=== PATIENT | female | born 1950 | race Caucasian/White ===

== ENCOUNTER 2018-01-26 15:19 | Emergency (ER) | payer MEDICARE, MEDICAID ==
[~2018-01-26] VITALS: Ht 160 cm; Wt 86.4 kg
[~2018-01-26 15:19] MED LIST: AMIT-189 PO; CARB-101 PO; CLON0.3T PO; GABA-532 PO; ONDA8TAB9 PO; PREN1TAB75 PO; PROP40TA72 PO
[2018-01-26 15:33] VITALS: BP 193/102
[2018-01-26] MEDS ORDERED: POTA10TA19 PO (16:21)
[2018-01-26] MEDS ORDERED: METF500T PO (16:21)
[2018-01-26] MEDS ORDERED: FURO40TA4 PO (16:21)
[2018-01-26] MEDS ORDERED: PANT-47 PO (16:21)
[2018-01-26] MEDS ORDERED: PROP40TA72 PO (16:21)
[2018-01-26] MEDS ORDERED: ALBU18HF2 INH (16:21)
[2018-01-26] MEDS ORDERED: NORT25CA PO (16:21)
[2018-01-26] MEDS ORDERED: UMEC62.5 INH (16:21)
[2018-01-26] MEDS ORDERED: CLON-529 PO (16:21)
== END 2018-01-26 16:34 | disposition home or self-care (01) ==
LOC: ER 15:19
DX: I10 Essential (primary) hypertension (principal); J44.9 Chronic obstructive pulmonary disease, unspecified; E11.9 Type 2 diabetes mellitus without complications; Z76.0 Encounter for issue of repeat prescription; G89.29 Other chronic pain; Z90.49 Acquired absence of other specified parts of digestive tract; Z88.8 Allergy status to other drugs, medicaments and biological substances
CPT/HCPCS: 99283

== ENCOUNTER 2020-05-30 00:11 | Emergency (ER) | payer MEDICARE ==
[~2020-05-30] VITALS: Ht 160 cm; Wt 84.1 kg
[~2020-05-30 00:11] MED LIST changes: -AMIT-189 PO; +BUSP5TAB3 PO; -CARB-101 PO; +CARV6.253 PO; -CLON0.3T PO; +CLON0.3T36 PO; +FURO40TA4 PO; -GABA-532 PO; +GABA300C PO; +LACT10SO67 PO; +LACT10SO7 PO; +LEVO25TA7 PO; +METF-950 PO; +NORT25CA PO; +ONDA-103 PO; -ONDA8TAB9 PO; +OXYC-658 PO; +PANT40TA54 PO; -PREN1TAB75 PO; +RIFA550T PO; +SPIR100T5 PO; +UMEC62.5 IH; +thiamine tablet PO
--- NOTE | 2020-05-30 00:38 | NUR ---
Pt is agitated and difficult to do a nurse assessment due to resistance to care.
[2020-05-30 00:50] LABS: BASOPHILS % (AUTO) 0.9 % (0-1); EOSINOPHILS # (AUTO) 0.2 X10'3 (0-0.9); EOSINOPHILS % (AUTO) 6.3 % (0-6); HEMATOCRIT 36.3 % (35.0-45.0); HEMOGLOBIN 12.1 g/dl (12.0-16.0); LYMPHOCYTES # (AUTO) 0.5 X10'3 (1.1-4.8); LYMPHOCYTES % (AUTO) 18.9 % (21-51); MEAN CORPUSCULAR HEMOGLOBIN 30.4 PG (27.0-31.0); MEAN CORPUSCULAR HGB CONC 33.3 g/dL (33.0-36.5); MEAN CORPUSCULAR VOLUME 91.4 FL (78-98); MEAN PLATELET VOLUME 8.1 FL (7.4-10.4); MONOCYTES # (AUTO) 0.6 X10'3 (0-0.9); MONOCYTES % (AUTO) 21.7 % (2-12); NEUTROPHILS # (AUTO) 1.4 X10'3 (1.8-7.7); NEUTROPHILS % (AUTO) 52.2 % (42-75); RED BLOOD COUNT 3.97 X10'6 (4.20-5.60); WHITE BLOOD COUNT 2.7 X10'3 (4.5-11.0)
[2020-05-30 00:56] LABS: ALANINE AMINOTRANSFERASE 44 U/L (12-78); ALBUMIN 3.4 G/DL (3.4-5.0); ALBUMIN/GLOBULIN RATIO 0.6 (1.1-1.5); ALKALINE PHOSPHATASE 129 IU/L (46-116); ANION GAP 11 (8-16); ASPARTATE AMINO TRANSFERASE 66 U/L (10-37); BILIRUBIN,TOTAL 1.1 MG/DL (0.1-1.0); BLOOD UREA NITROGEN 40 MG/DL (7-18); BUN/CREATININE RATIO 20.7 (6.6-38.0); CALCIUM 9.1 MG/DL (8.5-10.1); CHLORIDE 103 MMOL/L (99-107); CREATININE 1.93 MG/DL (0.40-0.90); ETHANOL < 0.010 GM/DL (0.0-0.010); SODIUM 137 MMOL/L (135-145); TOTAL CARBON DIOXIDE 23.1 MMOL/L (24-32); eGFR 26 ML/MIN
[2020-05-30 00:58] LABS: ABG BASE EXCESS -0.2 mmol/L (-2.0-2.0); ABG HCO3 24.1 mmol/L (22.0-26.0); ABG OXYGEN SATURATION 92.8 % (94-97); ABG PO2 (T) 63.6 mmHg (75.0-100.0); ALLEN'S TEST Modified; FCOHb 1.7 % (0.0-3.9); FMetHb 0.1 % (0.0-1.5); FO2Hb 91.1 % (94-97); PATIENT TEMPERATURE 36.4; TOTAL HEMOGLOBIN 12.4 G/dl (12.0-16.0)
[2020-05-30 00:59] LABS: GLUCOSE 154 MG/DL (70-104); POTASSIUM 4.8 MMOL/L (3.5-5.1)
[2020-05-30 01:18] LABS: PLATELET COUNT 48 X10'3 (140-440)
[2020-05-30 01:27] LABS: NUCLEATED RED BLOOD CELLS 2 /100WBC (0-0); TOTAL CELLS COUNTED 100
[2020-05-30 01:28] LABS: PLATELET ESTIMATE DECREASED
[2020-05-30 01:29] LABS: ANISOCYTOSIS 1+
[2020-05-30 01:36] LABS: URINE AMPHETAMINE SCREEN NEGATIVE (Neg); URINE BARBITUATE SCREEN NEGATIVE (Neg); URINE BENZODIAZEPINES SCREEN NEGATIVE (Neg); URINE CANNABINOID SCREEN POSITIVE (Neg); URINE COCAINE SCREEN NEGATIVE (Neg); URINE METHADONE SCREEN NEGATIVE (Neg); URINE OPIATE SCREEN POSITIVE (Neg); URINE PHENCYCLIDINE SCREEN NEGATIVE (Neg)
[2020-05-30] MEDS ORDERED: furosemide 10 MG/1 ML 10ml inj IV ONE (01:40)
[2020-05-30 01:43] LABS: CLARITY,URINE SLIGHTLY CLOUDY (Clear); COLOR,URINE YELLOW (Yellow); GLUCOSE, URINE NEGATIVE (Neg); KETONES,URINE NEGATIVE (Neg); LEUKOCYTE ESTERASE ,URINE NEGATIVE (Neg); NITRITES, URINE NEGATIVE (Neg); OCCULT BLOOD,URINE LARGE (Neg); PROTEIN,URINE TRACE mg/dl (Neg); UROBILINOGEN,URINE 0.2 E.U/dL (0.2-1.0)
[2020-05-30 01:59] LABS: BACTERIA,URINE NONE SEEN /HPF (Neg); SQUAMOUS EPITHELIAL CELL,UR MODERATE /LPF (FEW); UA COLLECTION TYPE STRAIGHT CATH; WBC,URINE NONE SEEN /HPF (0-4)
--- NOTE | 2020-05-30 02:28 | NUR ---
DR. CARTER ASKING PT IF SHE IS FEELING BETTER, PT NOT ANSWERING HIM. MD REPORT TO PT SHE WILL BE DISCHARGED.
[2020-05-30 02:58] VITALS: BP 101/55
[2020-05-30] MEDS ORDERED: NALO4SPR (03:00)
--- NOTE | 2020-05-30 03:15 | NUR ---
sba to [facility] to void. pts son, blossom called for transport home. pt is a&ox3, but remains somulant. Awakenes easily. vss. provided a script for nasal narcan.
--- NOTE | 2020-05-30 03:22 | NUR ---
Pt ready for transport. Called pt's son and call went straight to voicemail. Voicemail full; nurse unable to leave a message. Pt states she has no one else to call to pear picker.
--- NOTE | 2020-05-30 06:21 | NUR ---
Pt asleep in bed. Another unsuccessful attempt to call son was made.
--- NOTE | 2020-05-30 08:00 | NUR ---
TC TO CONTACT PHONE NUMBER FOR SON, GUZMAN ARCHER. PHONE IS UNABLE TO TAKE MESSAGE AT THIS TIME. PATIENT IS ASLEEP ON [place] WITHOUT DISTRESS.
--- NOTE | 2020-05-30 10:55 | NUR ---
PATIENT AWAKE AND ORIENTED. INFORMED PATIENT THAT HER SON WILL BE PICKING HER UP WHEN HE CAN GET OUT OF WORK. UP TO BSC INDEPENDENTLY AND URINATED. GIVEN ICE WATER. AWAITING TRANSPORTATION FROM FAMILY.
== END 2020-05-30 14:12 | disposition home or self-care (01) ==
LOC: ER 00:12
DX: T40.2X1A Poisoning by other opioids, accidental (unintentional), initial encounter (principal); R40.4 Transient alteration of awareness; K72.10 Chronic hepatic failure without coma; Y92.89 Other specified places as the place of occurrence of the external cause; Z88.8 Allergy status to other drugs, medicaments and biological substances; Z79.899 Other long term (current) drug therapy; G40.909 Epilepsy, unspecified, not intractable, without status epilepticus; I10 Essential (primary) hypertension; J44.9 Chronic obstructive pulmonary disease, unspecified; E11.9 Type 2 diabetes mellitus without complications; G89.29 Other chronic pain; Z86.14 Personal history of Methicillin resistant Staphylococcus aureus infection; Z90.49 Acquired absence of other specified parts of digestive tract
CPT/HCPCS: 36415; 36600; 71045; 80053; 80305; 80320; 81001; 82140; 82803; 85007; 85018; 85025; 96374; 99285; J1940

== ENCOUNTER 2021-02-02 07:07 | Day surgery (SDC) | payer MEDICARE, MEDICAID ==
[~2021-02-02] VITALS: Ht 160 cm; Wt 86.5 kg
[~2021-02-02 07:07] MED LIST changes: +METF-1203 PO; -METF-950 PO; +NALO4SPR
[2021-02-02] MEDS ORDERED: LIDOcaine 1% 30ml preserv. free vial SQ STA (07:30)
[2021-02-02] MEDS ORDERED: albumin 25% 100mL bottle x 1 IV PRN (07:35)
[2021-02-02] MEDS ORDERED: IPRA3AMP31 NEB (07:39)
[2021-02-02] MEDS ORDERED: CLON0.1T2 PO (07:39)
[2021-02-02] MEDS ORDERED: MORP60TA77 PO (07:39)
[2021-02-02 07:51] VITALS: BP 139/88
[2021-02-02 08:43] VITALS: BP 150/76
[2021-02-02 08:58] VITALS: BP 128/68
[2021-02-02 09:13] VITALS: BP 125/71
[2021-02-02 09:28] VITALS: BP 124/70
== END 2021-02-02 09:45 | disposition home or self-care (01) ==
LOC: SSTAY O 07:07
PROVIDERS: ATTEND Preventive Medicine Aerospace Medicine
DX: R18.8 Other ascites (principal); R14.0 Abdominal distension (gaseous); K74.60 Unspecified cirrhosis of liver; I10 Essential (primary) hypertension; J44.9 Chronic obstructive pulmonary disease, unspecified; E11.9 Type 2 diabetes mellitus without complications; G89.29 Other chronic pain; Z86.19 Personal history of other infectious and parasitic diseases; Z86.14 Personal history of Methicillin resistant Staphylococcus aureus infection; Z90.49 Acquired absence of other specified parts of digestive tract; Z98.890 Other specified postprocedural states; Z88.8 Allergy status to other drugs, medicaments and biological substances; Z79.899 Other long term (current) drug therapy
CPT/HCPCS: 49083

== ENCOUNTER 2021-03-04 17:49 | Inpatient (IN) | payer MEDICARE, MEDICAID ==
[~2021-03-04] VITALS: Ht 160 cm; Wt 68.2 kg
[~2021-03-04 17:49] MED LIST changes: -BUSP5TAB3 PO; -CARV6.253 PO; +CLON0.1T2 PO; -CLON0.3T36 PO; +IPRA3AMP31 NEB; -LACT10SO7 PO; -METF-1203 PO; +MORP60TA77 PO; -NALO4SPR; -OXYC-658 PO; -UMEC62.5 IH; -thiamine tablet PO
[2021-03-04 19:58] LABS: BASOPHILS % (AUTO) 0.3 % (0-1); EOSINOPHILS % (AUTO) 1.1 % (0-6); HEMATOCRIT 28.6 % (35.0-45.0); HEMOGLOBIN 9.6 g/dl (12.0-16.0); LYMPHOCYTES # (AUTO) 0.3 X10'3 (1.1-4.8); LYMPHOCYTES % (AUTO) 9.1 % (21-51); MEAN CORPUSCULAR HEMOGLOBIN 31.1 PG (27.0-31.0); MEAN CORPUSCULAR HGB CONC 33.4 g/dL (33.0-36.5); MEAN PLATELET VOLUME 7.8 FL (7.4-10.4); MONOCYTES # (AUTO) 0.9 X10'3 (0-0.9); MONOCYTES % (AUTO) 30.4 % (2-12); NEUTROPHILS # (AUTO) 1.7 X10'3 (1.8-7.7); NEUTROPHILS % (AUTO) 59.1 % (42-75); RED BLOOD COUNT 3.08 X10'6 (4.20-5.60); WHITE BLOOD COUNT 2.9 X10'3 (4.5-11.0)
[2021-03-04] MEDS ORDERED: morphine 4 MG/ML inj SYRINge IV ONE (20:00)
[2021-03-04] MEDS ORDERED: ondansetron/PF 4mg/2ml inj IV ONE (20:00)
[2021-03-04 20:03] LABS: PLATELET COUNT 48 X10'3 (140-440)
--- NOTE | 2021-03-04 20:03 | NUR ---
Critical platelet value of 48. Provider notified
[2021-03-04 20:10] LABS: CLARITY,URINE CLEAR (Clear); COLOR,URINE YELLOW (Yellow); GLUCOSE, URINE NEGATIVE (Neg); KETONES,URINE 15 mg/dl (Neg); LEUKOCYTE ESTERASE ,URINE MODERATE (Neg); NITRITES, URINE NEGATIVE (Neg); OCCULT BLOOD,URINE NEGATIVE (Neg); PROTEIN,URINE NEGATIVE (Neg)
[2021-03-04 20:11] LABS: UA COLLECTION TYPE STRAIGHT CATH
[2021-03-04 20:12] LABS: URINE AMPHETAMINE SCREEN NEGATIVE (Neg); URINE BARBITUATE SCREEN NEGATIVE (Neg); URINE BENZODIAZEPINES SCREEN NEGATIVE (Neg); URINE CANNABINOID SCREEN POSITIVE (Neg); URINE COCAINE SCREEN NEGATIVE (Neg); URINE METHADONE SCREEN NEGATIVE (Neg); URINE OPIATE SCREEN POSITIVE (Neg); URINE PHENCYCLIDINE SCREEN NEGATIVE (Neg)
[2021-03-04 20:20] LABS: BACTERIA,URINE NONE SEEN /HPF (Neg); MUCUS STRANDS NONE SEEN /LPF (Neg); RBC,URINE 0-2 /HPF (0-2); SQUAMOUS EPITHELIAL CELL,UR FEW /LPF (FEW)
[2021-03-04 20:23] LABS: ALANINE AMINOTRANSFERASE 16 U/L (12-78); ALBUMIN 2.9 G/DL (3.4-5.0); ALBUMIN/GLOBULIN RATIO 0.6 (1.1-1.5); ALKALINE PHOSPHATASE 122 IU/L (46-116); ANION GAP 9 (8-16); ASPARTATE AMINO TRANSFERASE 51 U/L (10-37); BILIRUBIN,TOTAL 1.9 MG/DL (0.1-1.0); BLOOD UREA NITROGEN 18 MG/DL (7-18); BUN/CREATININE RATIO 12.4 (6.6-38.0); CALCIUM 8.6 MG/DL (8.5-10.1); CHLORIDE 106 MMOL/L (99-107); CREATININE 1.45 MG/DL (0.40-0.90); ETHANOL < 0.010 GM/DL (0.0-0.010); POTASSIUM 4.1 MMOL/L (3.5-5.1); SODIUM 139 MMOL/L (135-145); TOTAL CARBON DIOXIDE 24.1 MMOL/L (24-32); TOTAL PROTEIN 7.9 G/DL (6.4-8.2); eGFR 36 ML/MIN
[2021-03-04 20:25] LABS: GLUCOSE 130 MG/DL (70-104)
[2021-03-04 20:30] LABS: ANISOCYTOSIS 1+; PLATELET ESTIMATE DECREASED; TOTAL CELLS COUNTED 100
[2021-03-04] MEDS ORDERED: lactulose 20gm/30ml cup PO ONE (20:40)
[2021-03-04] MEDS ORDERED: cephalexin 250mg capsule PO ONE (20:40)
[2021-03-04] MEDS ORDERED: normal saline 1000ml 1,000 ML IV ONE (20:40)
[2021-03-04] MEDS ORDERED: diphenhydrAMINE 50 mg/ml inj IM ONE (22:00)
[2021-03-04] MEDS ORDERED: haloperidol lactate 5mg/ml inj IM ONE ×2 (22:00→23:15)
[2021-03-04] MEDS ORDERED: MORP15TA PO (22:17)
[2021-03-04] MEDS ORDERED: loperamide 2mg capsule PO PRN (22:55)
[2021-03-04] MEDS: normal saline 1000ml 1,000 ML IV SCH (22:55)
[2021-03-04] MEDS ORDERED: CefTRIAXone 2gm/D5W 50ml BAG 50 ML IV ONE (22:55)
[2021-03-04] MEDS ORDERED: potassium CL 10mEq/100ml bag 100 ML IV PRN (22:55)
[2021-03-04] MEDS ORDERED: HYDROcodone/acetaminophen 5mg/325mg tablet PO PRN (22:55)
[2021-03-04] MEDS ORDERED: acetaminophen 325mg tablet PO PRN ×2 (22:55)
[2021-03-04] MEDS ORDERED: magnesium 2GM in 50ml NS 50 ML IV PRN (22:55)
[2021-03-04] MEDS ORDERED: magnesium 4gm in 100ml NS 100 ML IV PRN (22:55)
[2021-03-04] MEDS ORDERED: magnesium Cl slow-release 64mg tablet PO PRN (22:55)
[2021-03-04] MEDS ORDERED: ondansetron/PF 4mg/2ml inj IV PRN (22:55)
[2021-03-04] MEDS ORDERED: morphine 2 MG/ML inj. syringe IV PRN (22:55)
[2021-03-04] MEDS ORDERED: potassium Cl 20 mEq SR tablet PO PRN (22:55)
[2021-03-04] MEDS ORDERED: MORP100S7 PO (23:05)
[2021-03-04] MEDS ORDERED: LORA-269 PO (23:05)
[2021-03-04] MEDS ORDERED: HALO2ORA3 PO (23:05)
[2021-03-04] MEDS ORDERED: diphenhydrAMINE 25mg capsule PO ONE (23:15)
[2021-03-04] MEDS: morphine 2 MG/ML inj. syringe IV PRN (23:30)
[2021-03-05] MEDS ORDERED: BIOT5000 PO (01:26)
[2021-03-05] MEDS ORDERED: CIPR-260 PO (01:26)
[2021-03-05] MEDS ORDERED: SENN-173 PO (02:53)
--- NOTE | 2021-03-05 06:39 | NUR ---
Report received from TED Olvera.
--- NOTE | 2021-03-05 06:45 | NUR ---
Patient resting quietly, appears to be sleeping, even chest rise and fall. No apparent distress. Soft restraints in place for pulling on IV per TED Olvera.
[2021-03-05 07:34] LABS: BASOPHILS % (AUTO) 0.8 % (0-1); EOSINOPHILS % (AUTO) 2.3 % (0-6); HEMATOCRIT 25.6 % (35.0-45.0); HEMOGLOBIN 8.6 g/dl (12.0-16.0); LYMPHOCYTES # (AUTO) 0.2 X10'3 (1.1-4.8); LYMPHOCYTES % (AUTO) 15.3 % (21-51); MEAN CORPUSCULAR HEMOGLOBIN 31.4 PG (27.0-31.0); MEAN CORPUSCULAR HGB CONC 33.8 g/dL (33.0-36.5); MEAN PLATELET VOLUME 7.8 FL (7.4-10.4); MONOCYTES # (AUTO) 0.5 X10'3 (0-0.9); MONOCYTES % (AUTO) 33.2 % (2-12); NEUTROPHILS # (AUTO) 0.8 X10'3 (1.8-7.7); NEUTROPHILS % (AUTO) 48.4 % (42-75); RED BLOOD COUNT 2.75 X10'6 (4.20-5.60); RED CELL DISTRIBUTION WIDTH 16.7 % (11.5-14.5); WHITE BLOOD COUNT 1.6 X10'3 (4.5-11.0)
[2021-03-05 07:41] LABS: PLATELET COUNT 40 X10'3 (140-440)
[2021-03-05] MEDS: K and/or MAG REPLACEMENT MC SCH ×2 (08:00→20:00)
[2021-03-05] MEDS ORDERED: lactulose 20gm/30ml cup PO SCH (08:00)
--- NOTE | 2021-03-05 08:00 | NUR ---
Patient resting quietly; appears to be sleeping; no apparent distress.
[2021-03-05 08:12] LABS: ANISOCYTOSIS 1+; PLATELET ESTIMATE DECREASED; TOTAL CELLS COUNTED 100
[2021-03-05 08:23] LABS: ALANINE AMINOTRANSFERASE 18 U/L (12-78); ALBUMIN 2.6 G/DL (3.4-5.0); ALBUMIN/GLOBULIN RATIO 0.6 (1.1-1.5); ALKALINE PHOSPHATASE 105 IU/L (46-116); ANION GAP 10 (8-16); ASPARTATE AMINO TRANSFERASE 41 U/L (10-37); BILIRUBIN,TOTAL 1.3 MG/DL (0.1-1.0); BLOOD UREA NITROGEN 14 MG/DL (7-18); BUN/CREATININE RATIO 9.9 (6.6-38.0); CALCIUM 8.5 MG/DL (8.5-10.1); CHLORIDE 108 MMOL/L (99-107); CREATININE 1.41 MG/DL (0.40-0.90); GLUCOSE 100 MG/DL (70-104); POTASSIUM 3.9 MMOL/L (3.5-5.1); SODIUM 141 MMOL/L (135-145); TOTAL CARBON DIOXIDE 23.4 MMOL/L (24-32); TOTAL PROTEIN 7.3 G/DL (6.4-8.2); eGFR 37 ML/MIN
[2021-03-05] MEDS ORDERED: LORazepam 1 MG tablet PO PRN (09:20)
[2021-03-05] MEDS ORDERED: LORazepam 2 mg/ml vial IV PRN (09:20)
[2021-03-05] MEDS ORDERED: thiamine 100mg/ml 2ml inj. IV ONE (09:20)
[2021-03-05] MEDS ORDERED: haloperidol lactate 5mg/ml inj IM PRN (09:20)
--- NOTE | 2021-03-05 11:30 | NUR ---
Patient assisted to bedside commode by EMT.
[2021-03-05] MEDS: lactulose 20gm/30ml cup PO SCH ×3 (13:07→20:05)
[2021-03-05] MEDS: spironolactone 25 MG tablet PO SCH (13:08)
[2021-03-05] MEDS: levoTHYROXINE 25mcg tablet PO SCH (13:08)
[2021-03-05] MEDS: pantoprazole 40mg Tablet.DR PO SCH (13:08)
[2021-03-05] MEDS: CefTRIAXone/D5W-Rocephin 1gm 50 ML IV SCH (13:08)
[2021-03-05] MEDS: propranolol 10mg tablet PO SCH (13:09)
[2021-03-05] MEDS: morphine 2 MG/ML inj. syringe IV PRN ×2 (13:36→20:14)
--- NOTE | 2021-03-05 16:00 | NUR ---
Received report from TED Novak. Awaiting patient arrival.
--- NOTE | 2021-03-05 16:02 | NUR ---
Report called to TED Kearney
[2021-03-05 16:20] VITALS: BP 153/77
--- NOTE | 2021-03-05 16:20 | NUR ---
Patient arrived to the floor. VSS.
--- NOTE | 2021-03-05 16:51 | NUR ---
Linked Med note: Patient arrived to floor at 1620 with a 1400 dose of Lactulose due. Dose prior to that was given at 1307 in the ER. Called pharmacy and was advised to skip the 1400 dose and continue with the next one.
[2021-03-05 18:00] VITALS: BP 140/67
--- NOTE | 2021-03-05 18:17 | NUR ---
Problems reprioritized. Patient report given, questions answered & plan of care reviewed with TED Pantoja.
[2021-03-05] MEDS: temazepam 15mg capsule PO PRN (23:00)
[2021-03-06] VITALS: BP 128/63
--- NOTE | 2021-03-06 01:47 | NUR ---
PT REFUSED COVID SWAB . KASHIF JEAN ATTEMPTED TO GET COVID VACCINE AND PT WOULD NOT RESPOND TO HER
[2021-03-06] MEDS: lactulose 20gm/30ml cup PO SCH ×4 (02:00→19:47)
--- NOTE | 2021-03-06 06:00 | NUR ---
PT REFUSED COVID SWAB. PT BECAME VERBALLY ABUSIVE TO STAFF WHILE ATTEMPTING TO HAVE AM LAB WORK DRAWN. CHARGE NURSE SHARONA WAS NOTIFIED
[2021-03-06 06:29] LABS: BASOPHILS % (AUTO) 0.8 % (0-1); EOSINOPHILS # (AUTO) 0.1 X10'3 (0-0.9); EOSINOPHILS % (AUTO) 3.7 % (0-6); HEMATOCRIT 26.7 % (35.0-45.0); LYMPHOCYTES # (AUTO) 0.3 X10'3 (1.1-4.8); LYMPHOCYTES % (AUTO) 15.3 % (21-51); MEAN CORPUSCULAR HEMOGLOBIN 31.2 PG (27.0-31.0); MEAN CORPUSCULAR HGB CONC 33.6 g/dL (33.0-36.5); MEAN CORPUSCULAR VOLUME 92.7 FL (78-98); MEAN PLATELET VOLUME 7.6 FL (7.4-10.4); MONOCYTES # (AUTO) 0.6 X10'3 (0-0.9); MONOCYTES % (AUTO) 30.6 % (2-12); NEUTROPHILS % (AUTO) 49.6 % (42-75); RED BLOOD COUNT 2.88 X10'6 (4.20-5.60); RED CELL DISTRIBUTION WIDTH 17.1 % (11.5-14.5)
[2021-03-06 06:37] LABS: PLATELET COUNT 45 X10'3 (140-440)
[2021-03-06 06:52] LABS: ALANINE AMINOTRANSFERASE 19 U/L (12-78); ALBUMIN 2.6 G/DL (3.4-5.0); ALBUMIN/GLOBULIN RATIO 0.5 (1.1-1.5); ALKALINE PHOSPHATASE 106 IU/L (46-116); AMYLASE 28 U/L (25-115); ANION GAP 8 (8-16); ASPARTATE AMINO TRANSFERASE 41 U/L (10-37); BILIRUBIN,TOTAL 0.8 MG/DL (0.1-1.0); BLOOD UREA NITROGEN 16 MG/DL (7-18); BUN/CREATININE RATIO 9.8 (6.6-38.0); CALCIUM 8.4 MG/DL (8.5-10.1); CHLORIDE 108 MMOL/L (99-107); CREATININE 1.63 MG/DL (0.40-0.90); LIPASE < 50 U/L (73-393); MAGNESIUM 1.9 MG/DL (1.5-2.4); PHOSPHORUS 2.6 MG/DL (2.3-4.5); POTASSIUM 3.4 MMOL/L (3.5-5.1); SODIUM 139 MMOL/L (135-145); TOTAL CARBON DIOXIDE 23.3 MMOL/L (24-32); TOTAL PROTEIN 7.5 G/DL (6.4-8.2); eGFR 31 ML/MIN
[2021-03-06 06:53] LABS: GLUCOSE 107 MG/DL (70-104)
[2021-03-06 07:30] VITALS: BP 132/57
[2021-03-06] MEDS ORDERED: multivitamins, therapeutics tablet PO SCH (08:00)
[2021-03-06] MEDS: K and/or MAG REPLACEMENT MC SCH ×2 (08:00→20:13)
[2021-03-06] MEDS: CefTRIAXone/D5W-Rocephin 1gm 50 ML IV SCH (08:11)
[2021-03-06] MEDS: potassium Cl 20 mEq SR tablet PO PRN ×3 (08:11→19:45)
[2021-03-06] MEDS: propranolol 10mg tablet PO SCH (08:12)
[2021-03-06] MEDS: multivitamins, therapeutics tablet PO SCH (08:12)
[2021-03-06] MEDS: haloperidol 5mg tablet PO PRN ×3 (08:12→14:27)
[2021-03-06] MEDS: thiamine 100mg tablet PO SCH (08:12)
[2021-03-06] MEDS: levoTHYROXINE 25mcg tablet PO SCH (08:12)
[2021-03-06] MEDS: spironolactone 25 MG tablet PO SCH (08:12)
[2021-03-06] MEDS: pantoprazole 40mg Tablet.DR PO SCH (08:12)
[2021-03-06] MEDS: morphine 2 MG/ML inj. syringe IV PRN ×2 (08:13→13:13)
[2021-03-06 11:30] VITALS: BP 118/73
--- NOTE | 2021-03-06 12:21 | NUR ---
Angio stated pt won't get the paracentesis until tomorrow, 03/07, d/t the practitioner is out of the facility for the day. TED Swanson, aware, and Dr. Ceja notified via [employer]
--- NOTE | 2021-03-06 14:24 | NUR ---
" to dr silva PAGER ID: [phone] MESSAGE: ok to give ordered Hines to this pt. pain 10/24 not relieved by 2mg morphine 356A maira Vega rn [id number]"
[2021-03-06 14:29] LABS: GIANT PLATELET FEW; MONOCYTES % (MANUAL) 28 % (2-12); NEUTROPHILS % (MANUAL) 55 % (42-75); PLATELET ESTIMATE DECREASED; TOTAL CELLS COUNTED 100
[2021-03-06 14:30] LABS: ANISOCYTOSIS 1+
[2021-03-06] MEDS: HYDROmorphone 1 mg/ml syringe IV PRN ×2 (14:51→19:48)
--- NOTE | 2021-03-06 18:30 | NUR ---
Patient in room KADE 356. I have received report from Kiki JEAN and had the opportunity to ask questions and assume patient care.
--- NOTE | 2021-03-06 20:09 | NUR ---
promotional table spacer promotional table spacer Page Sent promotional table spacer PAGER ID: [phone] MESSAGE: Rigo Bryan PhillA requesting BR TX. Has exp wheezes and does take a neb at home. Please can you order her home med. Thanks Kirsty [phone] (128 character message out of a maximum of 240) Close [X] Send Another Page Thank you for visiting [facility] promotional table spacer promotional table spacer
[2021-03-06] MEDS: HYDROcodone/acetaminophen 10/325mg tab PO PRN (20:56)
[2021-03-06] MEDS: temazepam 15mg capsule PO PRN (21:51)
[2021-03-06] MEDS: normal saline 1000ml 1,000 ML IV SCH (22:55)
[2021-03-07] MEDS: lactulose 20gm/30ml cup PO SCH ×4 (02:00→20:47)
[2021-03-07] MEDS: HYDROmorphone 1 mg/ml syringe IV PRN ×5 (03:29→20:52)
[2021-03-07] MEDS: HYDROcodone/acetaminophen 10/325mg tab PO PRN (05:20)
[2021-03-07 06:14] LABS: BASOPHILS % (AUTO) 0.4 % (0-1); EOSINOPHILS # (AUTO) 0.1 X10'3 (0-0.9); EOSINOPHILS % (AUTO) 3.7 % (0-6); HEMATOCRIT 29.3 % (35.0-45.0); HEMOGLOBIN 9.7 g/dl (12.0-16.0); LYMPHOCYTES # (AUTO) 0.3 X10'3 (1.1-4.8); LYMPHOCYTES % (AUTO) 13.7 % (21-51); MEAN CORPUSCULAR HEMOGLOBIN 31.1 PG (27.0-31.0); MEAN CORPUSCULAR HGB CONC 33.1 g/dL (33.0-36.5); MEAN CORPUSCULAR VOLUME 94.2 FL (78-98); MEAN PLATELET VOLUME 7.9 FL (7.4-10.4); MONOCYTES # (AUTO) 0.6 X10'3 (0-0.9); MONOCYTES % (AUTO) 27.6 % (2-12); NEUTROPHILS # (AUTO) 1.3 X10'3 (1.8-7.7); NEUTROPHILS % (AUTO) 54.6 % (42-75); RED BLOOD COUNT 3.11 X10'6 (4.20-5.60); RED CELL DISTRIBUTION WIDTH 17.3 % (11.5-14.5); WHITE BLOOD COUNT 2.4 X10'3 (4.5-11.0)
[2021-03-07 06:27] LABS: ALANINE AMINOTRANSFERASE 15 U/L (12-78); ALBUMIN 2.7 G/DL (3.4-5.0); ALBUMIN/GLOBULIN RATIO 0.6 (1.1-1.5); ALKALINE PHOSPHATASE 105 IU/L (46-116); AMYLASE 36 U/L (25-115); ANION GAP 8 (8-16); ASPARTATE AMINO TRANSFERASE 37 U/L (10-37); BILIRUBIN,TOTAL 0.7 MG/DL (0.1-1.0); BLOOD UREA NITROGEN 15 MG/DL (7-18); BUN/CREATININE RATIO 10.8 (6.6-38.0); CALCIUM 8.4 MG/DL (8.5-10.1); CHLORIDE 106 MMOL/L (99-107); CREATININE 1.39 MG/DL (0.40-0.90); LIPASE < 50 U/L (73-393); MAGNESIUM 1.8 MG/DL (1.5-2.4); PHOSPHORUS 2.7 MG/DL (2.3-4.5); POTASSIUM 3.7 MMOL/L (3.5-5.1); SODIUM 136 MMOL/L (135-145); TOTAL CARBON DIOXIDE 22.2 MMOL/L (24-32); TOTAL PROTEIN 7.5 G/DL (6.4-8.2); eGFR 37 ML/MIN
[2021-03-07 06:30] LABS: PLATELET COUNT 49 X10'3 (140-440)
[2021-03-07 06:34] LABS: GLUCOSE 123 MG/DL (70-104)
--- NOTE | 2021-03-07 06:35 | NUR ---
Problems reprioritized. Patient report given, questions answered & plan of care reviewed with Kiki Cohen..
--- NOTE | 2021-03-07 06:39 | NUR ---
promotional table spacer promotional table spacer Page Sent promotional table spacer PAGER ID: [phone] MESSAGE: Rigo Bryan PhillA requesting BR TX. Has exp wheezes and does take a neb at home. Please can you order her home med. Thanks Kirsty [phone] (128 character message out of a maximum of 240) Close [X] Send Another Page Thank you for visiting [facility] promotional table spacer promotional table spacer
[2021-03-07 07:00] VITALS: BP 162/74
[2021-03-07] MEDS: K and/or MAG REPLACEMENT MC SCH ×2 (07:11→20:00)
[2021-03-07 07:50] LABS: TOTAL CELLS COUNTED 100
[2021-03-07 07:51] LABS: ANISOCYTOSIS 1+; PLATELET ESTIMATE DECREASED
[2021-03-07] MEDS: CefTRIAXone/D5W-Rocephin 1gm 50 ML IV SCH (08:09)
[2021-03-07] MEDS: thiamine 100mg tablet PO SCH (08:10)
[2021-03-07] MEDS: spironolactone 25 MG tablet PO SCH (08:10)
[2021-03-07] MEDS: haloperidol 5mg tablet PO PRN ×2 (08:10→16:19)
[2021-03-07] MEDS: pantoprazole 40mg Tablet.DR PO SCH (08:11)
[2021-03-07] MEDS: levoTHYROXINE 25mcg tablet PO SCH (08:11)
[2021-03-07] MEDS: multivitamins, therapeutics tablet PO SCH (08:11)
[2021-03-07] MEDS: propranolol 10mg tablet PO SCH (08:11)
[2021-03-07] MEDS: traMADol 50MG tablet PO PRN ×2 (09:34→20:47)
[2021-03-07 11:00] VITALS: BP 162/70
--- NOTE | 2021-03-07 14:29 | NUR ---
Paracentesis ordered for patient. Platelets are 49 therefore we will not be performing para per MD. Will reassess tomorrow. Information given to Pat JEAN - Charge.
--- NOTE | 2021-03-07 15:00 | NUR ---
message to dr silva "PAGER ID: [phone] MESSAGE: [facility] IR wont perform paracentesis due to low PLT 356A maira" dr silva immediately called and asked for # to IR
[2021-03-07 15:25] VITALS: BP 142/65
[2021-03-07 15:50] VITALS: BP 151/73
[2021-03-07] MEDS ORDERED: albumin (human) 25% 100 ML IV solution IV ONE (15:55)
--- NOTE | 2021-03-07 18:15 | NUR ---
Patient in room KADE 356. I have received report from TED Swanson and had the opportunity to ask questions and assume patient care.
[2021-03-07] MEDS ORDERED: ipratropium/albuterol 3ml nebule NEB PRN (18:25)
[2021-03-07] MEDS ORDERED: oxyCODONE/APAP 10/325mg tablet PO PRN (18:45)
[2021-03-07 20:00] VITALS: BP 160/79
[2021-03-07] MEDS: temazepam 15mg capsule PO PRN (21:01)
[2021-03-08] VITALS: BP 140/80
[2021-03-08] MEDS: HYDROmorphone 1 mg/ml syringe IV PRN ×5 (03:33→19:54)
--- NOTE | 2021-03-08 06:08 | NUR ---
Problems reprioritized. Patient report given, questions answered & plan of care reviewed with TED Swanson.
--- NOTE | 2021-03-08 06:34 | NUR ---
pain med orders placed 03/07 were not meant for this pt
[2021-03-08 06:57] LABS: ALANINE AMINOTRANSFERASE 14 U/L (12-78); ALBUMIN/GLOBULIN RATIO 0.6 (1.1-1.5); ALKALINE PHOSPHATASE 106 IU/L (46-116); AMYLASE 50 U/L (25-115); ANION GAP 11 (8-16); ASPARTATE AMINO TRANSFERASE 36 U/L (10-37); BILIRUBIN,TOTAL 0.7 MG/DL (0.1-1.0); BLOOD UREA NITROGEN 12 MG/DL (7-18); BUN/CREATININE RATIO 9.9 (6.6-38.0); CALCIUM 8.6 MG/DL (8.5-10.1); CHLORIDE 106 MMOL/L (99-107); CREATININE 1.21 MG/DL (0.40-0.90); LIPASE < 50 U/L (73-393); MAGNESIUM 1.8 MG/DL (1.5-2.4); POTASSIUM 3.8 MMOL/L (3.5-5.1); SODIUM 137 MMOL/L (135-145); TOTAL CARBON DIOXIDE 20.2 MMOL/L (24-32); TOTAL PROTEIN 7.7 G/DL (6.4-8.2); eGFR 44 ML/MIN
[2021-03-08 06:59] LABS: GLUCOSE 104 MG/DL (70-104)
[2021-03-08 07:00] VITALS: BP 132/61
[2021-03-08] MEDS: K and/or MAG REPLACEMENT MC SCH ×2 (07:27→20:00)
[2021-03-08] MEDS: multivitamins, therapeutics tablet PO SCH (07:34)
[2021-03-08] MEDS: spironolactone 25 MG tablet PO SCH (07:34)
[2021-03-08] MEDS: levoTHYROXINE 25mcg tablet PO SCH (07:34)
[2021-03-08] MEDS: pantoprazole 40mg Tablet.DR PO SCH (07:34)
[2021-03-08] MEDS: thiamine 100mg tablet PO SCH (07:34)
[2021-03-08] MEDS: CefTRIAXone/D5W-Rocephin 1gm 50 ML IV SCH (07:34)
[2021-03-08] MEDS: lactulose 20gm/30ml cup PO SCH ×2 (07:34→19:53)
[2021-03-08] MEDS: propranolol 10mg tablet PO SCH (07:35)
[2021-03-08 09:11] LABS: BASOPHILS % (AUTO) 0.6 % (0-1); EOSINOPHILS # (AUTO) 0.1 X10'3 (0-0.9); EOSINOPHILS % (AUTO) 2.5 % (0-6); HEMATOCRIT 30.4 % (35.0-45.0); HEMOGLOBIN 10.1 g/dl (12.0-16.0); LYMPHOCYTES # (AUTO) 0.3 X10'3 (1.1-4.8); LYMPHOCYTES % (AUTO) 12.9 % (21-51); MEAN CORPUSCULAR HEMOGLOBIN 30.6 PG (27.0-31.0); MEAN CORPUSCULAR HGB CONC 33.1 g/dL (33.0-36.5); MEAN CORPUSCULAR VOLUME 92.2 FL (78-98); MEAN PLATELET VOLUME 7.7 FL (7.4-10.4); MONOCYTES # (AUTO) 0.6 X10'3 (0-0.9); MONOCYTES % (AUTO) 23.4 % (2-12); NEUTROPHILS # (AUTO) 1.5 X10'3 (1.8-7.7); NEUTROPHILS % (AUTO) 60.6 % (42-75); RED BLOOD COUNT 3.29 X10'6 (4.20-5.60); RED CELL DISTRIBUTION WIDTH 16.8 % (11.5-14.5); WHITE BLOOD COUNT 2.5 X10'3 (4.5-11.0)
[2021-03-08 09:14] LABS: PLATELET COUNT 48 X10'3 (140-440)
[2021-03-08 09:53] LABS: TOTAL CELLS COUNTED 100
[2021-03-08 09:54] LABS: ANISOCYTOSIS 1+; ELLIPTOCYTES FEW; PLATELET ESTIMATE DECREASED
--- NOTE | 2021-03-08 09:54 | NUR ---
dr vigil made aware ion person of PLT 48. no orders obtained
--- NOTE | 2021-03-08 10:00 | NUR ---
Initial: Pt admit for ESLD, pancytopenia, and CKD, requesting hospice per MD note. Pt receiving routine Thiamine, Folic acid, and MVI for EtOH. Currently on a regular diet with fluctuating PO intake averaging 54% throughout LOS though up to 100% PO intake at dinner 03/07 meeting estimated nutrient needs. LBM 03/07, documented with diarrhea which is likely r/t routine Lactulose. No nutrition intervention implemented at this time. Will continue to follow. Recommendations: 1) Continue regular diet 2) Continue routine Thiamine, Folic acid, and MVI for EtOH hx 3) Routine bowel care per MD 4) Scaled weight this admit; weekly scaled weights thereafter Addendum: 03/08/21 at [address] Nuñez RD Amended: Links added.
[2021-03-08 11:00] VITALS: BP 151/75
--- NOTE | 2021-03-08 13:37 | NUR ---
message to dr avendano "PAGER ID: [phone] MESSAGE: can you please reorder PO Haldol? looks like order timed out. thank you ChrisA maira Swanson rn"
--- NOTE | 2021-03-08 13:41 | NUR ---
message sent to dr ott "PAGER ID: [phone] MESSAGE: PAGER ID: [phone] MESSAGE: can you please reorder PO Haldol? looks like order timed out. thank you Daniela Swanson rn"
--- NOTE | 2021-03-08 16:20 | NUR ---
message to dr ott "PAGER ID: [phone] MESSAGE: pt stating inadequate relief from 1 mg dilaudid, yet declines [place] and tramadol,. also please reorder PO Katheryn 358A ~Kiki perez [phone]"
[2021-03-08 18:00] VITALS: BP 173/71
--- NOTE | 2021-03-08 18:31 | NUR ---
message to dr ott "PAGER ID: [phone] MESSAGE: pt stating inadequate relief from 1 mg dilaudid, yet declines [place] and tramadol,. also please reorder PO Katheryn 358A ~Kiki perez [phone]"
[2021-03-08] MEDS: temazepam 15mg capsule PO PRN (21:29)
[2021-03-08 22:00] VITALS: BP 137/73
[2021-03-08] MEDS: normal saline 1000ml 1,000 ML IV SCH (22:55)
[2021-03-09] MEDS: HYDROmorphone 1 mg/ml syringe IV PRN ×4 (00:52→10:58)
[2021-03-09 06:07] LABS: BASOPHILS % (AUTO) 0.6 % (0-1); EOSINOPHILS # (AUTO) 0.1 X10'3 (0-0.9); EOSINOPHILS % (AUTO) 2.7 % (0-6); HEMATOCRIT 32.3 % (35.0-45.0); HEMOGLOBIN 10.9 g/dl (12.0-16.0); LYMPHOCYTES # (AUTO) 0.4 X10'3 (1.1-4.8); LYMPHOCYTES % (AUTO) 12.7 % (21-51); MEAN CORPUSCULAR HEMOGLOBIN 30.8 PG (27.0-31.0); MEAN CORPUSCULAR HGB CONC 33.6 g/dL (33.0-36.5); MEAN CORPUSCULAR VOLUME 91.6 FL (78-98); MEAN PLATELET VOLUME 7.3 FL (7.4-10.4); MONOCYTES # (AUTO) 0.7 X10'3 (0-0.9); MONOCYTES % (AUTO) 25.2 % (2-12); NEUTROPHILS # (AUTO) 1.7 X10'3 (1.8-7.7); NEUTROPHILS % (AUTO) 58.8 % (42-75); RED BLOOD COUNT 3.53 X10'6 (4.20-5.60); RED CELL DISTRIBUTION WIDTH 16.8 % (11.5-14.5); WHITE BLOOD COUNT 2.8 X10'3 (4.5-11.0)
[2021-03-09 06:32] LABS: ALANINE AMINOTRANSFERASE 20 U/L (12-78); ALBUMIN 3.1 G/DL (3.4-5.0); ALBUMIN/GLOBULIN RATIO 0.6 (1.1-1.5); ALKALINE PHOSPHATASE 112 IU/L (46-116); AMYLASE 68 U/L (25-115); ANION GAP 8 (8-16); ASPARTATE AMINO TRANSFERASE 40 U/L (10-37); BILIRUBIN,TOTAL 0.8 MG/DL (0.1-1.0); BLOOD UREA NITROGEN 14 MG/DL (7-18); BUN/CREATININE RATIO 10.1 (6.6-38.0); CALCIUM 8.8 MG/DL (8.5-10.1); CHLORIDE 108 MMOL/L (99-107); CREATININE 1.39 MG/DL (0.40-0.90); LIPASE < 50 U/L (73-393); MAGNESIUM 1.9 MG/DL (1.5-2.4); PHOSPHORUS 3.1 MG/DL (2.3-4.5); POTASSIUM 3.9 MMOL/L (3.5-5.1); SODIUM 139 MMOL/L (135-145); TOTAL CARBON DIOXIDE 22.8 MMOL/L (24-32); eGFR 37 ML/MIN
--- NOTE | 2021-03-09 06:35 | NUR ---
Problems reprioritized. Patient report given, questions answered & plan of care reviewed with TED Swanson.
[2021-03-09 06:42] LABS: GLUCOSE 109 MG/DL (70-104)
[2021-03-09 07:00] VITALS: BP 179/80
[2021-03-09 07:44] LABS: PLATELET COUNT 50 X10'3 (140-440)
[2021-03-09 07:50] LABS: ANISOCYTOSIS 1+; ELLIPTOCYTES FEW; PLATELET ESTIMATE DECREASED; TOTAL CELLS COUNTED 100
[2021-03-09] MEDS: K and/or MAG REPLACEMENT MC SCH ×2 (08:00→20:00)
[2021-03-09] MEDS: lactulose 20gm/30ml cup PO SCH ×2 (08:14→19:00)
[2021-03-09] MEDS: thiamine 100mg tablet PO SCH (08:14)
[2021-03-09] MEDS: levoTHYROXINE 25mcg tablet PO SCH (08:15)
[2021-03-09] MEDS: spironolactone 25 MG tablet PO SCH (08:15)
[2021-03-09] MEDS: multivitamins, therapeutics tablet PO SCH (08:15)
[2021-03-09] MEDS: pantoprazole 40mg Tablet.DR PO SCH (08:15)
[2021-03-09] MEDS: propranolol 10mg tablet PO SCH (08:16)
--- NOTE | 2021-03-09 08:34 | NUR ---
message to dr ott "PAGER ID: [phone] MESSAGE: plt 50. was 48 on 03/08 359A maira bo rn [phone]"
[2021-03-09 11:00] VITALS: BP 165/82
[2021-03-09] MEDS: HYDROcodone/acetaminophen 10/325mg tab PO PRN ×2 (14:14→18:58)
--- NOTE | 2021-03-09 18:40 | NUR ---
Patient in room KADE 356. I have received report from PAPI JEAN and had the opportunity to ask questions and assume patient care.
[2021-03-09] MEDS: buPROPion SR 150mg tablet PO SCH (18:58)
[2021-03-09] MEDS: rifaximin 550mg tablet PO SCH (19:00)
[2021-03-09 19:53] LABS: HIV ANTIBODY 1&2 RAPID NON-REACTIVE (Neg)
[2021-03-09 20:00] VITALS: BP 162/76
[2021-03-10] VITALS: BP 158/82
--- NOTE | 2021-03-10 06:30 | NUR ---
Problems reprioritized. Patient report given, questions answered & plan of care reviewed with DAVID JEAN.
[2021-03-10 07:00] VITALS: BP 150/56
--- NOTE | 2021-03-10 07:02 | NUR ---
Patient in room KADE 356. I have received report from Keeley Mina RN and had the opportunity to ask questions and assume patient care.
[2021-03-10] MEDS: K and/or MAG REPLACEMENT MC SCH ×2 (08:00→20:00)
--- NOTE | 2021-03-10 08:40 | NUR ---
Pt refused medications this am, refused assessment and pt care. Pt stated she wants to be left alone, yelled profanities and cover her face with blanket. Dr Thao notified.
[2021-03-10] MEDS: thiamine 100mg tablet PO SCH (09:13)
[2021-03-10] MEDS: amLODIPine 5mg tablet PO SCH (09:13)
[2021-03-10] MEDS: rifaximin 550mg tablet PO SCH ×3 (09:13→23:43)
[2021-03-10] MEDS: propranolol 10mg tablet PO SCH (09:13)
[2021-03-10] MEDS: pantoprazole 40mg Tablet.DR PO SCH (09:14)
[2021-03-10] MEDS: buPROPion SR 150mg tablet PO SCH (09:14)
[2021-03-10] MEDS: levoTHYROXINE 25mcg tablet PO SCH (09:14)
[2021-03-10] MEDS: multivitamins, therapeutics tablet PO SCH (09:14)
[2021-03-10] MEDS: folic acid 1mg tablet PO SCH (09:14)
[2021-03-10] MEDS: spironolactone 25 MG tablet PO SCH (09:15)
[2021-03-10] MEDS: lactulose 20gm/30ml cup PO SCH (09:15)
[2021-03-10 11:00] VITALS: BP 188/71
--- NOTE | 2021-03-10 17:34 | NUR ---
dc neutropenic precautions per Dr Darnell
--- NOTE | 2021-03-10 18:35 | NUR ---
Problems reprioritized. Patient report given, questions answered & plan of care reviewed with Keeley Mina RN.
--- NOTE | 2021-03-10 18:40 | NUR ---
Patient in room KADE 356. I have received report from DAVID and had the opportunity to ask questions and assume patient care.
--- NOTE | 2021-03-10 21:00 | NUR ---
PATIENT REFUSED VITAL SIGNS TAKEN.
[2021-03-10] MEDS: HYDROcodone/acetaminophen 10/325mg tab PO PRN (23:44)
[2021-03-11] VITALS: BP 166/82
[2021-03-11 07:00] VITALS: BP 144/58
--- NOTE | 2021-03-11 07:11 | NUR ---
Problems reprioritized. Patient report given, questions answered & plan of care reviewed with RADHA JEAN.
[2021-03-11] MEDS: K and/or MAG REPLACEMENT MC SCH ×2 (08:00→20:00)
[2021-03-11] MEDS: propranolol 10mg tablet PO SCH (09:09)
[2021-03-11] MEDS: spironolactone 25 MG tablet PO SCH (09:10)
[2021-03-11] MEDS: buPROPion SR 150mg tablet PO SCH (09:10)
[2021-03-11] MEDS: folic acid 1mg tablet PO SCH (09:10)
[2021-03-11] MEDS: rifaximin 550mg tablet PO SCH ×2 (09:10→19:18)
[2021-03-11] MEDS: multivitamins, therapeutics tablet PO SCH (09:11)
[2021-03-11] MEDS: pantoprazole 40mg Tablet.DR PO SCH (09:11)
[2021-03-11] MEDS: amLODIPine 5mg tablet PO SCH (09:11)
[2021-03-11] MEDS: thiamine 100mg tablet PO SCH (09:12)
[2021-03-11] MEDS: levoTHYROXINE 25mcg tablet PO SCH (09:12)
[2021-03-11 18:00] VITALS: BP 188/73
--- NOTE | 2021-03-11 18:20 | NUR ---
Patient in room KADE 356. I have received report from TED Garnett and had the opportunity to ask questions and assume patient care.
[2021-03-11] MEDS: HYDROcodone/acetaminophen 10/325mg tab PO PRN (19:19)
[2021-03-12 00:27] VITALS: BP 158/67
--- NOTE | 2021-03-12 06:27 | NUR ---
Problems reprioritized. Patient report given, questions answered & plan of care reviewed with TED Ramirez.
[2021-03-12 07:00] VITALS: BP 140/58
[2021-03-12 07:58] LABS: BASOPHILS % (AUTO) 0.5 % (0-1); EOSINOPHILS % (AUTO) 0.2 % (0-6); HEMATOCRIT 31.1 % (35.0-45.0); HEMOGLOBIN 10.6 g/dl (12.0-16.0); LYMPHOCYTES # (AUTO) 0.7 X10'3 (1.1-4.8); LYMPHOCYTES % (AUTO) 10.6 % (21-51); MEAN CORPUSCULAR HGB CONC 34.2 g/dL (33.0-36.5); MEAN CORPUSCULAR VOLUME 90.6 FL (78-98); MEAN PLATELET VOLUME 7.2 FL (7.4-10.4); MONOCYTES # (AUTO) 1.2 X10'3 (0-0.9); NEUTROPHILS # (AUTO) 4.5 X10'3 (1.8-7.7); NEUTROPHILS % (AUTO) 70.7 % (42-75); PLATELET COUNT 54 X10'3 (140-440); RED BLOOD COUNT 3.43 X10'6 (4.20-5.60); RED CELL DISTRIBUTION WIDTH 16.3 % (11.5-14.5); WHITE BLOOD COUNT 6.4 X10'3 (4.5-11.0)
[2021-03-12] MEDS: K and/or MAG REPLACEMENT MC SCH ×2 (08:00→20:00)
[2021-03-12] MEDS: folic acid 1mg tablet PO SCH (08:29)
[2021-03-12] MEDS: thiamine 100mg tablet PO SCH (08:30)
[2021-03-12] MEDS: pantoprazole 40mg Tablet.DR PO SCH (08:30)
[2021-03-12] MEDS: buPROPion SR 150mg tablet PO SCH (08:30)
[2021-03-12] MEDS: multivitamins, therapeutics tablet PO SCH (08:30)
[2021-03-12] MEDS: levoTHYROXINE 25mcg tablet PO SCH (08:30)
[2021-03-12] MEDS: amLODIPine 5mg tablet PO SCH (08:31)
[2021-03-12] MEDS: spironolactone 25 MG tablet PO SCH (08:32)
[2021-03-12] MEDS: rifaximin 550mg tablet PO SCH ×2 (08:37→20:17)
[2021-03-12] MEDS: propranolol 10mg tablet PO SCH (08:38)
[2021-03-12 09:09] LABS: ALBUMIN 3.1 G/DL (3.4-5.0); ALBUMIN/GLOBULIN RATIO 0.6 (1.1-1.5); ALKALINE PHOSPHATASE 100 IU/L (46-116); ANION GAP 16 (8-16); ASPARTATE AMINO TRANSFERASE 41 U/L (10-37); BILIRUBIN,TOTAL 1.5 MG/DL (0.1-1.0); BLOOD UREA NITROGEN 23 MG/DL (7-18); BUN/CREATININE RATIO 18.3 (6.6-38.0); CALCIUM 8.4 MG/DL (8.5-10.1); CHLORIDE 105 MMOL/L (99-107); CREATININE 1.26 MG/DL (0.40-0.90); GLUCOSE 120 MG/DL (70-104); POTASSIUM 3.7 MMOL/L (3.5-5.1); SODIUM 138 MMOL/L (135-145); TOTAL CARBON DIOXIDE 17.5 MMOL/L (24-32); eGFR 42 ML/MIN
[2021-03-12 09:12] LABS: ALANINE AMINOTRANSFERASE < 6 U/L (12-78)
[2021-03-12 10:14] LABS: ANISOCYTOSIS 1+; PLATELET ESTIMATE DECREASED; TOTAL CELLS COUNTED 100
[2021-03-12 10:15] LABS: ROULEAUX 1+
[2021-03-12 10:17] LABS: ELLIPTOCYTES 1+; POLYCHROMASIA FEW; SCHISTOCYTES FEW; TEAR DROP CELLS FEW
[2021-03-12 11:00] VITALS: BP 160/70
[2021-03-12 18:00] VITALS: BP 151/67
--- NOTE | 2021-03-12 18:03 | NUR ---
Patient in room KADE 356. I have received report from TED Ramirez and had the opportunity to ask questions and assume patient care.
[2021-03-12] MEDS ORDERED: propranolol 10mg tablet PO SCH (20:00)
[2021-03-12 23:28] VITALS: BP 159/90
[2021-03-13] MEDS: HYDROcodone/acetaminophen 10/325mg tab PO PRN ×3 (00:04→22:50)
--- NOTE | 2021-03-13 06:26 | NUR ---
Problems reprioritized. Patient report given, questions answered & plan of care reviewed with TED Hightower. Addendum: 03/13/21 at 0626 by Nori Lorenzo RN Problems reprioritized. Patient report given, questions answered & plan of care reviewed with TED Dorantes.
--- NOTE | 2021-03-13 06:30 | NUR ---
Patient in room KADE 356. I have received report from Yonny John RN and had the opportunity to ask questions and assume patient care.
[2021-03-13 07:00] VITALS: BP 138/68
[2021-03-13 07:18] LABS: BASOPHILS % (AUTO) 0.4 % (0-1); EOSINOPHILS % (AUTO) 0.6 % (0-6); HEMATOCRIT 29.8 % (35.0-45.0); HEMOGLOBIN 10.2 g/dl (12.0-16.0); LYMPHOCYTES # (AUTO) 0.7 X10'3 (1.1-4.8); LYMPHOCYTES % (AUTO) 11.1 % (21-51); MEAN CORPUSCULAR HEMOGLOBIN 30.7 PG (27.0-31.0); MEAN CORPUSCULAR HGB CONC 34.3 g/dL (33.0-36.5); MEAN CORPUSCULAR VOLUME 89.5 FL (78-98); MEAN PLATELET VOLUME 7.2 FL (7.4-10.4); MONOCYTES # (AUTO) 1.5 X10'3 (0-0.9); NEUTROPHILS # (AUTO) 4.1 X10'3 (1.8-7.7); NEUTROPHILS % (AUTO) 63.9 % (42-75); PLATELET COUNT 54 X10'3 (140-440); RED BLOOD COUNT 3.33 X10'6 (4.20-5.60); WHITE BLOOD COUNT 6.5 X10'3 (4.5-11.0)
[2021-03-13 07:33] LABS: ALANINE AMINOTRANSFERASE 17 U/L (12-78); ALBUMIN/GLOBULIN RATIO 0.7 (1.1-1.5); ALKALINE PHOSPHATASE 93 IU/L (46-116); ANION GAP 11 (8-16); ASPARTATE AMINO TRANSFERASE 41 U/L (10-37); BILIRUBIN,TOTAL 1.3 MG/DL (0.1-1.0); BLOOD UREA NITROGEN 25 MG/DL (7-18); CALCIUM 8.5 MG/DL (8.5-10.1); CHLORIDE 107 MMOL/L (99-107); CREATININE 1.25 MG/DL (0.40-0.90); POTASSIUM 3.4 MMOL/L (3.5-5.1); SODIUM 137 MMOL/L (135-145); TOTAL CARBON DIOXIDE 19.2 MMOL/L (24-32); TOTAL PROTEIN 7.6 G/DL (6.4-8.2); eGFR 42 ML/MIN
[2021-03-13] MEDS: folic acid 1mg tablet PO SCH (07:33)
[2021-03-13] MEDS: pantoprazole 40mg Tablet.DR PO SCH (07:33)
[2021-03-13] MEDS: thiamine 100mg tablet PO SCH (07:34)
[2021-03-13] MEDS: rifaximin 550mg tablet PO SCH ×2 (07:34→20:43)
[2021-03-13] MEDS: levoTHYROXINE 25mcg tablet PO SCH (07:34)
[2021-03-13] MEDS: multivitamins, therapeutics tablet PO SCH (07:34)
[2021-03-13] MEDS ORDERED: propranolol 10mg tablet PO SCH (07:37)
[2021-03-13 07:41] LABS: GLUCOSE 141 MG/DL (70-104)
[2021-03-13] MEDS: amLODIPine 5mg tablet PO SCH (07:41)
[2021-03-13] MEDS: spironolactone 25 MG tablet PO SCH (07:42)
[2021-03-13] MEDS: propranolol 10mg tablet PO SCH ×2 (07:42→20:43)
[2021-03-13 08:00] LABS: CARBOHYDRATE ANTIGEN 19-9 17 U/mL (0-35); HBSAG SCREEN Negative (Negative); HEP A AB, IGM Negative (Negative); HEPATITIS C ANTIBODY >11.0 s/co ratio (0.0-0.9)
[2021-03-13] MEDS: K and/or MAG REPLACEMENT MC SCH ×2 (08:00→20:00)
--- NOTE | 2021-03-13 11:57 | NUR ---
Reassessment: Pt has been noted to be refusing some care and is also refusing most meals now. Pt states she does not have an appetite. Pt seemed a little confused upon assessment though she is willing to try ONS, recommend Ensure Enlive TID; to be sent pending MD verification. No other food preferences voiced. If pt also refuses ONS, may benefit from TF to meet nutritional needs. LB 03/12. Will continue to monitor. Recommendations: 1) Continue regular diet 2) Ensure Enlive TID; pending MD verification 3) Continue routine Thiamine, Folic acid, and MVI for EtOH hx 4) Routine bowel care per MD 5) Scaled weight this admit; weekly scaled weights thereafter 6) IF pt continues to refuse PO, consider TF Addendum: 03/13/21 at [address] Amended: Links added.
[2021-03-13 12:00] VITALS: BP 168/59
[2021-03-13] MEDS: lactose-reduced food (Ensure Enlive) - 237ml bottle PO SCH ×2 (13:00→18:00)
--- NOTE | 2021-03-13 18:00 | NUR ---
Problems reprioritized. Patient report given, questions answered & plan of care reviewed with Dora Blancas RN.
--- NOTE | 2021-03-13 18:04 | NUR ---
Patient in room KADE 356. I have received report from TED Dorantes and had the opportunity to ask questions and assume patient care.
--- NOTE | 2021-03-13 18:08 | NUR ---
Problems reprioritized. Patient report given, questions answered & plan of care reviewed with TED PaniaguaT.
[2021-03-13 20:00] VITALS: BP 136/60
[2021-03-14] VITALS: BP 144/69
--- NOTE | 2021-03-14 06:29 | NUR ---
Problems reprioritized. Patient report given, questions answered & plan of care reviewed with TED Dorantes.
--- NOTE | 2021-03-14 06:30 | NUR ---
Patient in room KADE 356. I have received report from Dora Blancas RN and had the opportunity to ask questions and assume patient care.
[2021-03-14 06:35] LABS: BASOPHILS % (AUTO) 0.5 % (0-1); EOSINOPHILS % (AUTO) 0.7 % (0-6); HEMATOCRIT 32.2 % (35.0-45.0); HEMOGLOBIN 11.2 g/dl (12.0-16.0); LYMPHOCYTES # (AUTO) 0.8 X10'3 (1.1-4.8); LYMPHOCYTES % (AUTO) 11.9 % (21-51); MEAN CORPUSCULAR HEMOGLOBIN 31.1 PG (27.0-31.0); MEAN CORPUSCULAR HGB CONC 34.8 g/dL (33.0-36.5); MEAN CORPUSCULAR VOLUME 89.4 FL (78-98); MEAN PLATELET VOLUME 7.3 FL (7.4-10.4); MONOCYTES # (AUTO) 1.6 X10'3 (0-0.9); MONOCYTES % (AUTO) 24.6 % (2-12); NEUTROPHILS # (AUTO) 4.2 X10'3 (1.8-7.7); NEUTROPHILS % (AUTO) 62.3 % (42-75); PLATELET COUNT 61 X10'3 (140-440); WHITE BLOOD COUNT 6.7 X10'3 (4.5-11.0)
[2021-03-14 07:31] LABS: ALANINE AMINOTRANSFERASE 22 U/L (12-78); ALBUMIN 3.2 G/DL (3.4-5.0); ALBUMIN/GLOBULIN RATIO 0.6 (1.1-1.5); ALKALINE PHOSPHATASE 107 IU/L (46-116); ANION GAP 9 (8-16); ASPARTATE AMINO TRANSFERASE 44 U/L (10-37); BILIRUBIN,TOTAL 1.1 MG/DL (0.1-1.0); BLOOD UREA NITROGEN 22 MG/DL (7-18); BUN/CREATININE RATIO 16.3 (6.6-38.0); CALCIUM 8.7 MG/DL (8.5-10.1); CHLORIDE 109 MMOL/L (99-107); CREATININE 1.35 MG/DL (0.40-0.90); POTASSIUM 3.6 MMOL/L (3.5-5.1); SODIUM 139 MMOL/L (135-145); TOTAL CARBON DIOXIDE 20.9 MMOL/L (24-32); TOTAL PROTEIN 8.2 G/DL (6.4-8.2); eGFR 39 ML/MIN
[2021-03-14 07:35] LABS: GLUCOSE 137 MG/DL (70-104)
[2021-03-14] MEDS: lactose-reduced food (Ensure Enlive) - 237ml bottle PO SCH ×3 (08:00→18:48)
[2021-03-14] MEDS: K and/or MAG REPLACEMENT MC SCH ×2 (08:00→20:00)
[2021-03-14 09:07] LABS: PLATELET ESTIMATE DECREASED; TOTAL CELLS COUNTED 100
[2021-03-14] MEDS: thiamine 100mg tablet PO SCH (09:31)
[2021-03-14] MEDS: amLODIPine 5mg tablet PO SCH (09:31)
[2021-03-14] MEDS: spironolactone 25 MG tablet PO SCH (09:31)
[2021-03-14] MEDS: HYDROcodone/acetaminophen 10/325mg tab PO PRN (09:31)
[2021-03-14] MEDS: levoTHYROXINE 25mcg tablet PO SCH (09:32)
[2021-03-14] MEDS: propranolol 10mg tablet PO SCH ×2 (09:32→19:25)
[2021-03-14] MEDS: multivitamins, therapeutics tablet PO SCH (09:32)
[2021-03-14] MEDS: folic acid 1mg tablet PO SCH (09:32)
[2021-03-14] MEDS: pantoprazole 40mg Tablet.DR PO SCH (09:32)
[2021-03-14] MEDS: rifaximin 550mg tablet PO SCH ×2 (09:32→19:25)
--- NOTE | 2021-03-14 18:11 | NUR ---
Problems reprioritized. Patient report given, questions answered & plan of care reviewed with TED Noel.
--- NOTE | 2021-03-14 19:00 | NUR ---
Patient in room KADE 356. I have received report from TED Dorantes and had the opportunity to ask questions and assume patient care.
[2021-03-14 20:00] VITALS: BP 124/58
[2021-03-15 00:08] VITALS: BP 129/56
--- NOTE | 2021-03-15 06:23 | NUR ---
Problems reprioritized. Patient report given, questions answered & plan of care reviewed with TED Estevez.
--- NOTE | 2021-03-15 06:30 | NUR ---
Patient in room KADE 356A. I have received report from TED RASHID and had the opportunity to ask questions and assume patient care.
[2021-03-15 07:00] VITALS: BP 148/60
[2021-03-15] MEDS: K and/or MAG REPLACEMENT MC SCH ×2 (08:00→20:00)
[2021-03-15] MEDS: lactose-reduced food (Ensure Enlive) - 237ml bottle PO SCH ×3 (08:00→18:00)
[2021-03-15 09:16] LABS: BASOPHILS % (AUTO) 0.4 % (0-1); EOSINOPHILS % (AUTO) 0.6 % (0-6); HEMATOCRIT 35.6 % (35.0-45.0); HEMOGLOBIN 12.2 g/dl (12.0-16.0); LYMPHOCYTES # (AUTO) 0.5 X10'3 (1.1-4.8); LYMPHOCYTES % (AUTO) 10.7 % (21-51); MEAN CORPUSCULAR HEMOGLOBIN 30.9 PG (27.0-31.0); MEAN CORPUSCULAR HGB CONC 34.4 g/dL (33.0-36.5); MEAN PLATELET VOLUME 8.1 FL (7.4-10.4); MONOCYTES # (AUTO) 0.8 X10'3 (0-0.9); MONOCYTES % (AUTO) 18.1 % (2-12); NEUTROPHILS # (AUTO) 3.2 X10'3 (1.8-7.7); NEUTROPHILS % (AUTO) 70.2 % (42-75); PLATELET COUNT 51 X10'3 (140-440); RED BLOOD COUNT 3.96 X10'6 (4.20-5.60); RED CELL DISTRIBUTION WIDTH 16.1 % (11.5-14.5); WHITE BLOOD COUNT 4.5 X10'3 (4.5-11.0)
[2021-03-15 09:35] LABS: ALANINE AMINOTRANSFERASE 28 U/L (12-78); ALBUMIN 3.5 G/DL (3.4-5.0); ALBUMIN/GLOBULIN RATIO 0.7 (1.1-1.5); ALKALINE PHOSPHATASE 121 IU/L (46-116); ANION GAP 11 (8-16); ASPARTATE AMINO TRANSFERASE 48 U/L (10-37); BILIRUBIN,TOTAL 1.6 MG/DL (0.1-1.0); BLOOD UREA NITROGEN 27 MG/DL (7-18); BUN/CREATININE RATIO 22.5 (6.6-38.0); CALCIUM 8.8 MG/DL (8.5-10.1); CHLORIDE 106 MMOL/L (99-107); POTASSIUM 3.8 MMOL/L (3.5-5.1); SODIUM 139 MMOL/L (135-145); TOTAL CARBON DIOXIDE 22.3 MMOL/L (24-32); TOTAL PROTEIN 8.8 G/DL (6.4-8.2); eGFR 44 ML/MIN
[2021-03-15 09:42] LABS: GLUCOSE 163 MG/DL (70-104)
[2021-03-15 11:00] VITALS: BP 161/74
[2021-03-15] MEDS: folic acid 1mg tablet PO SCH (11:11)
[2021-03-15] MEDS: multivitamins, therapeutics tablet PO SCH (11:11)
[2021-03-15] MEDS: thiamine 100mg tablet PO SCH (11:11)
[2021-03-15] MEDS: rifaximin 550mg tablet PO SCH ×2 (11:11→20:22)
[2021-03-15] MEDS: levoTHYROXINE 25mcg tablet PO SCH (11:11)
[2021-03-15] MEDS: spironolactone 25 MG tablet PO SCH (11:12)
[2021-03-15] MEDS: propranolol 10mg tablet PO SCH ×2 (11:12→20:23)
[2021-03-15] MEDS: pantoprazole 40mg Tablet.DR PO SCH (11:12)
[2021-03-15] MEDS: amLODIPine 5mg tablet PO SCH (11:13)
--- NOTE | 2021-03-15 15:29 | NUR ---
F/u 03/15: Pt PO meals continues to be poor refusing almost all meals past 4 days not meeting needs. Ensure Enlive verified in EMR w/ pt refusing first ONS though PO 83% past three ONS still only partially meeting needs. Pt remains ALOC AOx2/confused and confused at baseline per MD note. RD paged MD regarding appetite stimulant if agreeable given pt reported low appetite and poor PO meal trends. LBM 03/14 per EMR. Will continue to monitor for additional nutrition intervention needs. Recommendations: 1) Continue regular diet; encourage PO 2) Ensure Enlive TIDWM; encourage PO 3) Continue routine Thiamine, Folic acid, and MVI for EtOH hx 4) appetite stimulant per MD discretion; pt reports low appetite 5) IF pt continues to refuse meals and ONS PO declines would benefit from EN via NG to optimize nutrition status 6) Routine bowel care per MD 7) Scaled weight this admit; weekly scaled weights thereafter Addendum: 03/15/21 at [address] Amended: Links added.
--- NOTE | 2021-03-15 19:11 | NUR ---
Problems reprioritized. Patient report given, questions answered & plan of care reviewed with TED ONTIVEROS.
[2021-03-15 20:00] VITALS: BP 160/80
[2021-03-16] VITALS: BP 150/80
[2021-03-16 06:23] LABS: BASOPHILS % (AUTO) 0.4 % (0-1); EOSINOPHILS % (AUTO) 0.6 % (0-6); HEMOGLOBIN 10.8 g/dl (12.0-16.0); LYMPHOCYTES # (AUTO) 0.6 X10'3 (1.1-4.8); LYMPHOCYTES % (AUTO) 9.7 % (21-51); MEAN CORPUSCULAR HEMOGLOBIN 31.1 PG (27.0-31.0); MEAN CORPUSCULAR HGB CONC 34.8 g/dL (33.0-36.5); MEAN CORPUSCULAR VOLUME 89.4 FL (78-98); MEAN PLATELET VOLUME 7.8 FL (7.4-10.4); MONOCYTES # (AUTO) 1.1 X10'3 (0-0.9); MONOCYTES % (AUTO) 19.5 % (2-12); NEUTROPHILS # (AUTO) 4.1 X10'3 (1.8-7.7); NEUTROPHILS % (AUTO) 69.8 % (42-75); PLATELET COUNT 56 X10'3 (140-440); RED BLOOD COUNT 3.47 X10'6 (4.20-5.60); RED CELL DISTRIBUTION WIDTH 16.3 % (11.5-14.5); WHITE BLOOD COUNT 5.9 X10'3 (4.5-11.0)
[2021-03-16 06:30] VITALS: BP 156/65
[2021-03-16 06:32] LABS: ALANINE AMINOTRANSFERASE 25 U/L (12-78); ALBUMIN 3.3 G/DL (3.4-5.0); ALBUMIN/GLOBULIN RATIO 0.7 (1.1-1.5); ALKALINE PHOSPHATASE 114 IU/L (46-116); ANION GAP 14 (8-16); ASPARTATE AMINO TRANSFERASE 47 U/L (10-37); BILIRUBIN,TOTAL 1.5 MG/DL (0.1-1.0); BLOOD UREA NITROGEN 28 MG/DL (7-18); BUN/CREATININE RATIO 22.2 (6.6-38.0); CALCIUM 8.8 MG/DL (8.5-10.1); CHLORIDE 106 MMOL/L (99-107); CREATININE 1.26 MG/DL (0.40-0.90); POTASSIUM 3.9 MMOL/L (3.5-5.1); SODIUM 140 MMOL/L (135-145); TOTAL CARBON DIOXIDE 20.5 MMOL/L (24-32); TOTAL PROTEIN 8.2 G/DL (6.4-8.2); eGFR 42 ML/MIN
[2021-03-16 06:34] LABS: GLUCOSE 136 MG/DL (70-104)
[2021-03-16] MEDS: K and/or MAG REPLACEMENT MC SCH (07:30)
[2021-03-16] MEDS: lactose-reduced food (Ensure Enlive) - 237ml bottle PO SCH ×2 (07:30→08:30)
[2021-03-16 08:23] LABS: ANISOCYTOSIS 1+; PLATELET ESTIMATE DECREASED; SCHISTOCYTES FEW
[2021-03-16] MEDS: propranolol 10mg tablet PO SCH (09:42)
[2021-03-16] MEDS: folic acid 1mg tablet PO SCH (09:43)
[2021-03-16] MEDS: multivitamins, therapeutics tablet PO SCH (09:43)
[2021-03-16] MEDS: rifaximin 550mg tablet PO SCH (09:43)
[2021-03-16] MEDS: levoTHYROXINE 25mcg tablet PO SCH (09:43)
[2021-03-16] MEDS: spironolactone 25 MG tablet PO SCH (09:44)
[2021-03-16] MEDS: pantoprazole 40mg Tablet.DR PO SCH (09:44)
[2021-03-16] MEDS: thiamine 100mg tablet PO SCH (09:45)
[2021-03-16] MEDS: amLODIPine 5mg tablet PO SCH (09:45)
[2021-03-16 11:00] VITALS: BP 164/80
[2021-03-16] MEDS: HYDROcodone/acetaminophen 10/325mg tab PO PRN (13:09)
--- NOTE | 2021-03-16 13:10 | NUR ---
Pt transferred to SNF [place] via ambulance. IV DC'd, tip intact. All belongings sent w/pt.
== END 2021-03-16 13:23 | DRG 441 ==
LOC: ER 17:50 → ED HOLD 22:55 → UNDOADMIN 22:55 → SUR 3N 03-05 16:02 → ED HOLD 03-05 16:02
PROVIDERS: ADMIT Internal Medicine; ATTEND Family Medicine
PROC: 0W9G3ZZ Drainage of Peritoneal Cavity, Percutaneous Approach (ICD-10-PCS; principal; 2021-03-07)
DX: K72.90 Hepatic failure, unspecified without coma (principal); K76.7 Hepatorenal syndrome; N39.0 Urinary tract infection, site not specified; D61.818 Other pancytopenia; D68.4 Acquired coagulation factor deficiency; I12.0 Hypertensive chronic kidney disease with stage 5 chronic kidney disease or end stage renal disease; K70.31 Alcoholic cirrhosis of liver with ascites; F10.20 Alcohol dependence, uncomplicated; Z20.822 Contact with and (suspected) exposure to COVID-19; B19.20 Unspecified viral hepatitis C without hepatic coma; F41.1 Generalized anxiety disorder; E11.22 Type 2 diabetes mellitus with diabetic chronic kidney disease; F32.A Depression, unspecified; J44.9 Chronic obstructive pulmonary disease, unspecified; Z66 Do not resuscitate; G89.29 Other chronic pain; R19.7 Diarrhea, unspecified; Z88.8 Allergy status to other drugs, medicaments and biological substances; Z90.49 Acquired absence of other specified parts of digestive tract; Z56.0 Unemployment, unspecified; E87.6 Hypokalemia; N18.30 Chronic kidney disease, stage 3 unspecified
CPT/HCPCS: 36415; 49083; 70450; 71045; 80053; 80074; 80305; 80320; 81001; 82103; 82140; 82150; 83690; 83735; 84100; 84443; 85007; 85008; 85025; 85610; 86301; 86304; 86703; 87088; 87635; 93005; 94760; 96361; 96365; 96372; 96375; 97116; 97161; 97530; 99285; G0378; J0696; J1170; J1200; J1630; J2270; J2405; J3411; J7030; P9047

== ENCOUNTER 2021-05-01 18:24 | Emergency (ER) | payer MEDICARE, MEDICAID ==
[~2021-05-01] VITALS: Ht 165.1 cm; Wt 86.5 kg
[~2021-05-01 18:24] MED LIST changes: +BIOT5000 PO; +CIPR-260 PO; -CLON0.1T2 PO; +HALO2ORA3 PO; +LORA-269 PO; +MORP100S7 PO; +MORP15TA PO; -MORP60TA77 PO; -NORT25CA PO; -ONDA-103 PO; -RIFA550T PO; +SENN-173 PO
[2021-05-01 18:42] VITALS: BP 147/77
[2021-05-01] MEDS ORDERED: SPIR50TA5 PO (20:50)
[2021-05-01] MEDS ORDERED: FURO40TA4 PO (20:50)
[2021-05-01] MEDS ORDERED: RIFA200T2 PO (20:50)
== END 2021-05-01 21:12 | disposition home or self-care (01) ==
LOC: ER 18:27
DX: R14.0 Abdominal distension (gaseous) (principal); I10 Essential (primary) hypertension; J44.9 Chronic obstructive pulmonary disease, unspecified; E11.9 Type 2 diabetes mellitus without complications; Z76.0 Encounter for issue of repeat prescription; G89.29 Other chronic pain; Z86.19 Personal history of other infectious and parasitic diseases; Z86.14 Personal history of Methicillin resistant Staphylococcus aureus infection; Z90.49 Acquired absence of other specified parts of digestive tract; Z56.0 Unemployment, unspecified; Z88.8 Allergy status to other drugs, medicaments and biological substances; Z79.2 Long term (current) use of antibiotics; Z79.899 Other long term (current) drug therapy
CPT/HCPCS: 99284

== ENCOUNTER 2021-05-04 17:05 | Emergency (ER) | payer MEDICARE, MEDICAID ==
[~2021-05-04] VITALS: Ht 165.1 cm; Wt 72.0 kg
[~2021-05-04 17:05] MED LIST changes: +RIFA200T2 PO; +SPIR50TA5 PO
[2021-05-04 17:27] VITALS: BP 113/53
[2021-05-04] MEDS ORDERED: LACT10SO32 PO (18:03)
[2021-05-04] MEDS ORDERED: LACT10SO3 PO (18:04)
[2021-05-04] MEDS ORDERED: lactulose 20gm/30ml cup PO ONE (18:35)
== END 2021-05-04 18:42 | disposition home or self-care (01) ==
LOC: ER 17:06
DX: Z76.0 Encounter for issue of repeat prescription (principal); I10 Essential (primary) hypertension; J44.9 Chronic obstructive pulmonary disease, unspecified; E11.9 Type 2 diabetes mellitus without complications; G89.29 Other chronic pain; Z86.69 Personal history of other diseases of the nervous system and sense organs; Z86.19 Personal history of other infectious and parasitic diseases; Z86.14 Personal history of Methicillin resistant Staphylococcus aureus infection; Z90.49 Acquired absence of other specified parts of digestive tract; Z90.89 Acquired absence of other organs; Z72.89 Other problems related to lifestyle; Z56.0 Unemployment, unspecified; Z88.8 Allergy status to other drugs, medicaments and biological substances; Z79.2 Long term (current) use of antibiotics; Z79.899 Other long term (current) drug therapy
CPT/HCPCS: 99281

== ENCOUNTER 2021-05-10 11:26 | Inpatient (IN) | payer MEDICARE, MEDICAID ==
[~2021-05-10] VITALS: Ht 165.1 cm; Wt 76.4 kg
[~2021-05-10 11:26] MED LIST changes: +LACT10SO3 PO
[2021-05-10 13:48] LABS: BASOPHILS % (AUTO) 0.2 % (0-1); EOSINOPHILS % (AUTO) 0.6 % (0-6); HEMATOCRIT 24.6 % (35.0-45.0); HEMOGLOBIN 7.8 g/dl (12.0-16.0); LYMPHOCYTES # (AUTO) 0.4 X10'3 (1.1-4.8); LYMPHOCYTES % (AUTO) 4.7 % (21-51); MEAN CORPUSCULAR HEMOGLOBIN 30.1 PG (27.0-31.0); MEAN CORPUSCULAR HGB CONC 31.8 g/dL (33.0-36.5); MEAN CORPUSCULAR VOLUME 94.5 FL (78-98); MEAN PLATELET VOLUME 8.2 FL (7.4-10.4); MONOCYTES # (AUTO) 1.7 X10'3 (0-0.9); MONOCYTES % (AUTO) 21.9 % (2-12); NEUTROPHILS # (AUTO) 5.6 X10'3 (1.8-7.7); NEUTROPHILS % (AUTO) 72.6 % (42-75); PLATELET COUNT 62 X10'3 (140-440); RED CELL DISTRIBUTION WIDTH 19.9 % (11.5-14.5); WHITE BLOOD COUNT 7.7 X10'3 (4.5-11.0)
[2021-05-10 14:02] LABS: ALANINE AMINOTRANSFERASE 32 U/L (12-78); ALBUMIN 2.6 G/DL (3.4-5.0); ALBUMIN/GLOBULIN RATIO 0.5 (1.1-1.5); ALKALINE PHOSPHATASE 205 IU/L (46-116); ANION GAP 12 (8-16); ASPARTATE AMINO TRANSFERASE 49 U/L (10-37); BILIRUBIN,TOTAL 1.1 MG/DL (0.1-1.0); BLOOD UREA NITROGEN 33 MG/DL (7-18); BUN/CREATININE RATIO 18.3 (6.6-38.0); CALCIUM 7.8 MG/DL (8.5-10.1); CHLORIDE 106 MMOL/L (99-107); GLUCOSE 143 MG/DL (70-104); POTASSIUM 4.6 MMOL/L (3.5-5.1); SODIUM 138 MMOL/L (135-145); TOTAL CARBON DIOXIDE 19.9 MMOL/L (24-32); TOTAL PROTEIN 7.5 G/DL (6.4-8.2); eGFR 28 ML/MIN
[2021-05-10 15:44] LABS: ANISOCYTOSIS 2+; ELLIPTOCYTES FEW; PLATELET ESTIMATE DECREASED; SCHISTOCYTES FEW
[2021-05-10 16:05] LABS: MAGNESIUM 1.7 MG/DL (1.5-2.4)
[2021-05-10] MEDS ORDERED: LIDOcaine 1% 30ml preserv. free vial IJ STA (17:33)
[2021-05-10 18:46] LABS: AMYLASE,BODY FLUID 6 U/L; GLUCOSE,BODY FLUID 136 MG/DL; LDH,BODY FLUID 48 U/L
[2021-05-10 19:21] LABS: BF RBC COUNT 315 /CU MM; BF WBC COUNT 201 /CU MM (0-1000); BFAPPEAR HAZY; BFCOLOR YELLOW; BFVOLUME 55 ML
[2021-05-10 19:24] LABS: LYMPHOCYTES,BODY FLUID 18 %; MONOCYTES,BODY FLUID 41 %; NEUTROPHILS,BODY FLUID 41 %
[2021-05-10 19:25] LABS: CRYSTAL ID, BODY FLD NONE SEEN (NONE SEEN)
[2021-05-10 19:34] LABS: TOTAL PROTEIN,BODY FLUID < 2.0 G/DL
[2021-05-10 19:50] LABS: CLARITY,URINE CLEAR (Clear); COLOR,URINE YELLOW (Yellow); GLUCOSE, URINE NEGATIVE (Neg); KETONES,URINE NEGATIVE (Neg); LEUKOCYTE ESTERASE ,URINE NEGATIVE (Neg); NITRITES, URINE NEGATIVE (Neg); OCCULT BLOOD,URINE NEGATIVE (Neg); PH,URINE 5.5 (4.8-8.0); PROTEIN,URINE NEGATIVE (Neg); UROBILINOGEN,URINE 0.2 E.U/dL (0.2-1.0)
[2021-05-10 19:54] LABS: UA COLLECTION TYPE VOIDED
[2021-05-10] MEDS ORDERED: magnesium 4gm in 100ml NS 100 ML IV PRN (20:35)
[2021-05-10] MEDS ORDERED: magnesium Cl slow-release 64mg tablet PO PRN (20:35)
[2021-05-10] MEDS ORDERED: morphine 2 MG/ML inj. syringe IV PRN ×2 (20:35)
[2021-05-10] MEDS ORDERED: normal saline 1000ml 1,000 ML IV SCH (20:35)
[2021-05-10] MEDS ORDERED: acetaminophen 325mg tablet PO PRN ×2 (20:35)
[2021-05-10] MEDS ORDERED: potassium CL 10mEq/100ml bag 100 ML IV PRN (20:35)
[2021-05-10] MEDS ORDERED: ondansetron/PF 4mg/2ml inj IV PRN (20:35)
[2021-05-10] MEDS ORDERED: potassium Cl 20 mEq SR tablet PO PRN ×2 (20:35)
[2021-05-10] MEDS ORDERED: HYDROcodone/acetaminophen 5mg/325mg tablet PO PRN (20:35)
[2021-05-10] MEDS ORDERED: magnesium 2GM in 50ml NS 50 ML IV PRN (20:35)
[2021-05-10] MEDS ORDERED: CLON0.1T2 PO (21:07)
[2021-05-10] MEDS ORDERED: RIFA550T PO (21:07)
--- NOTE | 2021-05-10 21:37 | NUR ---
PT BROUGHT TO RM 356A FROM ER VIA GURNEY, TRANSFERRED TO BED, NOTED RASH OVER BODY,SMALL HIVES, PT STATES ITCHING ALL OVER, RASH MOSTLY TO BACK, TRUNK, ABD THIGHS AND ARMS WITH SCRATCH TOMAS. PT PUT IN SOLATION ROOM 353. Addendum: 05/10/21 at 2205 by Vivi Browne RN Amended: Links added.
[2021-05-11] VITALS: BP 129/58
--- NOTE | 2021-05-11 06:20 | NUR ---
Patient in room KADE 353. I have received report from TED Resendiz and had the opportunity to ask questions and assume patient care.
[2021-05-11 06:59] LABS: BASOPHILS % (AUTO) 0.4 % (0-1); EOSINOPHILS # (AUTO) 0.1 X10'3 (0-0.9); EOSINOPHILS % (AUTO) 1.9 % (0-6); HEMOGLOBIN 7.9 g/dl (12.0-16.0); LYMPHOCYTES # (AUTO) 0.3 X10'3 (1.1-4.8); LYMPHOCYTES % (AUTO) 7.4 % (21-51); MEAN CORPUSCULAR HEMOGLOBIN 30.4 PG (27.0-31.0); MEAN CORPUSCULAR HGB CONC 32.8 g/dL (33.0-36.5); MEAN CORPUSCULAR VOLUME 92.7 FL (78-98); MEAN PLATELET VOLUME 7.7 FL (7.4-10.4); MONOCYTES # (AUTO) 1.2 X10'3 (0-0.9); MONOCYTES % (AUTO) 25.9 % (2-12); NEUTROPHILS % (AUTO) 64.4 % (42-75); RED BLOOD COUNT 2.58 X10'6 (4.20-5.60); RED CELL DISTRIBUTION WIDTH 19.4 % (11.5-14.5); WHITE BLOOD COUNT 4.7 X10'3 (4.5-11.0)
[2021-05-11 07:00] VITALS: BP 112/64
[2021-05-11 07:05] LABS: ALANINE AMINOTRANSFERASE 34 U/L (12-78); ALBUMIN 2.4 G/DL (3.4-5.0); ALBUMIN/GLOBULIN RATIO 0.5 (1.1-1.5); ALKALINE PHOSPHATASE 179 IU/L (46-116); ANION GAP 11 (8-16); ASPARTATE AMINO TRANSFERASE 51 U/L (10-37); BILIRUBIN,TOTAL 1.2 MG/DL (0.1-1.0); BLOOD UREA NITROGEN 33 MG/DL (7-18); CALCIUM 7.7 MG/DL (8.5-10.1); CHLORIDE 107 MMOL/L (99-107); CREATININE 1.74 MG/DL (0.40-0.90); GLUCOSE 141 MG/DL (70-104); SODIUM 140 MMOL/L (135-145); TOTAL CARBON DIOXIDE 22.2 MMOL/L (24-32); eGFR 29 ML/MIN
[2021-05-11 07:06] LABS: PLATELET COUNT 45 X10'3 (140-440); POTASSIUM 4.9 MMOL/L (3.5-5.1)
[2021-05-11] MEDS: K and/or MAG REPLACEMENT MC SCH ×2 (07:55→19:58)
[2021-05-11] MEDS ORDERED: heparin, porcine 5000 units/ml vial SQ SCH (08:00)
[2021-05-11] MEDS: cloNIDine 0.1 mg tablet PO SCH ×2 (09:56→19:59)
[2021-05-11] MEDS: spironolactone 25 MG tablet PO SCH (09:57)
[2021-05-11] MEDS: rifaximin 550mg tablet PO SCH ×2 (10:20→19:59)
[2021-05-11] MEDS: pantoprazole 40mg Tablet.DR PO SCH (10:20)
[2021-05-11] MEDS: propranolol 10mg tablet PO SCH ×3 (10:21→20:02)
[2021-05-11] MEDS: furosemide 40mg tablet PO SCH (10:21)
[2021-05-11] MEDS: levoTHYROXINE 25mcg tablet PO SCH (10:21)
[2021-05-11] MEDS: lactulose 20gm/30ml cup PO SCH ×3 (10:23→19:59)
--- NOTE | 2021-05-11 10:51 | NUR ---
DM consult re: "T2DM states diet controlled". DM is well controlled with A1c 6.0%, DM education not warranted at this time. Will continue to follow. Addendum: 05/11/21 at [address] Danielle Nuñez RD Amended: Links added.
[2021-05-11] MEDS ORDERED: Permethrin Cream 60gm TP ONE (10:55)
[2021-05-11 11:00] VITALS: BP 115/68
[2021-05-11] MEDS: HYDROcodone/acetaminophen 10/325mg tab PO PRN ×2 (12:19→16:57)
[2021-05-11 18:00] VITALS: BP 131/75
--- NOTE | 2021-05-11 18:30 | NUR ---
Problems reprioritized. Patient report given, questions answered & plan of care reviewed with TED Resendiz.
[2021-05-11 20:00] VITALS: BP 120/65
[2021-05-11] MEDS ORDERED: lactulose 20gm/30ml cup PO SCH (21:00)
[2021-05-12] VITALS: BP 137/81
[2021-05-12] MEDS: HYDROcodone/acetaminophen 10/325mg tab PO PRN ×5 (01:48→21:27)
[2021-05-12] MEDS: lactulose 20gm/30ml cup PO SCH ×4 (01:51→20:00)
--- NOTE | 2021-05-12 06:20 | NUR ---
Patient in room KADE 353. I have received report from TED Resendiz and had the opportunity to ask questions and assume patient care.
[2021-05-12 07:48] VITALS: BP 95/51
[2021-05-12 07:50] VITALS: BP 125/64
[2021-05-12] MEDS: cloNIDine 0.1 mg tablet PO SCH ×2 (08:00→20:29)
[2021-05-12] MEDS: furosemide 40mg tablet PO SCH (08:00)
[2021-05-12] MEDS: spironolactone 25 MG tablet PO SCH (08:00)
[2021-05-12] MEDS: propranolol 10mg tablet PO SCH ×3 (08:00→20:28)
[2021-05-12 08:09] LABS: BASOPHILS % (AUTO) 0.5 % (0-1); EOSINOPHILS # (AUTO) 0.1 X10'3 (0-0.9); EOSINOPHILS % (AUTO) 2.6 % (0-6); HEMATOCRIT 24.5 % (35.0-45.0); HEMOGLOBIN 7.9 g/dl (12.0-16.0); LYMPHOCYTES # (AUTO) 0.4 X10'3 (1.1-4.8); LYMPHOCYTES % (AUTO) 8.6 % (21-51); MEAN CORPUSCULAR HGB CONC 32.3 g/dL (33.0-36.5); MEAN CORPUSCULAR VOLUME 92.9 FL (78-98); MEAN PLATELET VOLUME 8.3 FL (7.4-10.4); MONOCYTES # (AUTO) 1.3 X10'3 (0-0.9); MONOCYTES % (AUTO) 29.5 % (2-12); NEUTROPHILS # (AUTO) 2.6 X10'3 (1.8-7.7); NEUTROPHILS % (AUTO) 58.8 % (42-75); RED BLOOD COUNT 2.64 X10'6 (4.20-5.60); RED CELL DISTRIBUTION WIDTH 19.4 % (11.5-14.5); WHITE BLOOD COUNT 4.5 X10'3 (4.5-11.0)
[2021-05-12 08:16] LABS: PLATELET COUNT 46 X10'3 (140-440)
[2021-05-12] MEDS: levoTHYROXINE 25mcg tablet PO SCH (08:38)
[2021-05-12] MEDS: pantoprazole 40mg Tablet.DR PO SCH (08:38)
[2021-05-12] MEDS: rifaximin 550mg tablet PO SCH ×2 (08:38→20:29)
[2021-05-12 08:49] LABS: ALANINE AMINOTRANSFERASE 29 U/L (12-78); ALBUMIN 2.1 G/DL (3.4-5.0); ALBUMIN/GLOBULIN RATIO 0.5 (1.1-1.5); ALKALINE PHOSPHATASE 158 IU/L (46-116); ANION GAP 11 (8-16); ASPARTATE AMINO TRANSFERASE 37 U/L (10-37); BILIRUBIN,TOTAL 0.7 MG/DL (0.1-1.0); BLOOD UREA NITROGEN 34 MG/DL (7-18); BUN/CREATININE RATIO 19.9 (6.6-38.0); CALCIUM 7.3 MG/DL (8.5-10.1); CHLORIDE 108 MMOL/L (99-107); CREATININE 1.71 MG/DL (0.40-0.90); GLUCOSE 134 MG/DL (70-104); POTASSIUM 4.7 MMOL/L (3.5-5.1); SODIUM 140 MMOL/L (135-145); TOTAL CARBON DIOXIDE 21.1 MMOL/L (24-32); TOTAL PROTEIN 6.3 G/DL (6.4-8.2); eGFR 29 ML/MIN
[2021-05-12] MEDS: K and/or MAG REPLACEMENT MC SCH ×2 (10:56→20:00)
[2021-05-12 11:00] VITALS: BP 106/56
--- NOTE | 2021-05-12 18:25 | NUR ---
Problems reprioritized. Patient report given, questions answered & plan of care reviewed with TED Resendiz.
[2021-05-12 19:00] VITALS: BP 130/75
[2021-05-13] VITALS (9 sets, daily range): BP systolic 92–120; BP diastolic 49–74
[2021-05-13] MEDS: lactulose 20gm/30ml cup PO SCH ×4 (02:00→20:09)
[2021-05-13] MEDS: HYDROcodone/acetaminophen 10/325mg tab PO PRN ×5 (02:45→22:13)
[2021-05-13 06:05] LABS: BASOPHILS % (AUTO) 0.7 % (0-1); EOSINOPHILS # (AUTO) 0.1 X10'3 (0-0.9); HEMOGLOBIN 8.3 g/dl (12.0-16.0); MONOCYTES # (AUTO) 1.1 X10'3 (0-0.9); NEUTROPHILS # (AUTO) 2.5 X10'3 (1.8-7.7); WHITE BLOOD COUNT 4.1 X10'3 (4.5-11.0)
[2021-05-13 06:07] LABS: HEMATOCRIT 25.8 % (35.0-45.0); LYMPHOCYTES # (AUTO) 0.3 X10'3 (1.1-4.8); LYMPHOCYTES % (AUTO) 8.2 % (21-51); MEAN CORPUSCULAR HEMOGLOBIN 30.8 PG (27.0-31.0); MEAN CORPUSCULAR HGB CONC 32.1 g/dL (33.0-36.5); MEAN CORPUSCULAR VOLUME 95.8 FL (78-98); MEAN PLATELET VOLUME 8.2 FL (7.4-10.4); MONOCYTES % (AUTO) 27.5 % (2-12); NEUTROPHILS % (AUTO) 60.6 % (42-75); RED CELL DISTRIBUTION WIDTH 19.8 % (11.5-14.5)
[2021-05-13 06:11] LABS: PLATELET COUNT 36 X10'3 (140-440)
--- NOTE | 2021-05-13 06:15 | NUR ---
Patient in room KADE 353. I have received report from TED Resendiz and had the opportunity to ask questions and assume patient care.
[2021-05-13 06:37] LABS: ALANINE AMINOTRANSFERASE 31 U/L (12-78); ALBUMIN 2.1 G/DL (3.4-5.0); ALBUMIN/GLOBULIN RATIO 0.5 (1.1-1.5); ALKALINE PHOSPHATASE 154 IU/L (46-116); ANION GAP 12 (8-16); ASPARTATE AMINO TRANSFERASE 51 U/L (10-37); BILIRUBIN,TOTAL 0.5 MG/DL (0.1-1.0); BLOOD UREA NITROGEN 37 MG/DL (7-18); BUN/CREATININE RATIO 20.4 (6.6-38.0); CALCIUM 7.3 MG/DL (8.5-10.1); CHLORIDE 106 MMOL/L (99-107); CREATININE 1.81 MG/DL (0.40-0.90); GLUCOSE 123 MG/DL (70-104); SODIUM 137 MMOL/L (135-145); TOTAL CARBON DIOXIDE 18.8 MMOL/L (24-32); TOTAL PROTEIN 6.5 G/DL (6.4-8.2); eGFR 28 ML/MIN
[2021-05-13 06:39] LABS: POTASSIUM 5.1 MMOL/L (3.5-5.1)
[2021-05-13] MEDS: furosemide 40mg tablet PO SCH (08:00)
[2021-05-13] MEDS: propranolol 10mg tablet PO SCH ×3 (08:00→20:09)
[2021-05-13] MEDS: spironolactone 25 MG tablet PO SCH (08:00)
[2021-05-13] MEDS: cloNIDine 0.1 mg tablet PO SCH ×2 (08:00→20:00)
[2021-05-13] MEDS: K and/or MAG REPLACEMENT MC SCH ×2 (08:00→19:59)
[2021-05-13] MEDS: rifaximin 550mg tablet PO SCH ×2 (09:08→20:09)
[2021-05-13] MEDS: levoTHYROXINE 25mcg tablet PO SCH (09:08)
[2021-05-13] MEDS: pantoprazole 40mg Tablet.DR PO SCH (09:08)
--- NOTE | 2021-05-13 19:15 | NUR ---
Problems reprioritized. Patient report given, questions answered & plan of care reviewed with TED Pulido.
[2021-05-14] VITALS: BP 112/75
[2021-05-14] MEDS: lactulose 20gm/30ml cup PO SCH ×4 (02:44→20:14)
[2021-05-14] MEDS: HYDROcodone/acetaminophen 10/325mg tab PO PRN ×5 (02:51→21:10)
[2021-05-14 06:26] LABS: BASOPHILS % (AUTO) 0.7 % (0-1); EOSINOPHILS # (AUTO) 0.1 X10'3 (0-0.9); EOSINOPHILS % (AUTO) 2.4 % (0-6); HEMATOCRIT 27.4 % (35.0-45.0); HEMOGLOBIN 8.9 g/dl (12.0-16.0); LYMPHOCYTES # (AUTO) 0.4 X10'3 (1.1-4.8); LYMPHOCYTES % (AUTO) 7.3 % (21-51); MEAN CORPUSCULAR HEMOGLOBIN 29.9 PG (27.0-31.0); MEAN CORPUSCULAR HGB CONC 32.3 g/dL (33.0-36.5); MEAN CORPUSCULAR VOLUME 92.7 FL (78-98); MEAN PLATELET VOLUME 8.7 FL (7.4-10.4); MONOCYTES # (AUTO) 1.2 X10'3 (0-0.9); MONOCYTES % (AUTO) 24.6 % (2-12); NEUTROPHILS # (AUTO) 3.2 X10'3 (1.8-7.7); PLATELET COUNT 66 X10'3 (140-440); RED BLOOD COUNT 2.96 X10'6 (4.20-5.60); RED CELL DISTRIBUTION WIDTH 19.3 % (11.5-14.5); WHITE BLOOD COUNT 4.9 X10'3 (4.5-11.0)
[2021-05-14 06:51] LABS: ALANINE AMINOTRANSFERASE 36 U/L (12-78); ALBUMIN 2.4 G/DL (3.4-5.0); ALBUMIN/GLOBULIN RATIO 0.5 (1.1-1.5); ALKALINE PHOSPHATASE 159 IU/L (46-116); ANION GAP 10 (8-16); ASPARTATE AMINO TRANSFERASE 48 U/L (10-37); BILIRUBIN,TOTAL 0.7 MG/DL (0.1-1.0); BLOOD UREA NITROGEN 36 MG/DL (7-18); BUN/CREATININE RATIO 19.7 (6.6-38.0); CALCIUM 7.7 MG/DL (8.5-10.1); CHLORIDE 105 MMOL/L (99-107); CREATININE 1.83 MG/DL (0.40-0.90); GLUCOSE 141 MG/DL (70-104); POTASSIUM 4.5 MMOL/L (3.5-5.1); SODIUM 137 MMOL/L (135-145); TOTAL CARBON DIOXIDE 22.3 MMOL/L (24-32); TOTAL PROTEIN 7.2 G/DL (6.4-8.2); eGFR 27 ML/MIN
[2021-05-14 07:00] VITALS: BP 121/73
[2021-05-14] MEDS: furosemide 40mg tablet PO SCH (07:43)
[2021-05-14] MEDS: pantoprazole 40mg Tablet.DR PO SCH (07:44)
[2021-05-14] MEDS: rifaximin 550mg tablet PO SCH ×2 (07:44→20:13)
[2021-05-14] MEDS: spironolactone 25 MG tablet PO SCH (07:44)
[2021-05-14] MEDS: propranolol 10mg tablet PO SCH ×3 (07:45→20:13)
[2021-05-14] MEDS: cloNIDine 0.1 mg tablet PO SCH ×2 (07:45→20:13)
[2021-05-14] MEDS: levoTHYROXINE 25mcg tablet PO SCH (07:45)
[2021-05-14] MEDS: K and/or MAG REPLACEMENT MC SCH ×2 (07:45→20:00)
[2021-05-14 09:05] VITALS: BP 89/53
[2021-05-14 09:18] LABS: ANISOCYTOSIS 2+; PLATELET ESTIMATE DECREASED; TOTAL CELLS COUNTED 100
[2021-05-14 09:19] LABS: BURR CELLS FEW; SCHISTOCYTES FEW
[2021-05-14 09:35] VITALS: BP 85/47
[2021-05-14] MEDS ORDERED: albumin (human) 25% 100 ML IV solution IV ONE (09:35)
[2021-05-14 11:00] VITALS: BP 103/63
--- NOTE | 2021-05-14 15:53 | NUR ---
Initial: Pt admit dx cirrhosis of liver w/ ascites, acute hepatic encephalopathy, chronic anemia, thrombocytopenia, CKD stage 4, CHF, and scabies per EMR. Pt underwent paracentesis 05/14 w/ removal of 5500 cc per EMR. Pt currently on regular diet and eating well with avg 83% and meeting needs. LBM 05/14. No nutrition intervention implemented at this time. Will continue to monitor. Recommendations: 1. Continue regular diet 2. Routine bowel care 3. Scaled wt this admit, subsequent weekly scaled wts Addendum: 05/14/21 at [address] Amended: Links added. Addendum: 05/14/21 at [address] I have reviewed assessment by physician/internist
[2021-05-14 18:00] VITALS: BP 119/65
[2021-05-15] VITALS: BP 97/53
[2021-05-15] MEDS: lactulose 20gm/30ml cup PO SCH ×3 (01:15→13:11)
[2021-05-15] MEDS: HYDROcodone/acetaminophen 10/325mg tab PO PRN ×3 (01:15→13:12)
[2021-05-15] MEDS: K and/or MAG REPLACEMENT MC SCH (06:33)
[2021-05-15 07:14] LABS: ALANINE AMINOTRANSFERASE 33 U/L (12-78); ALBUMIN 2.5 G/DL (3.4-5.0); ALBUMIN/GLOBULIN RATIO 0.6 (1.1-1.5); ALKALINE PHOSPHATASE 152 IU/L (46-116); ANION GAP 11 (8-16); ASPARTATE AMINO TRANSFERASE 49 U/L (10-37); BILIRUBIN,TOTAL 0.4 MG/DL (0.1-1.0); BLOOD UREA NITROGEN 38 MG/DL (7-18); BUN/CREATININE RATIO 19.5 (6.6-38.0); CALCIUM 7.9 MG/DL (8.5-10.1); CHLORIDE 107 MMOL/L (99-107); CREATININE 1.95 MG/DL (0.40-0.90); GLUCOSE 120 MG/DL (70-104); SODIUM 137 MMOL/L (135-145); TOTAL CARBON DIOXIDE 18.8 MMOL/L (24-32); eGFR 25 ML/MIN
[2021-05-15 07:15] LABS: POTASSIUM 5.7 MMOL/L (3.5-5.1)
[2021-05-15 08:00] VITALS: BP 100/51
[2021-05-15] MEDS: spironolactone 25 MG tablet PO SCH (08:00)
[2021-05-15] MEDS: propranolol 10mg tablet PO SCH ×2 (08:00→13:12)
[2021-05-15] MEDS: furosemide 40mg tablet PO SCH (08:00)
[2021-05-15] MEDS: cloNIDine 0.1 mg tablet PO SCH (08:00)
[2021-05-15] MEDS: levoTHYROXINE 25mcg tablet PO SCH (08:36)
[2021-05-15] MEDS: rifaximin 550mg tablet PO SCH (08:36)
[2021-05-15] MEDS: pantoprazole 40mg Tablet.DR PO SCH (08:36)
--- NOTE | 2021-05-15 10:19 | NUR ---
Message: windy Knightyn Irvin room 353. BP 100/51, HR 61 Hold all BP meds or only those with parameters? thank you, Vasile JEAN Custom Responses: promotional table spacer Transaction number: [id number]
[2021-05-15 10:39] LABS: BASOPHILS % (AUTO) 0.5 % (0-1); EOSINOPHILS # (AUTO) 0.2 X10'3 (0-0.9); EOSINOPHILS % (AUTO) 3.5 % (0-6); HEMATOCRIT 25.8 % (35.0-45.0); HEMOGLOBIN 8.3 g/dl (12.0-16.0); LYMPHOCYTES # (AUTO) 0.4 X10'3 (1.1-4.8); LYMPHOCYTES % (AUTO) 8.2 % (21-51); MEAN CORPUSCULAR HEMOGLOBIN 29.8 PG (27.0-31.0); MEAN CORPUSCULAR HGB CONC 32.3 g/dL (33.0-36.5); MEAN CORPUSCULAR VOLUME 92.4 FL (78-98); MEAN PLATELET VOLUME 8.7 FL (7.4-10.4); MONOCYTES # (AUTO) 1.3 X10'3 (0-0.9); MONOCYTES % (AUTO) 24.9 % (2-12); NEUTROPHILS # (AUTO) 3.3 X10'3 (1.8-7.7); NEUTROPHILS % (AUTO) 62.9 % (42-75); PLATELET COUNT 69 X10'3 (140-440); RED BLOOD COUNT 2.79 X10'6 (4.20-5.60); RED CELL DISTRIBUTION WIDTH 18.6 % (11.5-14.5); WHITE BLOOD COUNT 5.2 X10'3 (4.5-11.0)
[2021-05-15 11:00] VITALS: BP 112/51
[2021-05-15] MEDS ORDERED: LACT10SO67 PO (12:30)
--- NOTE | 2021-05-15 15:34 | NUR ---
PER DR BURGESS, GIVE PT KAYEXALATE BUT MAKE SURE PT STILL ZORAIDA MARTELL, CALL BPM ARCHITECT IF NEEDED
[2021-05-15] MEDS ORDERED: sodium polystyrene sulfonate 15gm/60ml oral suspension PO ONE (15:35)
--- NOTE | 2021-05-15 16:05 | NUR ---
SHANIQUE CORNELL CALLED, RE PT SON STILL NOT ARRIVED TO INBOUND SALES CONSULTANT PT, NO ANSWER, MESSAGE LEFT
--- NOTE | 2021-05-15 16:28 | NUR ---
PT INSISTS, SHE HAS A WAY INTO HER SONS HOUSE WHERE SHE IS CURRENTLY RESIDING, PT WANTS TO GO HOME AND ASEKD IS THERE ANYWAY TO HELP HER GET HOME SINCE HER SON IS NOT HERE YET AND NOT ANSWERING HIS PHONE. SHANIQUE CORNELL NOTIFIED, OKAYED TO CALL [employer] AND SEND HER HOME, PT LIVES IN [facility].
--- NOTE | 2021-05-15 17:04 | NUR ---
PT DISCHARGED, WHEELCHAIR TO LOBBY FOR [employer] TO GET HER HOME. PIV REMOVED, DICHARGE ORDERS GIVEN WITH EMPHASIS ON OBTAINING A LOCAL PCP TO FOLLOW UP WITH
== END 2021-05-15 16:53 | disposition home or self-care (01) | DRG 432 ==
LOC: ER 11:27 → SUR 3N 20:37
PROVIDERS: ADMIT Internal Medicine; ATTEND Family Medicine
PROC: 0W9G3ZZ Drainage of Peritoneal Cavity, Percutaneous Approach (ICD-10-PCS; principal; 2021-05-10)
PROC: 30233R1 Transfusion of Nonautologous Platelets into Peripheral Vein, Percutaneous Approach (ICD-10-PCS; 2021-05-13)
PROC: 0W9G3ZZ Drainage of Peritoneal Cavity, Percutaneous Approach (ICD-10-PCS; 2021-05-14)
DX: K74.60 Unspecified cirrhosis of liver (principal); K72.00 Acute and subacute hepatic failure without coma; I50.33 Acute on chronic diastolic (congestive) heart failure; R18.8 Other ascites; I13.0 Hypertensive heart and chronic kidney disease with heart failure and stage 1 through stage 4 chronic kidney disease, or unspecified chronic kidney disease; N18.4 Chronic kidney disease, stage 4 (severe); N17.9 Acute kidney failure, unspecified; Z66 Do not resuscitate; B19.20 Unspecified viral hepatitis C without hepatic coma; D63.8 Anemia in other chronic diseases classified elsewhere; B86 Scabies; D69.59 Other secondary thrombocytopenia; E11.22 Type 2 diabetes mellitus with diabetic chronic kidney disease; J44.9 Chronic obstructive pulmonary disease, unspecified; F12.90 Cannabis use, unspecified, uncomplicated; Z86.14 Personal history of Methicillin resistant Staphylococcus aureus infection; Z88.8 Allergy status to other drugs, medicaments and biological substances; Z79.899 Other long term (current) drug therapy; Z90.49 Acquired absence of other specified parts of digestive tract
CPT/HCPCS: 36415; 36430; 49082; 49083; 71045; 80053; 81003; 82140; 82150; 82945; 83036; 83605; 83615; 83735; 83880; 84157; 84484; 85007; 85008; 85025; 85610; 86885; 86900; 86901; 87040; 87081; 89051; 89060; 93005; 93306; 96360; 97116; 97162; 97530; 99285; G0378; J2270; J2405; J7030; P9035; P9047

== ENCOUNTER 2021-05-28 07:06 | Emergency (ER) | payer MEDICARE, MEDICAID ==
[~2021-05-28] VITALS: Ht 165.1 cm; Wt 72.7 kg
[~2021-05-28 07:06] MED LIST changes: -BIOT5000 PO; -CIPR-260 PO; +CLON0.1T2 PO; -GABA300C PO; -HALO2ORA3 PO; -IPRA3AMP31 NEB; -LACT10SO3 PO; -LORA-269 PO; -MORP100S7 PO; -RIFA200T2 PO; +RIFA550T PO; -SENN-173 PO; -SPIR50TA5 PO
[2021-05-28] MEDS ORDERED: LIDOcaine 1% 30ml preserv. free vial IJ ONE (09:35)
[2021-05-28] MEDS ORDERED: LIDOcaine 1%/PF 5ML 10 MG/ML VIAL IJ ONE (09:50)
[2021-05-28 10:01] LABS: BASOPHILS % (AUTO) 0.3 % (0-1); EOSINOPHILS % (AUTO) 0.4 % (0-6); HEMATOCRIT 22.8 % (35.0-45.0); HEMOGLOBIN 7.2 g/dl (12.0-16.0); LYMPHOCYTES # (AUTO) 0.2 X10'3 (1.1-4.8); LYMPHOCYTES % (AUTO) 4.9 % (21-51); MEAN CORPUSCULAR HEMOGLOBIN 29.9 PG (27.0-31.0); MEAN CORPUSCULAR HGB CONC 31.7 g/dL (33.0-36.5); MEAN CORPUSCULAR VOLUME 94.5 FL (78-98); MEAN PLATELET VOLUME 7.6 FL (7.4-10.4); MONOCYTES # (AUTO) 0.6 X10'3 (0-0.9); MONOCYTES % (AUTO) 12.1 % (2-12); NEUTROPHILS # (AUTO) 3.8 X10'3 (1.8-7.7); NEUTROPHILS % (AUTO) 82.3 % (42-75); PLATELET COUNT 51 X10'3 (140-440); RED BLOOD COUNT 2.41 X10'6 (4.20-5.60); RED CELL DISTRIBUTION WIDTH 18.5 % (11.5-14.5); WHITE BLOOD COUNT 4.6 X10'3 (4.5-11.0)
[2021-05-28 10:10] LABS: APTT 28 SECONDS (22-32)
[2021-05-28 11:41] VITALS: BP 121/58
== END 2021-05-28 11:50 | disposition home or self-care (01) ==
LOC: ER 07:06
DX: R18.8 Other ascites (principal); K74.60 Unspecified cirrhosis of liver; I10 Essential (primary) hypertension; J44.9 Chronic obstructive pulmonary disease, unspecified; E11.9 Type 2 diabetes mellitus without complications; G89.29 Other chronic pain; Z86.14 Personal history of Methicillin resistant Staphylococcus aureus infection; Z86.19 Personal history of other infectious and parasitic diseases; Z90.49 Acquired absence of other specified parts of digestive tract; Z56.0 Unemployment, unspecified; Z88.8 Allergy status to other drugs, medicaments and biological substances; Z79.899 Other long term (current) drug therapy
CPT/HCPCS: 36415; 49083; 82140; 85025; 85610; 85730; 99285

== ENCOUNTER 2021-06-12 04:08 | Inpatient (IN) | payer MEDICARE, MEDICAID ==
[2021-06-12] VITALS (16 sets, daily range): BP systolic 103–157; BP diastolic 36–77
[~2021-06-12] VITALS: Ht 165.1 cm; Wt 85.9 kg
[2021-06-12] MEDS ORDERED: metoclopramide 5 mg/ml inj IV STA (04:31)
[2021-06-12] MEDS ORDERED: cefTRIAXone 1g/NS 100ml IVPB 100 ML IV STA (04:31)
[2021-06-12] MEDS ORDERED: pantoprazole 40MG/NS 100ML BAG 100 ML IV STA (04:31)
[2021-06-12] MEDS ORDERED: octreotide inj. 500 MCG in normal saline 100ml IV soln 100 ML IV ONE (04:35)
--- NOTE | 2021-06-12 04:35 | NUR ---
Dr Padgett at bs
[2021-06-12] MEDS ORDERED: octreotide inj. 500 MCG in normal saline 100ml IV soln 97.5 ML IV ONE (04:40)
--- NOTE | 2021-06-12 04:45 | NUR ---
Pt set up for paracenthesis
--- NOTE | 2021-06-12 04:45 | NUR ---
paracenthesis initiated by Dr Padgett with clear fluid drainage
--- NOTE | 2021-06-12 04:48 | NUR ---
Dr Padgett at bs
--- NOTE | 2021-06-12 06:10 | NUR ---
Report given to oncoming rn
[2021-06-12 06:31] LABS: BASOPHILS % (AUTO) 0.8 % (0-1); EOSINOPHILS # (AUTO) 0.1 X10'3 (0-0.9); EOSINOPHILS % (AUTO) 1.6 % (0-6); LYMPHOCYTES # (AUTO) 0.5 X10'3 (1.1-4.8); LYMPHOCYTES % (AUTO) 8.6 % (21-51); MEAN CORPUSCULAR HEMOGLOBIN 28.5 PG (27.0-31.0); MEAN PLATELET VOLUME 7.8 FL (7.4-10.4); MONOCYTES # (AUTO) 0.5 X10'3 (0-0.9); MONOCYTES % (AUTO) 8.5 % (2-12); NEUTROPHILS # (AUTO) 4.8 X10'3 (1.8-7.7); NEUTROPHILS % (AUTO) 80.5 % (42-75); RED BLOOD COUNT 2.04 X10'6 (4.20-5.60); RED CELL DISTRIBUTION WIDTH 17.2 % (11.5-14.5)
[2021-06-12 06:37] LABS: HEMATOCRIT 18.1 % (35.0-45.0); HEMOGLOBIN 5.8 g/dl (12.0-16.0); PLATELET COUNT 43 X10'3 (140-440)
[2021-06-12 06:47] LABS: APTT 42 SECONDS (22-32)
[2021-06-12 06:48] LABS: ALANINE AMINOTRANSFERASE 25 U/L (12-78); ALBUMIN 2.6 G/DL (3.4-5.0); ALBUMIN/GLOBULIN RATIO 0.6 (1.1-1.5); ALKALINE PHOSPHATASE 120 IU/L (46-116); ANION GAP 13 (8-16); ASPARTATE AMINO TRANSFERASE 37 U/L (10-37); BILIRUBIN,TOTAL 0.6 MG/DL (0.1-1.0); BLOOD UREA NITROGEN 86 MG/DL (7-18); BUN/CREATININE RATIO 34.5 (6.6-38.0); CALCIUM 8.4 MG/DL (8.5-10.1); CHLORIDE 102 MMOL/L (99-107); CREATININE 2.49 MG/DL (0.40-0.90); GLUCOSE 110 MG/DL (70-104); POTASSIUM 5.5 MMOL/L (3.5-5.1); SODIUM 131 MMOL/L (135-145); TOTAL CARBON DIOXIDE 16.3 MMOL/L (24-32); TOTAL PROTEIN 6.8 G/DL (6.4-8.2); eGFR 19 ML/MIN
--- NOTE | 2021-06-12 07:20 | NUR ---
awaiting for blood bank to call.prbc still unavailable.
--- NOTE | 2021-06-12 07:20 | NUR ---
radiology/cxray at bedside.
[2021-06-12] MEDS ORDERED: magnesium Cl slow-release 64mg tablet PO PRN (09:05)
[2021-06-12] MEDS ORDERED: magnesium 4gm in 100ml NS 100 ML IV PRN (09:05)
[2021-06-12] MEDS ORDERED: potassium CL 10mEq/100ml bag 100 ML IV PRN (09:05)
[2021-06-12] MEDS ORDERED: potassium Cl 20 mEq SR tablet PO PRN ×2 (09:05)
[2021-06-12] MEDS ORDERED: acetaminophen 325mg tablet PO PRN ×2 (09:05)
[2021-06-12] MEDS ORDERED: normal saline 1000ml 1,000 ML IV SCH (09:05)
[2021-06-12] MEDS ORDERED: magnesium 2GM in 50ml NS 50 ML IV PRN (09:05)
--- NOTE | 2021-06-12 09:18 | NUR ---
order clarification-telephone order by Dr. Salmon- 2 prbc only.order noted and carried out.will notify blood bank.
--- NOTE | 2021-06-12 09:38 | NUR ---
1st prbc started.
[2021-06-12 09:56] LABS: OCCULT BLOOD STOOL POSITIVE (Neg)
[2021-06-12] MEDS ORDERED: rocuronium 10mg/ml inj IV ONE (10:00)
[2021-06-12] MEDS ORDERED: etomidate 2mg/ml inj. ONE (10:00)
[2021-06-12] MEDS ORDERED: LACT10SO3 PO (10:18)
[2021-06-12] MEDS ORDERED: RIFA200T2 PO (10:18)
[2021-06-12] MEDS ORDERED: MORP15TA PO (10:19)
[2021-06-12] MEDS ORDERED: OMEP20CA15 PO (10:41)
[2021-06-12] MEDS ORDERED: LINE600T11 PO (10:41)
[2021-06-12] MEDS ORDERED: ZOLP5TAB2 PO (10:41)
[2021-06-12] MEDS ORDERED: MULT-1085 PO (10:41)
[2021-06-12] MEDS ORDERED: MELA3TAB41 PO (10:41)
[2021-06-12] MEDS ORDERED: FURO-150 PO (10:41)
[2021-06-12] MEDS ORDERED: OXYC-150 PO (10:41)
--- NOTE | 2021-06-12 10:42 | NUR ---
no bt reaction.we will monitor.
--- NOTE | 2021-06-12 10:46 | NUR ---
SPOKE TO DR. SMITH,PT WILL HAVE UPPER ENDOSCOPY.
[2021-06-12] MEDS ORDERED: pantoprazole 40MG/NS 100ML BAG 100 ML IV SCH (11:00)
[2021-06-12] MEDS: rifaximin 550mg tablet PO SCH ×2 (11:46→21:19)
[2021-06-12] MEDS ORDERED: MIDAZolam 1 MG/ML 5ML VIAL ONE (11:55)
[2021-06-12] MEDS ORDERED: LIDOcaine Viscous 15ml cup ONE (11:55)
[2021-06-12] MEDS ORDERED: fentaNYL/PF 50MCG/1 ML 2ML syringe ONE (11:55)
[2021-06-12] MEDS: morphine 2 MG/ML inj. syringe IV PRN (16:47)
--- NOTE | 2021-06-12 18:40 | NUR ---
Patient in room PCU 3011. I have received report from TED Still and had the opportunity to ask questions and assume patient care. Blood transfusion in progress.
--- NOTE | 2021-06-12 18:57 | NUR ---
Paged Dr. Salmon at this time for the following concern; Marjan Bryan RM 3011 abdomen is more enlarged since pt arrived on unit at 1400
[2021-06-12] MEDS ORDERED: furosemide 20 MG/2 ML vial IV ONE (19:00)
--- NOTE | 2021-06-12 19:20 | NUR ---
Transfusion completed, VSS, Afebrile, no adverse reaction noted. Tubing flushed per protocol. Pt is stable.
[2021-06-12] MEDS: K and/or MAG REPLACEMENT MC SCH (20:00)
[2021-06-12] MEDS ORDERED: docusate sod 100mg capsule PO SCH (20:00)
[2021-06-12] MEDS ORDERED: lactulose 20gm/30ml cup PO SCH (20:00)
[2021-06-12] MEDS: HYDROcodone/acetaminophen 5mg/325mg tablet PO PRN (20:37)
[2021-06-12] MEDS: pantoprazole 40mg Tablet.DR PO SCH (20:37)
[2021-06-12] MEDS: lactulose 20gm/30ml cup PO SCH (20:38)
[2021-06-12] MEDS: ondansetron/PF 4mg/2ml inj IV PRN (22:10)
[2021-06-12 22:29] LABS: BASOPHILS % (AUTO) 0.2 % (0-1); EOSINOPHILS % (AUTO) 0.4 % (0-6); HEMATOCRIT 27.5 % (35.0-45.0); HEMOGLOBIN 9.1 g/dl (12.0-16.0); LYMPHOCYTES # (AUTO) 0.4 X10'3 (1.1-4.8); LYMPHOCYTES % (AUTO) 3.6 % (21-51); MEAN CORPUSCULAR HEMOGLOBIN 28.5 PG (27.0-31.0); MEAN CORPUSCULAR HGB CONC 33.1 g/dL (33.0-36.5); MEAN CORPUSCULAR VOLUME 86.2 FL (78-98); MEAN PLATELET VOLUME 7.4 FL (7.4-10.4); MONOCYTES # (AUTO) 0.7 X10'3 (0-0.9); MONOCYTES % (AUTO) 6.8 % (2-12); NEUTROPHILS # (AUTO) 9.5 X10'3 (1.8-7.7); RED BLOOD COUNT 3.19 X10'6 (4.20-5.60); RED CELL DISTRIBUTION WIDTH 19.6 % (11.5-14.5); WHITE BLOOD COUNT 10.7 X10'3 (4.5-11.0)
[2021-06-12 22:34] LABS: PLATELET COUNT 49 X10'3 (140-440)
--- NOTE | 2021-06-12 23:12 | NUR ---
PAGER ID: [phone] MESSAGE, sent to Dr. Mcneal-Platelet -49, previous platelet 43, CBC post transfusion-H &H 9.04/12..
[2021-06-12 23:17] LABS: ANISOCYTOSIS 2+; ELLIPTOCYTES FEW; PLATELET ESTIMATE DECREASED; POLYCHROMASIA FEW
--- NOTE | 2021-06-13 00:07 | NUR ---
Pt woke up, requesting her sleeping, states, she can't go back to sleep, she takes Ambien 5mg and Melatonin 3mg Qhs at home, they are on hold, Dr. Mcneal informed, TO received to resume Ambien and Melotonin. Aware of Critical Platelet of 45, no new order.
[2021-06-13] MEDS: HYDROcodone/acetaminophen 5mg/325mg tablet PO PRN ×3 (00:40→19:51)
[2021-06-13] MEDS: zolpidem 5mg tablet PO PRN (00:41)
[2021-06-13] MEDS: morphine 2 MG/ML inj. syringe IV PRN ×3 (01:17→18:04)
[2021-06-13 02:00] VITALS: BP 130/67
[2021-06-13 06:00] VITALS: BP 135/65
[2021-06-13 07:52] LABS: CALCIUM 8.6 MG/DL (8.5-10.1)
[2021-06-13] MEDS: K and/or MAG REPLACEMENT MC SCH (08:00)
[2021-06-13 08:19] LABS: ALANINE AMINOTRANSFERASE 30 U/L (12-78); ALBUMIN 2.8 G/DL (3.4-5.0); ALBUMIN/GLOBULIN RATIO 0.6 (1.1-1.5); ALKALINE PHOSPHATASE 131 IU/L (46-116); ASPARTATE AMINO TRANSFERASE 64 U/L (10-37); BILIRUBIN,TOTAL 2.1 MG/DL (0.1-1.0); CHLORIDE 103 MMOL/L (99-107); GLUCOSE 131 MG/DL (70-104); SODIUM 132 MMOL/L (135-145); TOTAL PROTEIN 7.5 G/DL (6.4-8.2)
[2021-06-13 08:21] LABS: BASOPHILS % (AUTO) 0.2 % (0-1); EOSINOPHILS # (AUTO) 0.2 X10'3 (0-0.9); EOSINOPHILS % (AUTO) 2.1 % (0-6); HEMATOCRIT 26.8 % (35.0-45.0); HEMOGLOBIN 8.7 g/dl (12.0-16.0); LYMPHOCYTES # (AUTO) 0.5 X10'3 (1.1-4.8); LYMPHOCYTES % (AUTO) 6.5 % (21-51); MEAN CORPUSCULAR HEMOGLOBIN 28.3 PG (27.0-31.0); MEAN CORPUSCULAR HGB CONC 32.7 g/dL (33.0-36.5); MEAN CORPUSCULAR VOLUME 86.4 FL (78-98); MEAN PLATELET VOLUME 8.2 FL (7.4-10.4); MONOCYTES # (AUTO) 0.5 X10'3 (0-0.9); MONOCYTES % (AUTO) 6.6 % (2-12); NEUTROPHILS # (AUTO) 6.7 X10'3 (1.8-7.7); NEUTROPHILS % (AUTO) 84.6 % (42-75); RED CELL DISTRIBUTION WIDTH 18.8 % (11.5-14.5); WHITE BLOOD COUNT 7.9 X10'3 (4.5-11.0)
[2021-06-13 08:27] LABS: PLATELET COUNT 39 X10'3 (140-440)
[2021-06-13] MEDS ORDERED: spironolactone 25 MG tablet PO SCH (08:30)
[2021-06-13 08:32] LABS: ANION GAP 21 (8-16); BLOOD UREA NITROGEN 93 MG/DL (7-18); CREATININE 2.45 MG/DL (0.40-0.90); eGFR 19 ML/MIN
[2021-06-13 08:37] LABS: POTASSIUM 6.5 MMOL/L (3.5-5.1); TOTAL CARBON DIOXIDE 8.1 MMOL/L (24-32)
--- NOTE | 2021-06-13 08:46 | NUR ---
Page Sent PAGER ID: [phone] MESSAGE: [phone]. Marjan Bryan. Multiple critical labs plt 36, K 6.5, and co2 8.1. please adv [phone]
[2021-06-13] MEDS: rifaximin 550mg tablet PO SCH ×2 (08:52→19:50)
[2021-06-13] MEDS: pantoprazole 40mg Tablet.DR PO SCH ×2 (08:52→19:50)
[2021-06-13] MEDS: levoTHYROXINE 25mcg tablet PO SCH (08:52)
[2021-06-13] MEDS: lactulose 20gm/30ml cup PO SCH ×2 (08:53→19:52)
[2021-06-13] MEDS ORDERED: insulin regular, human 10 units/0.1 ml syringe IV ONE (09:25)
[2021-06-13] MEDS ORDERED: albuterol 2.5 MG/3 ML nebule NEB ONE (09:25)
[2021-06-13] MEDS ORDERED: calcium gluconate inj. 1 GM in normal saline 100ml IV soln 100 ML IV ONE (09:25)
[2021-06-13] MEDS ORDERED: dextrose 50%-water 50ml dispensing syringe IV ONE (09:25)
[2021-06-13] MEDS ORDERED: CALCIUM GLUC 1gm/50ml NACL,iso 100 ML IV ONE (09:47)
[2021-06-13] MEDS: sodium bicarbonate 650mg tablet PO SCH ×2 (12:43→19:50)
[2021-06-13] MEDS: VANCOMYCIN 750MG IV in NS 250 ML IV SCH (14:00)
[2021-06-13 16:02] LABS: BASOPHILS % (AUTO) 0.4 % (0-1); EOSINOPHILS # (AUTO) 0.1 X10'3 (0-0.9); HEMATOCRIT 27.4 % (35.0-45.0); LYMPHOCYTES # (AUTO) 0.4 X10'3 (1.1-4.8); MEAN CORPUSCULAR HEMOGLOBIN 28.3 PG (27.0-31.0); MEAN CORPUSCULAR HGB CONC 32.9 g/dL (33.0-36.5); MEAN CORPUSCULAR VOLUME 86.1 FL (78-98); MEAN PLATELET VOLUME 7.8 FL (7.4-10.4); MONOCYTES # (AUTO) 0.4 X10'3 (0-0.9); MONOCYTES % (AUTO) 5.5 % (2-12); NEUTROPHILS # (AUTO) 6.4 X10'3 (1.8-7.7); NEUTROPHILS % (AUTO) 86.1 % (42-75); RED BLOOD COUNT 3.19 X10'6 (4.20-5.60); RED CELL DISTRIBUTION WIDTH 19.2 % (11.5-14.5); WHITE BLOOD COUNT 7.4 X10'3 (4.5-11.0)
[2021-06-13 16:08] LABS: PLATELET COUNT 45 X10'3 (140-440)
[2021-06-13] MEDS: piperacillin/tazo 3.375gm/50ml 50 ML IV SCH (16:45)
[2021-06-13 18:00] VITALS: BP 150/74
--- NOTE | 2021-06-13 18:15 | NUR ---
Page Sent PAGER ID: [phone] MESSAGE: [phone]. Marjan Bryan. Patient would like to have regular ADA diet, not Clear liquids. [phone]
[2021-06-13] MEDS: Melatonin 3mg tablet PO SCH (20:09)
[2021-06-13 22:00] VITALS: BP 157/76
[2021-06-14] VITALS (7 sets, daily range): BP systolic 134–150; BP diastolic 63–76
[2021-06-14] MEDS: piperacillin/tazo 3.375gm/50ml 50 ML IV SCH ×4 (00:24→22:18)
[2021-06-14] MEDS: morphine 2 MG/ML inj. syringe IV PRN ×4 (02:37→22:11)
[2021-06-14] MEDS: HYDROcodone/acetaminophen 5mg/325mg tablet PO PRN ×2 (05:56→14:14)
--- NOTE | 2021-06-14 06:05 | NUR ---
Patient in room PCU 3011. I have received report from Shanta JEAN and had the opportunity to ask questions and assume patient care.
[2021-06-14] MEDS: levoTHYROXINE 25mcg tablet PO SCH (08:10)
[2021-06-14] MEDS: pantoprazole 40mg Tablet.DR PO SCH ×2 (08:10→21:54)
[2021-06-14] MEDS: sodium bicarbonate 650mg tablet PO SCH ×2 (08:10→21:54)
[2021-06-14] MEDS: rifaximin 550mg tablet PO SCH ×2 (08:10→21:55)
[2021-06-14] MEDS: lactulose 20gm/30ml cup PO SCH ×2 (08:11→22:06)
[2021-06-14 08:54] LABS: BASOPHILS % (AUTO) 0.5 % (0-1); EOSINOPHILS # (AUTO) 0.3 X10'3 (0-0.9); EOSINOPHILS % (AUTO) 3.4 % (0-6); HEMATOCRIT 23.1 % (35.0-45.0); HEMOGLOBIN 7.7 g/dl (12.0-16.0); LYMPHOCYTES # (AUTO) 0.5 X10'3 (1.1-4.8); LYMPHOCYTES % (AUTO) 5.3 % (21-51); MEAN CORPUSCULAR HEMOGLOBIN 28.7 PG (27.0-31.0); MEAN CORPUSCULAR HGB CONC 33.4 g/dL (33.0-36.5); MEAN CORPUSCULAR VOLUME 85.8 FL (78-98); MONOCYTES # (AUTO) 0.6 X10'3 (0-0.9); MONOCYTES % (AUTO) 7.2 % (2-12); NEUTROPHILS # (AUTO) 7.1 X10'3 (1.8-7.7); NEUTROPHILS % (AUTO) 83.6 % (42-75); RED CELL DISTRIBUTION WIDTH 18.8 % (11.5-14.5); WHITE BLOOD COUNT 8.6 X10'3 (4.5-11.0)
[2021-06-14 09:00] LABS: PLATELET COUNT 34 X10'3 (140-440)
[2021-06-14] MEDS: ondansetron/PF 4mg/2ml inj IV PRN ×3 (09:35→22:10)
[2021-06-14 09:39] LABS: PLATELET ESTIMATE DECREASED
[2021-06-14 09:40] LABS: ANISOCYTOSIS 2+; ELLIPTOCYTES FEW; MICROCYTOSIS 1+
[2021-06-14 09:44] LABS: BASOPHILS % (AUTO) 0.4 % (0-1); EOSINOPHILS # (AUTO) 0.3 X10'3 (0-0.9); EOSINOPHILS % (AUTO) 3.8 % (0-6); HEMATOCRIT 25.2 % (35.0-45.0); HEMOGLOBIN 8.1 g/dl (12.0-16.0); LYMPHOCYTES # (AUTO) 0.4 X10'3 (1.1-4.8); LYMPHOCYTES % (AUTO) 4.9 % (21-51); MEAN CORPUSCULAR HGB CONC 31.9 g/dL (33.0-36.5); MEAN CORPUSCULAR VOLUME 87.6 FL (78-98); MEAN PLATELET VOLUME 7.2 FL (7.4-10.4); MONOCYTES # (AUTO) 0.6 X10'3 (0-0.9); MONOCYTES % (AUTO) 7.2 % (2-12); NEUTROPHILS # (AUTO) 6.9 X10'3 (1.8-7.7); NEUTROPHILS % (AUTO) 83.7 % (42-75); RED BLOOD COUNT 2.88 X10'6 (4.20-5.60); RED CELL DISTRIBUTION WIDTH 19.3 % (11.5-14.5); WHITE BLOOD COUNT 8.3 X10'3 (4.5-11.0)
[2021-06-14 09:48] LABS: PLATELET COUNT 37 X10'3 (140-440)
[2021-06-14 10:01] LABS: ALANINE AMINOTRANSFERASE 29 U/L (12-78); ALBUMIN 2.8 G/DL (3.4-5.0); ALBUMIN/GLOBULIN RATIO 0.6 (1.1-1.5); ALKALINE PHOSPHATASE 134 IU/L (46-116); ANION GAP 16 (8-16); ASPARTATE AMINO TRANSFERASE 40 U/L (10-37); BILIRUBIN,TOTAL 1.4 MG/DL (0.1-1.0); BLOOD UREA NITROGEN 93 MG/DL (7-18); BUN/CREATININE RATIO 35.2 (6.6-38.0); CALCIUM 8.6 MG/DL (8.5-10.1); CHLORIDE 98 MMOL/L (99-107); CREATININE 2.64 MG/DL (0.40-0.90); POTASSIUM 5.2 MMOL/L (3.5-5.1); SODIUM 128 MMOL/L (135-145); TOTAL PROTEIN 7.2 G/DL (6.4-8.2); eGFR 18 ML/MIN
[2021-06-14 10:19] LABS: GLUCOSE 148 MG/DL (70-104)
[2021-06-14 10:24] LABS: TOTAL CARBON DIOXIDE 14.1 MMOL/L (24-32)
--- NOTE | 2021-06-14 14:15 | NUR ---
Paged Dr. Salmon regarding patients tongue which is red and swollen with blisters. PAGER ID: [phone] MESSAGE: [phone], Irvin Phillip . Patient says their tongue hurts really bad. It is red and somewhat swollen and has blisters on it. Berkley Corbin [phone].
[2021-06-14] MEDS ORDERED: benzocaine (Anbesol) 12ml bottle MM PRN (15:10)
[2021-06-14] MEDS: VANCOMYCIN 750MG IV in NS 250 ML IV SCH (15:16)
[2021-06-14] MEDS ORDERED: LIDOcaine 2% 10ml TOPICAL JELLY (Urojet) TP ONE (18:00)
--- NOTE | 2021-06-14 18:26 | NUR ---
Problems reprioritized. Patient report given, questions answered & plan of care reviewed with Shanta JEAN.
[2021-06-14] MEDS: Melatonin 3mg tablet PO SCH (21:55)
[2021-06-14] MEDS: zolpidem 5mg tablet PO PRN (21:55)
[2021-06-14] MEDS: albumin (human) 25% 100 ML IV solution IV SCH (22:02)
[2021-06-14] MEDS: diatr meglu/diatrizoate 30ml oral sol.-(3 dose) bottle PO SCH (22:06)
[2021-06-15] VITALS (9 sets, daily range): BP systolic 111–146; BP diastolic 48–86
[2021-06-15] MEDS: HYDROcodone/acetaminophen 5mg/325mg tablet PO PRN ×3 (01:08→17:32)
--- NOTE | 2021-06-15 06:50 | NUR ---
Patient in room PCU 3011. I have received report from Shanta JEAN and had the opportunity to ask questions and assume patient care.
--- NOTE | 2021-06-15 07:37 | NUR ---
Patient in room PCU 3011. I have received report from Kristan JEAN and had the opportunity to ask questions and assume patient care. Lima JEAN previously resource RN and pulled into staffing due to Sarahi JEAN getting hurt
[2021-06-15] MEDS: diatr meglu/diatrizoate 30ml oral sol.-(3 dose) bottle PO SCH ×2 (07:55→21:00)
[2021-06-15] MEDS: piperacillin/tazo 3.375gm/50ml 50 ML IV SCH ×2 (07:56→20:03)
[2021-06-15] MEDS: albumin (human) 25% 100 ML IV solution IV SCH ×2 (07:57→19:54)
[2021-06-15] MEDS: levoTHYROXINE 25mcg tablet PO SCH (07:57)
[2021-06-15] MEDS: pantoprazole 40mg Tablet.DR PO SCH ×2 (07:57→19:50)
[2021-06-15] MEDS: sodium bicarbonate 650mg tablet PO SCH ×2 (07:57→19:50)
[2021-06-15] MEDS: lactulose 20gm/30ml cup PO SCH ×2 (07:57→19:59)
[2021-06-15] MEDS: rifaximin 550mg tablet PO SCH ×2 (08:02→19:48)
[2021-06-15] MEDS: morphine 2 MG/ML inj. syringe IV PRN ×3 (08:11→22:51)
[2021-06-15] MEDS: ondansetron/PF 4mg/2ml inj IV PRN ×2 (08:22→20:01)
[2021-06-15 09:08] LABS: ALANINE AMINOTRANSFERASE 21 U/L (12-78); ALBUMIN 3.1 G/DL (3.4-5.0); ALBUMIN/GLOBULIN RATIO 0.8 (1.1-1.5); ALKALINE PHOSPHATASE 113 IU/L (46-116); ANION GAP 12 (8-16); ASPARTATE AMINO TRANSFERASE 33 U/L (10-37); BLOOD UREA NITROGEN 93 MG/DL (7-18); BUN/CREATININE RATIO 34.4 (6.6-38.0); CALCIUM 8.2 MG/DL (8.5-10.1); CHLORIDE 103 MMOL/L (99-107); GLUCOSE 127 MG/DL (70-104); POTASSIUM 5.2 MMOL/L (3.5-5.1); SODIUM 130 MMOL/L (135-145); TOTAL CARBON DIOXIDE 15.5 MMOL/L (24-32); eGFR 17 ML/MIN
[2021-06-15] MEDS: sodium bicarbonate (8.4%) inj. 150 MEQ in dextrose 5%-water 1,000 ML IV SCH ×2 (09:59→20:35)
[2021-06-15] MEDS ORDERED: LIDOcaine 1% (10mg/ml)w/preservative inj. 20ml MDV ONE (10:18)
[2021-06-15 10:28] LABS: TOTAL PROTEIN,URINE RANDOM 24.7 MG/DL
[2021-06-15 10:29] LABS: CLARITY,URINE SLIGHTLY CLOUDY (Clear); COLOR,URINE YELLOW (Yellow); GLUCOSE, URINE NEGATIVE (Neg); KETONES,URINE NEGATIVE (Neg); LEUKOCYTE ESTERASE ,URINE NEGATIVE (Neg); NITRITES, URINE NEGATIVE (Neg); OCCULT BLOOD,URINE MODERATE (Neg); PROTEIN,URINE NEGATIVE (Neg); UROBILINOGEN,URINE 0.2 E.U/dL (0.2-1.0)
[2021-06-15 10:30] LABS: SODIUM,URINE RANDOM < 15 MEQ/L
[2021-06-15 10:32] LABS: UA COLLECTION TYPE FOLEY CATH
[2021-06-15 10:36] LABS: BACTERIA,URINE FEW /HPF (Neg); RBC,URINE 20-50 /HPF (0-2); RENAL CELLS, URINE FEW /HPF; SQUAMOUS EPITHELIAL CELL,UR NONE SEEN /LPF (FEW)
[2021-06-15 10:37] LABS: HYALINE CASTS 0-3 /LPF (NEGATIVE)
[2021-06-15 10:38] LABS: MUCUS STRANDS FEW /LPF (Neg); TRANSITIONAL EPI CELLS,URINE FEW /HPF; YEAST FEW /HPF (NEGATIVE)
[2021-06-15 11:08] LABS: UA EOSINOPHILS NO EOS /HPF
[2021-06-15] MEDS ORDERED: albumin (human) 25% 100 ML IV solution IV ONE (11:45)
[2021-06-15 12:13] LABS: GLUCOSE,BODY FLUID 134 MG/DL; LDH,BODY FLUID 63 U/L
[2021-06-15 12:25] LABS: TOTAL PROTEIN,BODY FLUID < 2.0 G/DL
--- NOTE | 2021-06-15 13:10 | NUR ---
Page from Verbal order from Dr. Byers to place order for Buspar 15mg q 8hrs due to severe anxiety; MD Byers also made aware pt refusing lab draws after education of importance. Lima [facility]
[2021-06-15 13:11] LABS: EOSINOPHILS,BODY FLUID 6 %; LYMPHOCYTES,BODY FLUID 16 %; MONOCYTES,BODY FLUID 56 %; NEUTROPHILS,BODY FLUID 22 %
[2021-06-15 13:12] LABS: BF MESOTHELIAL CELLS FEW; BF RBC COUNT 190 /CU MM; BF WBC COUNT 60 /CU MM (0-1000); BFAPPEAR HAZY; BFCOLOR STRAW; BFVOLUME 48 ML
[2021-06-15] MEDS: busPIRone 15mg tablet PO PRN ×2 (13:39→21:28)
[2021-06-15] MEDS: VANCOMYCIN 750MG IV in NS 250 ML IV SCH (13:39)
--- NOTE | 2021-06-15 17:57 | NUR ---
Page to MD Dr. Byers pt in room 1835N Marjan Bryan was wondering if her diet can be advanced. Her CT was complete. [facility]
--- NOTE | 2021-06-15 18:56 | NUR ---
Problems reprioritized. Patient report given, questions answered & plan of care reviewed with ORQUIDEA JEAN.
[2021-06-15 19:20] LABS: BASOPHILS % (AUTO) 0.5 % (0-1); EOSINOPHILS # (AUTO) 0.1 X10'3 (0-0.9); EOSINOPHILS % (AUTO) 2.4 % (0-6); LYMPHOCYTES # (AUTO) 0.2 X10'3 (1.1-4.8); LYMPHOCYTES % (AUTO) 5.8 % (21-51); MEAN CORPUSCULAR HEMOGLOBIN 28.6 PG (27.0-31.0); MEAN CORPUSCULAR HGB CONC 33.3 g/dL (33.0-36.5); MEAN CORPUSCULAR VOLUME 85.8 FL (78-98); MEAN PLATELET VOLUME 7.5 FL (7.4-10.4); MONOCYTES # (AUTO) 0.3 X10'3 (0-0.9); MONOCYTES % (AUTO) 8.7 % (2-12); NEUTROPHILS # (AUTO) 2.7 X10'3 (1.8-7.7); NEUTROPHILS % (AUTO) 82.6 % (42-75); RED BLOOD COUNT 2.24 X10'6 (4.20-5.60); RED CELL DISTRIBUTION WIDTH 18.5 % (11.5-14.5); WHITE BLOOD COUNT 3.2 X10'3 (4.5-11.0)
[2021-06-15 19:50] LABS: HEMATOCRIT 19.2 % (35.0-45.0); HEMOGLOBIN 6.4 g/dl (12.0-16.0)
[2021-06-15 19:51] LABS: PLATELET COUNT 13 X10'3 (140-440)
[2021-06-15] MEDS: Melatonin 3mg tablet PO SCH (21:28)
[2021-06-15] MEDS: zolpidem 5mg tablet PO PRN (21:28)
[2021-06-16] VITALS (20 sets, daily range): BP systolic 117–152; BP diastolic 46–97
--- NOTE | 2021-06-16 02:02 | NUR ---
small nickel size skin tear on the right forearm so I applied an oppsite to the tear. It appears that this is a new wound, I notified Nandini hutchins's nurse of this.
[2021-06-16] MEDS: HYDROcodone/acetaminophen 5mg/325mg tablet PO PRN ×3 (02:09→18:42)
[2021-06-16] MEDS: ondansetron/PF 4mg/2ml inj IV PRN ×3 (05:10→20:30)
[2021-06-16] MEDS: morphine 2 MG/ML inj. syringe IV PRN ×4 (05:15→20:30)
--- NOTE | 2021-06-16 06:31 | NUR ---
Problems reprioritized. Patient report given, questions answered & plan of care reviewed with Cristino JEAN.
[2021-06-16 08:10] LABS: ALANINE AMINOTRANSFERASE 25 U/L (12-78); ALBUMIN 3.7 G/DL (3.4-5.0); ALBUMIN/GLOBULIN RATIO 1.2 (1.1-1.5); ALKALINE PHOSPHATASE 119 IU/L (46-116); ANION GAP 18 (8-16); ASPARTATE AMINO TRANSFERASE 31 U/L (10-37); BILIRUBIN,TOTAL 2.3 MG/DL (0.1-1.0); BLOOD UREA NITROGEN 73 MG/DL (7-18); BUN/CREATININE RATIO 30.8 (6.6-38.0); CALCIUM 8.3 MG/DL (8.5-10.1); CHLORIDE 102 MMOL/L (99-107); CREATININE 2.37 MG/DL (0.40-0.90); GLUCOSE 175 MG/DL (70-104); POTASSIUM 4.4 MMOL/L (3.5-5.1); SODIUM 134 MMOL/L (135-145); TOTAL PROTEIN 6.9 G/DL (6.4-8.2); eGFR 20 ML/MIN
[2021-06-16 08:26] LABS: TOTAL CARBON DIOXIDE 14.1 MMOL/L (24-32)
[2021-06-16] MEDS: sodium bicarbonate (8.4%) inj. 150 MEQ in dextrose 5%-water 1,000 ML IV SCH ×2 (09:11→20:13)
[2021-06-16] MEDS: albumin (human) 25% 100 ML IV solution IV SCH ×2 (09:13→20:02)
[2021-06-16] MEDS: sodium bicarbonate 650mg tablet PO SCH ×2 (09:17→20:12)
[2021-06-16] MEDS: levoTHYROXINE 25mcg tablet PO SCH (09:17)
[2021-06-16] MEDS: rifaximin 550mg tablet PO SCH ×2 (09:17→20:12)
[2021-06-16] MEDS: busPIRone 15mg tablet PO PRN (09:17)
[2021-06-16] MEDS: pantoprazole 40mg Tablet.DR PO SCH ×2 (09:17→20:12)
[2021-06-16] MEDS: lactulose 20gm/30ml cup PO SCH ×2 (09:17→20:12)
[2021-06-16] MEDS: piperacillin/tazo 3.375gm/50ml 50 ML IV SCH ×2 (09:21→20:13)
[2021-06-16 10:32] LABS: MEAN CORPUSCULAR HGB CONC 33.3 g/dL (33.0-36.5); MEAN CORPUSCULAR VOLUME 87.1 FL (78-98); MEAN PLATELET VOLUME 8.1 FL (7.4-10.4); RED BLOOD COUNT 2.76 X10'6 (4.20-5.60); RED CELL DISTRIBUTION WIDTH 16.5 % (11.5-14.5); WHITE BLOOD COUNT 4.1 X10'3 (4.5-11.0)
[2021-06-16 10:41] LABS: PLATELET COUNT 12 X10'3 (140-440)
[2021-06-16] MEDS ORDERED: VANCOMYCIN LEVEL IV ONE (13:30)
[2021-06-16 14:34] LABS: HEMATOCRIT 26.7 % (35.0-45.0); HEMOGLOBIN 8.9 g/dl (12.0-16.0); MEAN CORPUSCULAR HGB CONC 33.4 g/dL (33.0-36.5); MEAN CORPUSCULAR VOLUME 86.7 FL (78-98); MEAN PLATELET VOLUME 8.2 FL (7.4-10.4); RED BLOOD COUNT 3.08 X10'6 (4.20-5.60); RED CELL DISTRIBUTION WIDTH 16.4 % (11.5-14.5); WHITE BLOOD COUNT 3.5 X10'3 (4.5-11.0)
[2021-06-16 14:43] LABS: PLATELET COUNT 11 X10'3 (140-440)
[2021-06-16] MEDS ORDERED: vancomycin/NS 1 GM ADD-VANTAGE 250 ML IV SCH (16:00)
--- NOTE | 2021-06-16 18:54 | NUR ---
Patient in room PCU 3013. I have received report from Cristino JEAN and had the opportunity to ask questions and assume patient care.
[2021-06-16] MEDS ORDERED: metoprolol tartrate 1mg/ml inj IV ONE (21:20)
[2021-06-16] MEDS ORDERED: metoprolol tartrate 25mg tablet PO ONE (21:20)
[2021-06-16] MEDS: Melatonin 3mg tablet PO SCH (21:49)
[2021-06-16] MEDS: zolpidem 5mg tablet PO PRN (21:50)
[2021-06-17] VITALS (29 sets, daily range): BP systolic 87–138; BP diastolic 42–88
[2021-06-17] MEDS: morphine 2 MG/ML inj. syringe IV PRN ×4 (00:34→19:22)
[2021-06-17] MEDS ORDERED: metoprolol tartrate 12.5mg (1/2 tablet) PO ONE (04:35)
--- NOTE | 2021-06-17 04:38 | NUR ---
06/16/21 AT 2200:PATIENT IN AFIB, HR IN 160's AND A 10 BEAT RUN VTACH. RC'D ORDERS TO PUSH METOPROLOL IV. SHORTLY AFTER PATIENT RC'D THIS SHE CONVERTED BACK INTO SINUS RHYTHM. NOTIFIED EARLIER PATIENT HAD GONE BACK INTO AFIB BUT WAS IN THE 130'S AND NOT SUSTAINING, HAVE BEEN MONITORING AND HAS NOW GOTTEN UP INTO 146 AND STAYING IN THAT RANGE. RC'D ORDERS FROM DR. WYATT FOR METOPROLOL 12.5 PO ONE TIME DOSE. WILL ADMINISTER WHEN RX HAS MADE MEDICATION AVAILABLE. PATIENT IS NOT COMPLAINING OF ANY DISCOMFORT AT THIS TIME.
--- NOTE | 2021-06-17 06:30 | NUR ---
Patient in room PCU 3013. I have received report from TED SWAN, and had the opportunity to ask questions and assume patient care.
--- NOTE | 2021-06-17 06:35 | NUR ---
Problems reprioritized. Patient report given, questions answered & plan of care reviewed with RICHIE JEAN.
[2021-06-17 08:00] LABS: ALANINE AMINOTRANSFERASE 20 U/L (12-78); ALBUMIN 4.2 G/DL (3.4-5.0); ALBUMIN/GLOBULIN RATIO 1.6 (1.1-1.5); ALKALINE PHOSPHATASE 88 IU/L (46-116); ANION GAP 14 (8-16); ASPARTATE AMINO TRANSFERASE 26 U/L (10-37); BLOOD UREA NITROGEN 70 MG/DL (7-18); BUN/CREATININE RATIO 30.6 (6.6-38.0); CALCIUM 8.2 MG/DL (8.5-10.1); CHLORIDE 103 MMOL/L (99-107); CREATININE 2.29 MG/DL (0.40-0.90); GLUCOSE 148 MG/DL (70-104); SODIUM 137 MMOL/L (135-145); TOTAL CARBON DIOXIDE 20.3 MMOL/L (24-32); TOTAL PROTEIN 6.8 G/DL (6.4-8.2); eGFR 21 ML/MIN
[2021-06-17 08:08] LABS: BASOPHILS % (AUTO) 0.3 % (0-1); EOSINOPHILS # (AUTO) 0.1 X10'3 (0-0.9); EOSINOPHILS % (AUTO) 3.7 % (0-6); LYMPHOCYTES # (AUTO) 0.2 X10'3 (1.1-4.8); LYMPHOCYTES % (AUTO) 8.2 % (21-51); MEAN CORPUSCULAR HEMOGLOBIN 28.8 PG (27.0-31.0); MEAN CORPUSCULAR HGB CONC 33.4 g/dL (33.0-36.5); MEAN PLATELET VOLUME 11.2 FL (7.4-10.4); MONOCYTES # (AUTO) 0.6 X10'3 (0-0.9); MONOCYTES % (AUTO) 22.2 % (2-12); NEUTROPHILS # (AUTO) 1.8 X10'3 (1.8-7.7); NEUTROPHILS % (AUTO) 65.6 % (42-75); RED BLOOD COUNT 2.27 X10'6 (4.20-5.60); RED CELL DISTRIBUTION WIDTH 16.5 % (11.5-14.5); WHITE BLOOD COUNT 2.8 X10'3 (4.5-11.0)
[2021-06-17 08:10] LABS: HEMATOCRIT 19.5 % (35.0-45.0); HEMOGLOBIN 6.5 g/dl (12.0-16.0)
[2021-06-17 08:13] LABS: PLATELET COUNT 5 X10'3 (140-440)
--- NOTE | 2021-06-17 08:23 | NUR ---
PAGE SENT PAGER ID: [phone] MESSAGE: [id number], FINA ARCHER, CRITICAL LABS: HGL 6.5, HCT 19.5, PLT 5. THANK YOU, RICHIE Lakhani [phone].
[2021-06-17] MEDS: albumin (human) 25% 100 ML IV solution IV SCH ×2 (08:40→19:56)
--- NOTE | 2021-06-17 08:41 | NUR ---
Initial: Pt admitted w/ severe anemia, GI bleed, cirrhosis, and CKD IV per EMR. Currently on Renal diet since 06/15 w/ avg intake 53% x 5 meals, previously on Clears w/ 25-50% intake. Overall partially meeting needs. Pt could benefit from Ensure Enlive once daily to help meet nutrient needs. Also recommend liberalizing to Regular diet at this time. Per letterpress setter pt's tongue has blisters on it, which may be impacting PO. Pt also had paracentesis 06/15 w/ 9.6L out. LBM 06/16 receiving routine lactulose. Will continue to monitor. Recs 1. Liberalize to Regular diet if MD agreeable 2. Ensure Enlive once Daily; pending MD verification 3. Bowel care per rx 4. Weekly wts Addendum: 06/17/21 at [address] Amended: Links added.
[2021-06-17] MEDS: sodium bicarbonate (8.4%) inj. 150 MEQ in dextrose 5%-water 1,000 ML IV SCH ×2 (08:43→17:51)
[2021-06-17] MEDS: levoTHYROXINE 25mcg tablet PO SCH (08:52)
[2021-06-17] MEDS: sodium bicarbonate 650mg tablet PO SCH ×2 (08:52→20:27)
[2021-06-17] MEDS: pantoprazole 40mg Tablet.DR PO SCH ×2 (08:52→20:27)
[2021-06-17] MEDS: lactulose 20gm/30ml cup PO SCH ×2 (08:55→20:26)
[2021-06-17 10:39] LABS: TOTAL CELLS COUNTED 100
[2021-06-17 10:40] LABS: ANISOCYTOSIS 1+; PLATELET ESTIMATE DECREASED
[2021-06-17 10:41] LABS: ELLIPTOCYTES FEW; TEAR DROP CELLS FEW
[2021-06-17 11:30] LABS: PLATELET COUNT 22 X10'3 (140-440)
[2021-06-17 11:54] LABS: APTT 25 SECONDS (22-32); D-DIMER 12.41 MG/L FEU (0-0.50)
--- NOTE | 2021-06-17 12:01 | NUR ---
PAGE SENT PAGER ID: [phone] MESSAGE: [id number], FINA ARCHER, CRITICAL LABS: PLT 22, HGL 6.9, HCT 20.7. THANK YOU , RICHIE
--- NOTE | 2021-06-17 14:39 | NUR ---
Problems reprioritized. Patient report given, questions answered & plan of care reviewed with TED SOTO.
[2021-06-17] MEDS: HYDROcodone/acetaminophen 5mg/325mg tablet PO PRN ×2 (15:13→23:10)
[2021-06-17] MEDS: lactose-reduced food (Ensure Enlive) - 237ml bottle PO SCH (15:18)
[2021-06-17] MEDS ORDERED: rifaximin 550mg tablet PO ONE (15:20)
--- NOTE | 2021-06-17 15:25 | NUR ---
Patient to room 2037 via bed and x2 staff. Patient VSS. BLL. Call light in reach. Picture of buttock taken due to open area. Patient Rifaximin and Zosyn not given in PCU at 0800. Called pharmacy to retime both medications so that a dose can be given now.
[2021-06-17 16:45] LABS: HEMOGLOBIN 7.2 g/dl (12.0-16.0); MEAN CORPUSCULAR HEMOGLOBIN 28.9 PG (27.0-31.0); MEAN CORPUSCULAR HGB CONC 33.2 g/dL (33.0-36.5); MEAN CORPUSCULAR VOLUME 86.8 FL (78-98); MEAN PLATELET VOLUME 8.5 FL (7.4-10.4); RED BLOOD COUNT 2.49 X10'6 (4.20-5.60); RED CELL DISTRIBUTION WIDTH 16.3 % (11.5-14.5); WHITE BLOOD COUNT 3.3 X10'3 (4.5-11.0)
[2021-06-17] MEDS: piperacillin/tazo 3.375gm/50ml 50 ML IV SCH (16:49)
[2021-06-17 16:52] LABS: HEMATOCRIT 21.6 % (35.0-45.0); PLATELET COUNT 9 X10'3 (140-440)
--- NOTE | 2021-06-17 18:23 | NUR ---
Patient in room ICU 2038. I have received report from TED Danielle and had the opportunity to ask questions and assume patient care.
[2021-06-17] MEDS: Melatonin 3mg tablet PO SCH (20:27)
[2021-06-17] MEDS: zolpidem 5mg tablet PO PRN (20:33)
[2021-06-17 23:13] LABS: HEMOGLOBIN 7.3 g/dl (12.0-16.0); MEAN CORPUSCULAR HGB CONC 34.1 g/dL (33.0-36.5); MEAN CORPUSCULAR VOLUME 84.9 FL (78-98); MEAN PLATELET VOLUME 7.9 FL (7.4-10.4); RED BLOOD COUNT 2.52 X10'6 (4.20-5.60); RED CELL DISTRIBUTION WIDTH 16.2 % (11.5-14.5); WHITE BLOOD COUNT 2.5 X10'3 (4.5-11.0)
[2021-06-17 23:21] LABS: HEMATOCRIT 21.4 % (35.0-45.0); PLATELET COUNT 18 X10'3 (140-440)
[2021-06-18] VITALS (36 sets, daily range): BP systolic 85–156; BP diastolic 39–92
[2021-06-18] MEDS: sodium bicarbonate (8.4%) inj. 150 MEQ in dextrose 5%-water 1,000 ML IV SCH (01:12)
[2021-06-18] MEDS: morphine 2 MG/ML inj. syringe IV PRN (01:13)
[2021-06-18] MEDS: piperacillin/tazo 3.375gm/50ml 50 ML IV SCH ×2 (04:48→16:19)
[2021-06-18] MEDS ORDERED: albumin (human) 25% 100 ML IV solution IV ONE (05:00)
[2021-06-18] MEDS ORDERED: octreotide inj. 500 MCG in normal saline 100ml IV soln 100 ML IV SCH (05:00)
[2021-06-18 05:39] LABS: BASOPHILS % (AUTO) 0.2 % (0-1); EOSINOPHILS # (AUTO) 0.1 X10'3 (0-0.9); EOSINOPHILS % (AUTO) 2.1 % (0-6); HEMATOCRIT 22.6 % (35.0-45.0); HEMOGLOBIN 7.5 g/dl (12.0-16.0); LYMPHOCYTES # (AUTO) 0.2 X10'3 (1.1-4.8); LYMPHOCYTES % (AUTO) 5.6 % (21-51); MEAN CORPUSCULAR HEMOGLOBIN 28.6 PG (27.0-31.0); MEAN CORPUSCULAR HGB CONC 33.4 g/dL (33.0-36.5); MEAN CORPUSCULAR VOLUME 85.8 FL (78-98); MEAN PLATELET VOLUME 8.2 FL (7.4-10.4); MONOCYTES % (AUTO) 27.6 % (2-12); NEUTROPHILS # (AUTO) 2.3 X10'3 (1.8-7.7); NEUTROPHILS % (AUTO) 64.5 % (42-75); RED BLOOD COUNT 2.63 X10'6 (4.20-5.60); RED CELL DISTRIBUTION WIDTH 16.1 % (11.5-14.5); WHITE BLOOD COUNT 3.5 X10'3 (4.5-11.0)
[2021-06-18 05:42] LABS: PLATELET COUNT 17 X10'3 (140-440)
[2021-06-18 05:56] LABS: APTT 30 SECONDS (22-32)
[2021-06-18 05:59] LABS: ALANINE AMINOTRANSFERASE 21 U/L (12-78); ALBUMIN 4.2 G/DL (3.4-5.0); ALBUMIN/GLOBULIN RATIO 1.5 (1.1-1.5); ALKALINE PHOSPHATASE 90 IU/L (46-116); ANION GAP 12 (8-16); ANISOCYTOSIS 1+; ASPARTATE AMINO TRANSFERASE 22 U/L (10-37); BILIRUBIN,TOTAL 2.2 MG/DL (0.1-1.0); BLOOD UREA NITROGEN 71 MG/DL (7-18); CALCIUM 8.6 MG/DL (8.5-10.1); CHLORIDE 97 MMOL/L (99-107); CREATININE 2.45 MG/DL (0.40-0.90); GLUCOSE 165 MG/DL (70-104); PLATELET ESTIMATE DECREASED; POTASSIUM 3.6 MMOL/L (3.5-5.1); SODIUM 133 MMOL/L (135-145); TOTAL CARBON DIOXIDE 24.1 MMOL/L (24-32); TOTAL CELLS COUNTED 100; eGFR 19 ML/MIN
[2021-06-18 06:00] LABS: ELLIPTOCYTES FEW; HYPOCHROMASIA 1+; POLYCHROMASIA FEW
[2021-06-18] MEDS ORDERED: metoprolol tartrate 1mg/ml inj IV ONE ×3 (06:00→06:50)
--- NOTE | 2021-06-18 06:33 | NUR ---
Problems reprioritized. Patient report given, questions answered & plan of care reviewed with TED Danielle.
--- NOTE | 2021-06-18 06:35 | NUR ---
Patient in room ICU 2038. I have received report from TED Lemos and had the opportunity to ask questions and assume patient care.
--- NOTE | 2021-06-18 06:46 | NUR ---
Patient became tachycardic with HR is 150s-170s, in A. Fib. Dr. Cortez notified. she ordered stat labs, albumin 25%, 2 units of PRBCs, sandostatin, and protonix. albumin and first unit started. lab results were received and MD ordered to hold the second unit of PRBC. then ordered 2.5mg of metoprolol. Patient was unresponsive, HR still in 150s to 160s. Then, Pt noted to be in respiratory distress, sounds wet. notified and stat ABG and xray ordered. another 5mg of metroprolol ordered as well. These last few orders were passed on to day shift nurse Lolis who will continue patient care.
[2021-06-18] MEDS ORDERED: esmolol/sodium cl bag 250 ML IV SCH (06:55)
[2021-06-18] MEDS ORDERED: furosemide 20 MG/2 ML vial IV ONE (07:00)
[2021-06-18 07:01] LABS: ABG BASE EXCESS -4.9 mmol/L (-2.0-2.0); ABG HCO3 19.2 mmol/L (22.0-26.0); ABG OXYGEN SATURATION 94.8 % (94-97); ABG PCO2 (T) 31.1 mmHg (32.0-45.0); ABG PO2 (T) 81.3 mmHg (75.0-100.0); ALLEN'S TEST POSITIVE; FCOHb 0.3 % (0.0-3.9); FLOW 15 L/min; FMetHb 0.5 % (0.0-1.5); PATIENT TEMPERATURE 36.7; TOTAL HEMOGLOBIN 8.6 G/dl (12.0-16.0)
[2021-06-18] MEDS: ondansetron/PF 4mg/2ml inj IV PRN ×2 (07:36→07:41)
[2021-06-18] MEDS ORDERED: albumin (Human) 5% 250ml 250 ML IV ONE (07:40)
[2021-06-18] MEDS ORDERED: midazolam 1 mg/ML 2ml injection ONE (07:52)
[2021-06-18] MEDS ORDERED: propofol 1000mg/100ml bottle 100 ML IV ONE (07:54)
[2021-06-18] MEDS ORDERED: pantoprazole 40MG/NS 100ML BAG 100 ML IV SCH (08:00)
[2021-06-18] MEDS ORDERED: rifaximin 550mg tablet PO SCH (08:00)
[2021-06-18] MEDS: lactose-reduced food (Ensure Enlive) - 237ml bottle PO SCH (08:00)
[2021-06-18] MEDS: lactulose 20gm/30ml cup PO SCH (08:00)
[2021-06-18] MEDS: sodium bicarbonate 650mg tablet PO SCH (08:00)
[2021-06-18] MEDS ORDERED: metoprolol succinate 25mg (24-HOUR) SR. Tablet PO SCH (08:00)
[2021-06-18] MEDS ORDERED: furosemide 10 MG/1 ML 10ml inj IV ONE (08:40)
[2021-06-18] MEDS: albumin (human) 25% 100 ML IV solution IV SCH ×2 (08:45→19:58)
[2021-06-18] MEDS ORDERED: FENTANYL-0.9 % NACL/PF 100 ML IV PRN (09:35)
[2021-06-18] MEDS: levoTHYROXINE 25mcg tablet PO SCH (09:39)
[2021-06-18 10:39] LABS: LACTIC SEPSIS 2.7 MMOL/L (0.4-2.0)
[2021-06-18] MEDS ORDERED: busPIRone 15mg tablet OGT PRN (11:08)
[2021-06-18] MEDS ORDERED: acetaminophen 325mg tablet OGT PRN ×2 (11:08)
[2021-06-18] MEDS ORDERED: zolpidem 5mg tablet OGT PRN (11:10)
[2021-06-18] MEDS: normal saline 1000ml 1,000 ML IV SCH ×2 (11:56→20:03)
[2021-06-18] MEDS: octreotide inj. 500 MCG in normal saline 100ml IV soln 97.5 ML IV SCH (12:00)
[2021-06-18 12:17] LABS: ABG HCO3 23.9 mmol/L (22.0-26.0); ABG OXYGEN SATURATION 98.1 % (94-97); ABG PCO2 (T) 34.5 mmHg (32.0-45.0); FCOHb 0.3 % (0.0-3.9); FMetHb 0.4 % (0.0-1.5); FO2Hb 97.4 % (94-97); PATIENT TEMPERATURE 36.3; PEEP 5 cm H2O; RESPIRATORY RATE 16 b/min; TIDAL VOLUME 450 mL; TOTAL HEMOGLOBIN 8.4 G/dl (12.0-16.0)
[2021-06-18] MEDS: propofol 1000mg/100ml bottle 100 ML IV SCH ×3 (12:39→20:57)
--- NOTE | 2021-06-18 14:15 | NUR ---
At change of shift, Day shift RN into assess patient. Patient was very short of breath and desaturating to the 80s. Patient was placed on 15L via nonrebreather with a slight improvement of saturation to the low 90s. Patient was coughing frequently with a moderate amount of frothy, red, bloody sputum. Patient lungs were very coarse and patient appeared to be fluid overloaded. Patient rhythm was irregular with a rate in the 140s-160s and systolic blood 150-170. Dr. Cortez called and notified of the turn of events, she ordered for 7.5 mg of Metoprolol to be given IV, this was done without change in the patient's heart rate however, the SBP decreased to the 120s. Dr. Cortez also ordered for Lasix and Esmolol gtt to be started. Dr. Dick was called at 0700 and he stated that he would be in shortly and would like the patient prepared for a paracentesis. Vacuum bottles were retrieved from materials. Once Dr. Dick was bedside he prepped the patient and was able to see a moderate amount of fluid in the peritoneal cavity. He tapped the patient, patient had 7.1 L taken off. Patient was still in distress post paracentesis and Dr. Dick opted to intubate the patient. Medications and tube were prepared. During the preparation, an EKG was done and showed that the patient was not in Afib but was in sinus tachycardia. Patient was then ready for intubation. With MD, RN, x2 RT, student nurse, and patient school laboratory technician bedside patient was given 20 mg of Etomidate and 50 mg of Rocuronium and with the GlideScope patient was intubated by Dr. Dick. Patient tolerated well with very little desaturation. After intubation Dr. Dick asked us to prepare the patient for bronchoscopy. x2 RT prepared for bronchoscopy. Meanwhile, RN started Propofol for sedation. Patient tolerated the bronchoscopy well, MD didn't find much fluid or blood. After this MD was able to place a quad lumen central line in the right IJ.
[2021-06-18 16:18] LABS: RED BLOOD COUNT 2.78 X10'6 (4.20-5.60); WHITE BLOOD COUNT 3.1 X10'3 (4.5-11.0)
[2021-06-18 16:20] LABS: HEMATOCRIT 23.8 % (35.0-45.0); MEAN CORPUSCULAR HEMOGLOBIN 28.7 PG (27.0-31.0); MEAN CORPUSCULAR HGB CONC 33.6 g/dL (33.0-36.5); MEAN CORPUSCULAR VOLUME 85.6 FL (78-98); MEAN PLATELET VOLUME 7.7 FL (7.4-10.4); RED CELL DISTRIBUTION WIDTH 15.7 % (11.5-14.5)
[2021-06-18 16:41] LABS: PLATELET COUNT 12 X10'3 (140-440)
--- NOTE | 2021-06-18 18:22 | NUR ---
Problems reprioritized. Patient report given, questions answered & plan of care reviewed with TED Lemos.
--- NOTE | 2021-06-18 18:30 | NUR ---
Patient in room ICU 2038. I have received report from TED Danielle and had the opportunity to ask questions and assume patient care.
[2021-06-18] MEDS: Melatonin 3mg tablet OGT SCH (19:21)
[2021-06-18] MEDS: metoprolol tartrate 12.5mg (1/2 tablet) OGT SCH (19:22)
[2021-06-18] MEDS: lactulose 20gm/30ml cup OGT SCH (19:58)
[2021-06-18] MEDS: rifaximin 550mg tablet OGT SCH (19:58)
[2021-06-18] MEDS: sodium bicarbonate 650mg tablet OGT SCH (19:58)
[2021-06-19] VITALS (37 sets, daily range): BP systolic 86–164; BP diastolic 45–80
[2021-06-19 02:41] LABS: EOSINOPHILS # (AUTO) 0.1 X10'3 (0-0.9); HEMOGLOBIN 7.5 g/dl (12.0-16.0); LYMPHOCYTES # (AUTO) 0.2 X10'3 (1.1-4.8); RED BLOOD COUNT 2.57 X10'6 (4.20-5.60); WHITE BLOOD COUNT 2.6 X10'3 (4.5-11.0)
[2021-06-19 02:43] LABS: BASOPHILS % (AUTO) 0.4 % (0-1); EOSINOPHILS % (AUTO) 4.3 % (0-6); LYMPHOCYTES % (AUTO) 7.2 % (21-51); MEAN CORPUSCULAR HEMOGLOBIN 29.3 PG (27.0-31.0); MEAN CORPUSCULAR HGB CONC 34.2 g/dL (33.0-36.5); MEAN CORPUSCULAR VOLUME 85.6 FL (78-98); MEAN PLATELET VOLUME 8.1 FL (7.4-10.4); MONOCYTES # (AUTO) 0.8 X10'3 (0-0.9); MONOCYTES % (AUTO) 32.3 % (2-12); NEUTROPHILS # (AUTO) 1.5 X10'3 (1.8-7.7); NEUTROPHILS % (AUTO) 55.8 % (42-75); RED CELL DISTRIBUTION WIDTH 15.7 % (11.5-14.5)
[2021-06-19 02:52] LABS: PLATELET COUNT 9 X10'3 (140-440)
[2021-06-19 03:03] LABS: ALANINE AMINOTRANSFERASE 15 U/L (12-78); ALBUMIN 4.2 G/DL (3.4-5.0); ALKALINE PHOSPHATASE 62 IU/L (46-116); ANION GAP 12 (8-16); ASPARTATE AMINO TRANSFERASE 15 U/L (10-37); BLOOD UREA NITROGEN 70 MG/DL (7-18); BUN/CREATININE RATIO 27.1 (6.6-38.0); CALCIUM 8.5 MG/DL (8.5-10.1); CHLORIDE 98 MMOL/L (99-107); CREATININE 2.58 MG/DL (0.40-0.90); GLUCOSE 112 MG/DL (70-104); POTASSIUM 3.4 MMOL/L (3.5-5.1); SODIUM 136 MMOL/L (135-145); TOTAL CARBON DIOXIDE 26.5 MMOL/L (24-32); TOTAL PROTEIN 6.3 G/DL (6.4-8.2); TRIGLYCERIDES 53 MG/DL (20-135); eGFR 18 ML/MIN
[2021-06-19] MEDS: octreotide inj. 500 MCG in normal saline 100ml IV soln 97.5 ML IV SCH (03:27)
[2021-06-19] MEDS: piperacillin/tazo 3.375gm/50ml 50 ML IV SCH ×2 (03:27→15:36)
[2021-06-19 03:44] LABS: ABG BASE EXCESS -0.9 mmol/L (-2.0-2.0); ABG HCO3 23.6 mmol/L (22.0-26.0); ABG OXYGEN SATURATION 94.3 % (94-97); ABG PCO2 (T) 37.5 mmHg (32.0-45.0); ABG PO2 (T) 73.3 mmHg (75.0-100.0); ALLEN'S TEST POSITIVE; FCOHb 0.3 % (0.0-3.9); FMetHb 0.3 % (0.0-1.5); FO2Hb 93.7 % (94-97); PATIENT TEMPERATURE 36.4; PEEP 5 cm H2O; TOTAL HEMOGLOBIN 8.7 G/dl (12.0-16.0)
[2021-06-19] MEDS: propofol 1000mg/100ml bottle 100 ML IV SCH ×2 (04:17→13:39)
[2021-06-19 05:46] LABS: PLATELET ESTIMATE DECREASED; TOTAL CELLS COUNTED 100
[2021-06-19 05:47] LABS: ANISOCYTOSIS 1+
[2021-06-19 05:51] LABS: ELLIPTOCYTES FEW
[2021-06-19] MEDS ORDERED: potassium Cl 20 mEq/100mL bag IV ONE (06:30)
--- NOTE | 2021-06-19 06:32 | NUR ---
Problems reprioritized. Patient report given, questions answered & plan of care reviewed with TED Danielle. Addendum: 06/19/21 at 0633 by Aminta Ledesma RN report given to TED Pitts
[2021-06-19] MEDS ORDERED: potassium Cl 20mEq/100mL bag 100 ML IV ONE (06:45)
[2021-06-19] MEDS: normal saline 1000ml 1,000 ML IV SCH ×2 (07:02→16:41)
--- NOTE | 2021-06-19 07:49 | NUR ---
RN informed Dr. Cobos about pt. only receiving 1 plt. He stated to not give the second plts. that the noc ordered.
[2021-06-19] MEDS: lactose-reduced food (Ensure Enlive) - 237ml bottle PO SCH (08:00)
[2021-06-19] MEDS: lactulose 20gm/30ml cup OGT SCH ×2 (08:23→19:47)
[2021-06-19] MEDS: rifaximin 550mg tablet OGT SCH ×2 (08:24→19:46)
[2021-06-19] MEDS: sodium bicarbonate 650mg tablet OGT SCH ×2 (08:24→19:46)
[2021-06-19] MEDS: levoTHYROXINE 25mcg tablet OGT SCH (08:24)
[2021-06-19] MEDS: metoprolol tartrate 12.5mg (1/2 tablet) OGT SCH ×2 (08:24→19:46)
[2021-06-19] MEDS: pantoprazole 40MG/NS 100ML BAG 100 ML IV SCH ×2 (08:49→19:45)
[2021-06-19] MEDS: albumin (human) 25% 100 ML IV solution IV SCH (08:51)
--- NOTE | 2021-06-19 12:28 | NUR ---
Reassessment: Pt intubated 06/18 currently NPO w/ MAP [address] during rounds. Pt s/p paracentesis on admit -9.6L and f/u paracentesis yesterday removing ~7.5L per harp repairer at rounds. Pt receiving Propofol at 9.6ml/hr providing 253 kcals/day. LBM 06/18. TF recs below in case prolonged intubation. Will monitor for nutrition intervention needs. Recs 1. IF TF; Vital AF at 64ml/hr goal 2. IF TF; additional water flush per harp repairer given frequent paracentesis 3. IF TF; PALB Q /; daily wts 4. Bowel care per rx 5. upon extubation; advance diet as medically indicated to regular Addendum: 06/19/21 at [address] Amended: Links added.
[2021-06-19] MEDS: morphine 2 MG/ML inj. syringe IV PRN (13:39)
[2021-06-19] MEDS ORDERED: VANCOMYCIN LEVEL IV ONE (15:30)
--- NOTE | 2021-06-19 18:25 | NUR ---
Patient in room ICU 2038. I have received report from Gisselle JEAN and had the opportunity to ask questions and assume patient care.
[2021-06-19] MEDS: Melatonin 3mg tablet OGT SCH (21:00)
[2021-06-20] VITALS (30 sets, daily range): BP systolic 100–157; BP diastolic 4–78
[2021-06-20] MEDS: octreotide inj. 500 MCG in normal saline 100ml IV soln 97.5 ML IV SCH ×2 (01:04→19:34)
[2021-06-20] MEDS: propofol 1000mg/100ml bottle 100 ML IV SCH (02:16)
[2021-06-20] MEDS: normal saline 1000ml 1,000 ML IV SCH ×2 (02:53→13:20)
[2021-06-20 03:05] LABS: EOSINOPHILS # (AUTO) 0.1 X10'3 (0-0.9); LYMPHOCYTES # (AUTO) 0.2 X10'3 (1.1-4.8); LYMPHOCYTES % (AUTO) 7.4 % (21-51); MONOCYTES # (AUTO) 0.9 X10'3 (0-0.9); NEUTROPHILS # (AUTO) 1.1 X10'3 (1.8-7.7); WHITE BLOOD COUNT 2.2 X10'3 (4.5-11.0)
[2021-06-20 03:07] LABS: BASOPHILS % (AUTO) 0.5 % (0-1); EOSINOPHILS % (AUTO) 3.2 % (0-6); HEMOGLOBIN 7.2 g/dl (12.0-16.0); MEAN CORPUSCULAR HEMOGLOBIN 29.2 PG (27.0-31.0); MEAN CORPUSCULAR HGB CONC 33.8 g/dL (33.0-36.5); MEAN CORPUSCULAR VOLUME 86.5 FL (78-98); MEAN PLATELET VOLUME 8.6 FL (7.4-10.4); MONOCYTES % (AUTO) 40.4 % (2-12); NEUTROPHILS % (AUTO) 48.5 % (42-75); RED BLOOD COUNT 2.45 X10'6 (4.20-5.60); RED CELL DISTRIBUTION WIDTH 16.2 % (11.5-14.5)
[2021-06-20 03:22] LABS: ALANINE AMINOTRANSFERASE 12 U/L (12-78); ALBUMIN 3.9 G/DL (3.4-5.0); ALBUMIN/GLOBULIN RATIO 1.8 (1.1-1.5); ALKALINE PHOSPHATASE 65 IU/L (46-116); ANION GAP 11 (8-16); ASPARTATE AMINO TRANSFERASE 14 U/L (10-37); BLOOD UREA NITROGEN 57 MG/DL (7-18); BUN/CREATININE RATIO 22.4 (6.6-38.0); CALCIUM 8.3 MG/DL (8.5-10.1); CHLORIDE 103 MMOL/L (99-107); CREATININE 2.55 MG/DL (0.40-0.90); GLUCOSE 122 MG/DL (70-104); POTASSIUM 3.3 MMOL/L (3.5-5.1); SODIUM 139 MMOL/L (135-145); TOTAL CARBON DIOXIDE 24.9 MMOL/L (24-32); TOTAL PROTEIN 6.1 G/DL (6.4-8.2); eGFR 19 ML/MIN
[2021-06-20 03:29] LABS: HEMATOCRIT 21.2 % (35.0-45.0); PLATELET COUNT 13 X10'3 (140-440)
[2021-06-20 04:08] LABS: TOTAL CELLS COUNTED 100
[2021-06-20 04:10] LABS: ANISOCYTOSIS 1+; PLATELET ESTIMATE DECREASED
[2021-06-20 04:12] LABS: ELLIPTOCYTES FEW; POLYCHROMASIA FEW
[2021-06-20 04:16] LABS: ABG BASE EXCESS -2.8 mmol/L (-2.0-2.0); ABG HCO3 21.3 mmol/L (22.0-26.0); ABG OXYGEN SATURATION 95.2 % (94-97); ABG PCO2 (T) 32.8 mmHg (32.0-45.0); ABG PO2 (T) 76.8 mmHg (75.0-100.0); ALLEN'S TEST POSITIVE; FCOHb 0.1 % (0.0-3.9); FMetHb 0.5 % (0.0-1.5); FO2Hb 94.6 % (94-97); PATIENT TEMPERATURE 36.4; PEEP 5 cm H2O; TOTAL HEMOGLOBIN 7.8 G/dl (12.0-16.0)
[2021-06-20] MEDS: piperacillin/tazo 3.375gm/50ml 50 ML IV SCH ×2 (04:27→16:00)
[2021-06-20] MEDS ORDERED: potassium Cl 20 mEq/100mL bag IV ONE (05:35)
--- NOTE | 2021-06-20 06:16 | NUR ---
Problems reprioritized. Patient report given, questions answered & plan of care reviewed with Roberto JEAN.
[2021-06-20] MEDS: lactose-reduced food (Ensure Enlive) - 237ml bottle PO SCH (08:00)
[2021-06-20] MEDS: lactulose 20gm/30ml cup OGT SCH ×3 (08:27→20:00)
[2021-06-20] MEDS: sodium bicarbonate 650mg tablet OGT SCH ×2 (08:27→19:34)
[2021-06-20] MEDS: metoprolol tartrate 12.5mg (1/2 tablet) OGT SCH ×2 (08:28→19:35)
[2021-06-20] MEDS: rifaximin 550mg tablet OGT SCH ×2 (08:28→19:39)
[2021-06-20] MEDS: levoTHYROXINE 25mcg tablet OGT SCH (08:28)
[2021-06-20] MEDS: pantoprazole 40MG/NS 100ML BAG 100 ML IV SCH ×2 (08:29→19:34)
[2021-06-20] MEDS ORDERED: morphine 2 MG/ML inj. syringe IV ONE (12:50)
--- NOTE | 2021-06-20 18:27 | NUR ---
Patient in room ICU 2038. I have received report from Roberto JEAN and had the opportunity to ask questions and assume patient care.
[2021-06-20] MEDS: morphine 2 MG/ML inj. syringe IV PRN (19:36)
[2021-06-20] MEDS: ondansetron/PF 4mg/2ml inj IV PRN (19:39)
[2021-06-20] MEDS: nicotine 14mg patch - 24hr TD SCH (20:00)
[2021-06-20] MEDS: Melatonin 3mg tablet OGT SCH (21:15)
[2021-06-21] VITALS (15 sets, daily range): BP systolic 107–136; BP diastolic 54–84
[2021-06-21 00:57] LABS: BASOPHILS % (AUTO) 0.4 % (0-1); EOSINOPHILS # (AUTO) 0.1 X10'3 (0-0.9); LYMPHOCYTES # (AUTO) 0.2 X10'3 (1.1-4.8); MONOCYTES # (AUTO) 1.2 X10'3 (0-0.9); NEUTROPHILS # (AUTO) 1.9 X10'3 (1.8-7.7); NEUTROPHILS % (AUTO) 55.9 % (42-75); WHITE BLOOD COUNT 3.4 X10'3 (4.5-11.0)
[2021-06-21 01:00] LABS: EOSINOPHILS % (AUTO) 2.6 % (0-6); HEMATOCRIT 23.6 % (35.0-45.0); HEMOGLOBIN 7.9 g/dl (12.0-16.0); LYMPHOCYTES % (AUTO) 6.3 % (21-51); MEAN CORPUSCULAR HEMOGLOBIN 29.3 PG (27.0-31.0); MEAN CORPUSCULAR HGB CONC 33.7 g/dL (33.0-36.5); MEAN CORPUSCULAR VOLUME 86.9 FL (78-98); MONOCYTES % (AUTO) 34.8 % (2-12); RED BLOOD COUNT 2.71 X10'6 (4.20-5.60); RED CELL DISTRIBUTION WIDTH 16.4 % (11.5-14.5)
[2021-06-21] MEDS: normal saline 1000ml 1,000 ML IV SCH (01:05)
[2021-06-21 01:07] LABS: PLATELET COUNT 21 X10'3 (140-440)
[2021-06-21 01:16] LABS: ALANINE AMINOTRANSFERASE 12 U/L (12-78); ALBUMIN 3.9 G/DL (3.4-5.0); ALBUMIN/GLOBULIN RATIO 1.6 (1.1-1.5); ALKALINE PHOSPHATASE 79 IU/L (46-116); ANION GAP 11 (8-16); ASPARTATE AMINO TRANSFERASE 17 U/L (10-37); BILIRUBIN,TOTAL 1.9 MG/DL (0.1-1.0); BLOOD UREA NITROGEN 60 MG/DL (7-18); BUN/CREATININE RATIO 24.9 (6.6-38.0); CHLORIDE 107 MMOL/L (99-107); CREATININE 2.41 MG/DL (0.40-0.90); GLUCOSE 172 MG/DL (70-104); MAGNESIUM 1.9 MG/DL (1.5-2.4); PHOSPHORUS 1.7 MG/DL (2.3-4.5); POTASSIUM 3.4 MMOL/L (3.5-5.1); SODIUM 141 MMOL/L (135-145); TOTAL CARBON DIOXIDE 23.2 MMOL/L (24-32); TOTAL PROTEIN 6.3 G/DL (6.4-8.2); eGFR 20 ML/MIN
[2021-06-21] MEDS: piperacillin/tazo 3.375gm/50ml 50 ML IV SCH (05:14)
[2021-06-21] MEDS: morphine 2 MG/ML inj. syringe IV PRN (05:15)
--- NOTE | 2021-06-21 06:47 | NUR ---
Problems reprioritized. Patient report given, questions answered & plan of care reviewed with Lottie JEAN.
[2021-06-21] MEDS: lactose-reduced food (Ensure Enlive) - 237ml bottle PO SCH (08:00)
[2021-06-21] MEDS: pantoprazole 40MG/NS 100ML BAG 100 ML IV SCH (09:01)
[2021-06-21] MEDS: sodium bicarbonate 650mg tablet OGT SCH (09:02)
[2021-06-21] MEDS: lactulose 20gm/30ml cup OGT SCH (09:02)
[2021-06-21] MEDS: levoTHYROXINE 25mcg tablet OGT SCH (09:03)
[2021-06-21] MEDS: rifaximin 550mg tablet OGT SCH (09:03)
[2021-06-21] MEDS: metoprolol tartrate 12.5mg (1/2 tablet) OGT SCH (09:03)
[2021-06-21] MEDS: nicotine 14mg patch - 24hr TD SCH (09:04)
[2021-06-21] MEDS ORDERED: potassium phosphate inj 30 MMOL in normal saline 500ml IV soln 500 ML IV ONE (09:20)
[2021-06-21] MEDS ORDERED: HYDROcodone/acetaminophen 5mg/325mg tablet PO PRN (09:25)
--- NOTE | 2021-06-21 13:24 | NUR ---
Patient in room ICU 2038. I have reviewed the chart for pts condition. Pt call correction for pickup time as its been extended. Lunch declined except chocolate Ensure and chocolate brownie. Pt was on bedpan for lg BM. Cleaned and positioned to comfort post BM. Awaiting transfer
--- NOTE | 2021-06-21 14:52 | NUR ---
Pt transferred to [facility] Packet provided by CM and pt picked up by transport company. Pt had called ahead for laura at her SNF. VS stable, no other complaints other than ready to leave.
[2021-07-19] MEDS ORDERED: LACT10SO3 PO (09:28)
[2021-07-19] MEDS ORDERED: NICO-731 TOP (09:28)
[2021-07-19] MEDS ORDERED: SPIR100T5 PO (09:28)
[2021-07-19] MEDS ORDERED: RIFA550T PO (09:28)
[2021-07-19] MEDS ORDERED: MULT-1085 PO (09:28)
[2021-07-19] MEDS ORDERED: MELA5TAB12 PO (09:28)
[2021-07-19] MEDS ORDERED: SODI650T29 PO (09:28)
[2021-07-19] MEDS ORDERED: ASCO500C17 PO (09:28)
[2021-07-19] MEDS ORDERED: LOP12.5T PO (09:28)
[2021-07-19] MEDS ORDERED: FURO-149 PO (09:28)
== END 2021-06-21 14:50 | DRG 377 ==
LOC: ER 04:09 → ED HOLD 09:11 → PCU 3S 14:30 → ICU 2S 06-17 14:38
PROVIDERS: ADMIT Internal Medicine; ATTEND Internal Medicine
PROC: 0DJ08ZZ Inspection of Upper Intestinal Tract, Via Natural or Artificial Opening Endoscopic (ICD-10-PCS; principal; 2021-06-12)
PROC: 30233N1 Transfusion of Nonautologous Red Blood Cells into Peripheral Vein, Percutaneous Approach (ICD-10-PCS; 2021-06-12)
PROC: 0W9G3ZX Drainage of Peritoneal Cavity, Percutaneous Approach, Diagnostic (ICD-10-PCS; 2021-06-15)
PROC: 30233R1 Transfusion of Nonautologous Platelets into Peripheral Vein, Percutaneous Approach (ICD-10-PCS; 2021-06-16)
PROC: 5A1945Z Respiratory Ventilation, 24-96 Consecutive Hours (ICD-10-PCS; 2021-06-18)
PROC: 0BH17EZ Insertion of Endotracheal Airway into Trachea, Via Natural or Artificial Opening (ICD-10-PCS; 2021-06-18)
DX: K92.2 Gastrointestinal hemorrhage, unspecified (principal); K66.1 Hemoperitoneum; J96.90 Respiratory failure, unspecified, unspecified whether with hypoxia or hypercapnia; K76.6 Portal hypertension; I82.890 Acute embolism and thrombosis of other specified veins; N17.9 Acute kidney failure, unspecified; R18.8 Other ascites; E87.1 Hypo-osmolality and hyponatremia; N18.4 Chronic kidney disease, stage 4 (severe); R04.2 Hemoptysis; D61.818 Other pancytopenia; M48.56XA Collapsed vertebra, not elsewhere classified, lumbar region, initial encounter for fracture; E87.2 Acidosis; I85.10 Secondary esophageal varices without bleeding; K74.60 Unspecified cirrhosis of liver; E87.5 Hyperkalemia; K44.9 Diaphragmatic hernia without obstruction or gangrene; E11.22 Type 2 diabetes mellitus with diabetic chronic kidney disease; B37.9 Candidiasis, unspecified; B19.20 Unspecified viral hepatitis C without hepatic coma; I12.9 Hypertensive chronic kidney disease with stage 1 through stage 4 chronic kidney disease, or unspecified chronic kidney disease; I48.91 Unspecified atrial fibrillation; J44.9 Chronic obstructive pulmonary disease, unspecified; K31.7 Polyp of stomach and duodenum; K52.9 Noninfective gastroenteritis and colitis, unspecified; Z66 Do not resuscitate; G89.29 Other chronic pain; R16.1 Splenomegaly, not elsewhere classified; Z88.8 Allergy status to other drugs, medicaments and biological substances; Z90.49 Acquired absence of other specified parts of digestive tract; Z56.0 Unemployment, unspecified; Z79.899 Other long term (current) drug therapy
CPT/HCPCS: 31645; 36415; 36430; 36600; 43235; 49083; 71045; 71250; 74176; 76770; 80053; 80202; 81001; 82140; 82272; 82570; 82803; 82945; 82948; 83605; 83615; 83735; 84100; 84145; 84156; 84157; 84300; 84478; 84484; 85007; 85008; 85018; 85025; 85027; 85379; 85384; 85610; 85651; 85730; 86885; 86900; 86901; 86920; 87040; 87070; 87075; 87077; 87088; 87102; 87207; 89051; 92508; 92616; 93005; 94002; 94003; 94760; 94799; 97110; 97116; 97161; 97530; 99152; 99291; 99292; A4620; C9113; G0378; J0610; J0696; J1815; J1940; J2250; J2270; J2354; J2405; J2543; J2704; J2765; J3010; J3370; J3480; J3490; J7030; J7040; J7050; J7070; P9016; P9035; P9045; P9047; Q9963

== ENCOUNTER 2021-07-02 08:49 | Day surgery (SDC) | payer MEDICARE, MEDICAID ==
[2021-07-02] VITALS (12 sets, daily range): BP systolic 92–116; BP diastolic 49–68
[~2021-07-02] VITALS: Ht 165.1 cm; Wt 85.9 kg
[~2021-07-02 08:49] MED LIST changes: +FURO-150 PO; -FURO40TA4 PO; +LACT10SO3 PO; -LACT10SO67 PO; +LINE600T11 PO; +MELA3TAB41 PO; -MORP15TA PO; +MULT-1085 PO; +OMEP20CA15 PO; +OXYC-150 PO; -PANT40TA54 PO; -PROP40TA72 PO; +RIFA200T2 PO; -RIFA550T PO; +ZOLP5TAB2 PO
[2021-07-02] MEDS ORDERED: LIDOcaine 1%/PF 5ML 10 MG/ML VIAL SQ ONE (09:05)
[2021-07-02] MEDS ORDERED: MORP15TA PO (09:28)
[2021-07-02] MEDS ORDERED: BUSP10TA11 PO (09:28)
[2021-07-02] MEDS ORDERED: NICO-630 TOP (09:28)
[2021-07-02] MEDS ORDERED: DIPH-423 PO (09:28)
[2021-07-02] MEDS ORDERED: LOP12.5T PO (09:28)
[2021-07-02] MEDS ORDERED: ASCO500C17 PO (09:28)
[2021-07-02] MEDS: albumin 25% 100mL bottle x 1 IV PRN ×2 (11:37→11:38)
== END 2021-07-02 13:45 ==
LOC: SSTAY O 08:49
PROVIDERS: ATTEND Preventive Medicine Aerospace Medicine
DX: R18.8 Other ascites (principal); R14.0 Abdominal distension (gaseous); I10 Essential (primary) hypertension; J44.9 Chronic obstructive pulmonary disease, unspecified; E11.9 Type 2 diabetes mellitus without complications; K74.60 Unspecified cirrhosis of liver; G89.29 Other chronic pain; Z86.14 Personal history of Methicillin resistant Staphylococcus aureus infection; Z86.19 Personal history of other infectious and parasitic diseases; Z90.49 Acquired absence of other specified parts of digestive tract; Z98.890 Other specified postprocedural states; Z79.899 Other long term (current) drug therapy
CPT/HCPCS: 49083; J3490; P9047

== ENCOUNTER 2021-07-16 08:07 | Day surgery (SDC) | payer MEDICARE, MEDICAID ==
[2021-07-16] VITALS (9 sets, daily range): BP systolic 139–155; BP diastolic 73–101
[~2021-07-16] VITALS: Ht 165.1 cm; Wt 85.7 kg
[~2021-07-16 08:07] MED LIST changes: +ASCO500C17 PO; +BUSP10TA11 PO; -CLON0.1T2 PO; +DIPH-423 PO; -LINE600T11 PO; +LOP12.5T PO; +MORP15TA PO; +NICO-630 TOP; -SPIR100T5 PO
[2021-07-16] MEDS ORDERED: LIDOcaine 1%/PF 5ML 10 MG/ML VIAL SQ ONE (08:10)
[2021-07-16] MEDS ORDERED: albumin 25% 100mL bottle x 1 IV PRN (08:15)
[2021-07-16] MEDS ORDERED: SODI650T29 PO (08:19)
[2021-07-16] MEDS ORDERED: SPIR100T5 PO (08:19)
[2021-07-16] MEDS ORDERED: HYDR2TAB28 PO (08:24)
--- NOTE | 2021-07-16 10:06 | NUR ---
Pt in bed, albumin infusing as ordered. Pt eating breakfast tray. 250ml oral fluid intake.
== END 2021-07-16 11:05 ==
LOC: SSTAY O 08:07
PROVIDERS: ATTEND Radiology Diagnostic Radiology
DX: R18.8 Other ascites (principal); R14.0 Abdominal distension (gaseous); K74.60 Unspecified cirrhosis of liver; I10 Essential (primary) hypertension; J44.9 Chronic obstructive pulmonary disease, unspecified; E11.9 Type 2 diabetes mellitus without complications; G89.29 Other chronic pain; Z86.14 Personal history of Methicillin resistant Staphylococcus aureus infection; Z90.49 Acquired absence of other specified parts of digestive tract; Z86.19 Personal history of other infectious and parasitic diseases; Z98.890 Other specified postprocedural states; Z88.8 Allergy status to other drugs, medicaments and biological substances; Z79.899 Other long term (current) drug therapy
CPT/HCPCS: 49083; P9047

== ENCOUNTER 2021-07-31 06:26 | Day surgery (SDC) | payer MEDICARE, MEDICAID ==
[2021-07-31] VITALS (7 sets, daily range): BP systolic 102–114; BP diastolic 54–60
[~2021-07-31 06:26] MED LIST changes: -BUSP10TA11 PO; -DIPH-423 PO; +FURO-149 PO; -FURO-150 PO; -LEVO25TA7 PO; -MELA3TAB41 PO; +MELA5TAB12 PO; -MORP15TA PO; -NICO-630 TOP; +NICO-731 TOP; -OMEP20CA15 PO; -OXYC-150 PO; -RIFA200T2 PO; +RIFA550T PO; +SODI650T29 PO; +SPIR100T5 PO; -ZOLP5TAB2 PO
[2021-07-31] MEDS ORDERED: LIDOcaine 1% 30ml preserv. free vial SQ STA ×2 (06:30→06:41)
[2021-07-31] MEDS ORDERED: albumin 25% 100mL bottle x 1 IV PRN (06:40)
[2021-07-31] MEDS ORDERED: LIDOcaine 1%/PF 5ML 10 MG/ML VIAL SQ ONE (06:45)
== END 2021-07-31 10:00 | disposition home or self-care (01) ==
LOC: SSTAY O 06:26
PROVIDERS: ATTEND Radiology Diagnostic Radiology
DX: R18.8 Other ascites (principal); R14.0 Abdominal distension (gaseous); I10 Essential (primary) hypertension; J44.9 Chronic obstructive pulmonary disease, unspecified; G89.29 Other chronic pain; K74.60 Unspecified cirrhosis of liver; E11.9 Type 2 diabetes mellitus without complications; Z86.14 Personal history of Methicillin resistant Staphylococcus aureus infection; Z90.49 Acquired absence of other specified parts of digestive tract; Z98.890 Other specified postprocedural states; Z79.899 Other long term (current) drug therapy
CPT/HCPCS: 49083

== ENCOUNTER 2021-08-14 06:48 | Day surgery (SDC) | payer MEDICARE, MEDICAID ==
[~2021-08-14] VITALS: Ht 170.2 cm; Wt 81.2 kg
[2021-08-14] MEDS ORDERED: normal saline 1000ml 1,000 ML IV PRN (07:10)
[2021-08-14] MEDS ORDERED: albumin 25% 100mL bottle x 1 IV PRN (07:10)
[2021-08-14 07:22] VITALS: BP 115/56
[2021-08-14] MEDS ORDERED: SODI650T29 PO (07:43)
[2021-08-14] MEDS ORDERED: OXYC-150 PO (07:43)
[2021-08-14] MEDS ORDERED: LIDOcaine 1%/PF 5ML 10 MG/ML VIAL SQ ONE ×2 (07:50→08:00)
[2021-08-14 09:20] VITALS: BP 133/66
== END 2021-08-14 10:20 ==
LOC: SSTAY O 06:48
PROVIDERS: ATTEND Radiology Diagnostic Radiology
DX: R18.8 Other ascites (principal); Z53.8 Procedure and treatment not carried out for other reasons; I10 Essential (primary) hypertension; E11.9 Type 2 diabetes mellitus without complications; J44.9 Chronic obstructive pulmonary disease, unspecified; K74.69 Other cirrhosis of liver; G89.29 Other chronic pain; Z86.19 Personal history of other infectious and parasitic diseases; Z86.14 Personal history of Methicillin resistant Staphylococcus aureus infection; Z90.49 Acquired absence of other specified parts of digestive tract; Z98.890 Other specified postprocedural states; Z88.8 Allergy status to other drugs, medicaments and biological substances; Z79.899 Other long term (current) drug therapy
CPT/HCPCS: 76705; J3490

== ENCOUNTER 2021-08-20 09:10 | Emergency (ER) | payer MEDICARE, MEDICAID ==
[~2021-08-20] VITALS: Ht 165.1 cm; Wt 79.5 kg
[~2021-08-20 09:10] MED LIST changes: -NICO-731 TOP; +OXYC-150 PO; -SPIR100T5 PO
[2021-08-20 14:21] VITALS: BP 123/56
[2021-08-20] MEDS ORDERED: CLON0.1T PO (15:00)
[2021-08-20] MEDS ORDERED: SODI650T29 PO (15:07)
[2021-08-20] MEDS ORDERED: LACT10SO3 PO (15:07)
[2021-08-20] MEDS ORDERED: MULT-1085 PO (15:07)
[2021-08-20] MEDS ORDERED: LOP12.5T PO (15:07)
[2021-08-20] MEDS ORDERED: FURO-149 PO (15:07)
[2021-08-20] MEDS ORDERED: RIFA550T PO (15:07)
== END 2021-08-20 15:39 | disposition home or self-care (01) ==
LOC: ER 09:11
DX: Z76.0 Encounter for issue of repeat prescription (principal); I10 Essential (primary) hypertension; J44.9 Chronic obstructive pulmonary disease, unspecified; E11.9 Type 2 diabetes mellitus without complications; G89.29 Other chronic pain; F19.90 Other psychoactive substance use, unspecified, uncomplicated; Z86.69 Personal history of other diseases of the nervous system and sense organs; Z86.19 Personal history of other infectious and parasitic diseases; Z86.14 Personal history of Methicillin resistant Staphylococcus aureus infection; Z90.49 Acquired absence of other specified parts of digestive tract; Z90.89 Acquired absence of other organs; Z56.0 Unemployment, unspecified; Z88.8 Allergy status to other drugs, medicaments and biological substances; Z79.899 Other long term (current) drug therapy
CPT/HCPCS: 99281

== ENCOUNTER 2021-08-23 21:12 | Emergency (ER) | payer MEDICARE, MEDICAID ==
[~2021-08-23] VITALS: Ht 165.1 cm; Wt 86.0 kg
[~2021-08-23 21:12] MED LIST changes: +CLON0.1T PO
[2021-08-23 21:18] VITALS: BP 129/49
== END 2021-08-23 22:55 | disposition left against medical advice (07) ==
LOC: VAS 21:14
DX: R51.9 Headache, unspecified (principal); Z53.21 Procedure and treatment not carried out due to patient leaving prior to being seen by health care provider

== ENCOUNTER 2021-08-28 04:34 | Inpatient (IN) | payer MEDICARE, MEDICAID ==
[~2021-08-28] VITALS: Ht 160 cm; Wt 82.3 kg
[2021-08-28] MEDS ORDERED: ipratropium/albuterol 3ml nebule NEB ONE (04:50)
[2021-08-28 05:32] LABS: ALANINE AMINOTRANSFERASE 23 U/L (12-78); ALKALINE PHOSPHATASE 192 IU/L (46-116); ANION GAP 10 (8-16); BLOOD UREA NITROGEN 34 MG/DL (7-18); BUN/CREATININE RATIO 20.1 (6.6-38.0); CALCIUM 7.6 MG/DL (8.5-10.1); CHLORIDE 103 MMOL/L (99-107); CREATININE 1.69 MG/DL (0.40-0.90); POTASSIUM 4.2 MMOL/L (3.5-5.1); SODIUM 134 MMOL/L (135-145); TOTAL CARBON DIOXIDE 20.8 MMOL/L (24-32); eGFR 30 ML/MIN
[2021-08-28 05:33] LABS: BASOPHILS # (AUTO) 0.1 X10'3 (0-0.2); BASOPHILS % (AUTO) 1.5 % (0-1); EOSINOPHILS # (AUTO) 0.1 X10'3 (0-0.9); EOSINOPHILS % (AUTO) 2.2 % (0-6); HEMATOCRIT 29.7 % (35.0-45.0); HEMOGLOBIN 9.5 g/dl (12.0-16.0); LYMPHOCYTES # (AUTO) 0.6 X10'3 (1.1-4.8); LYMPHOCYTES % (AUTO) 13.5 % (21-51); MEAN CORPUSCULAR HEMOGLOBIN 30.4 PG (27.0-31.0); MEAN CORPUSCULAR VOLUME 94.9 FL (78-98); MEAN PLATELET VOLUME 7.8 FL (7.4-10.4); MONOCYTES # (AUTO) 1.1 X10'3 (0-0.9); MONOCYTES % (AUTO) 23.4 % (2-12); NEUTROPHILS # (AUTO) 2.7 X10'3 (1.8-7.7); NEUTROPHILS % (AUTO) 59.4 % (42-75); RED BLOOD COUNT 3.13 X10'6 (4.20-5.60); RED CELL DISTRIBUTION WIDTH 18.1 % (11.5-14.5); WHITE BLOOD COUNT 4.6 X10'3 (4.5-11.0)
[2021-08-28 05:36] LABS: PLATELET COUNT 49 X10'3 (140-440)
[2021-08-28 05:55] LABS: TOTAL CELLS COUNTED 100
[2021-08-28 05:56] LABS: ANISOCYTOSIS 2+; PLATELET ESTIMATE DECREASED
[2021-08-28] MEDS ORDERED: furosemide 10 MG/1 ML 10ml inj IV ONE (06:00)
[2021-08-28 06:03] LABS: ALBUMIN/GLOBULIN RATIO 0.5 (1.1-1.5); ASPARTATE AMINO TRANSFERASE 52 U/L (10-37); BILIRUBIN,TOTAL 0.7 MG/DL (0.1-1.0)
[2021-08-28 06:11] LABS: GLUCOSE 120 MG/DL (70-104)
--- NOTE | 2021-08-28 06:15 | NUR ---
Alerted Dr. Schneider to patient's decreasing BP's. No new orders at this time.
[2021-08-28] MEDS ORDERED: METO25TA6 PO (07:55)
--- NOTE | 2021-08-28 07:55 | NUR ---
criss mills aware of pt continued hypotension, current 94/44. pt asymptomatic. no new orders
--- NOTE | 2021-08-28 07:55 | NUR ---
med rec completed with pt and with external med hx
[2021-08-28] MEDS ORDERED: LACT10SO67 PO (10:14)
[2021-08-28] MEDS ORDERED: SODI650T29 PO (10:14)
[2021-08-28] MEDS ORDERED: MULT-1085 PO (10:14)
[2021-08-28] MEDS ORDERED: RIFA550T PO (10:14)
[2021-08-28] MEDS ORDERED: FURO40TA4 PO (10:14)
--- NOTE | 2021-08-28 12:04 | NUR ---
pt sleeping. woke up and reports she is "fine" and doesnt need anything. no questions or concerns at this time.
[2021-08-28 15:20] VITALS: BP 93/46
[2021-08-28] MEDS ORDERED: magnesium Cl slow-release 64mg tablet PO PRN (15:35)
[2021-08-28] MEDS ORDERED: POTASSIUM BICARB 20meq eff tab 20 MEQ TABLET.EFF PO PRN ×2 (15:35)
[2021-08-28] MEDS ORDERED: potassium CL 10mEq/100ml bag 100 ML IV PRN (15:35)
[2021-08-28] MEDS ORDERED: magnesium 4gm in 100ml NS 100 ML IV PRN (15:35)
[2021-08-28] MEDS ORDERED: magnesium 2GM in 50ml NS 50 ML IV PRN (15:35)
[2021-08-28 16:54] LABS: MAGNESIUM 1.9 MG/DL (1.5-2.4); POTASSIUM 4.2 MMOL/L (3.5-5.1)
[2021-08-28 18:00] VITALS: BP 99/50
--- NOTE | 2021-08-28 18:42 | NUR ---
Report given to Katelyn JEAN. Patient resting in bed in no acute distress.
[2021-08-28] MEDS: morphine 2 MG/ML inj. syringe IV PRN (19:58)
[2021-08-28] MEDS: K and/or MAG REPLACEMENT MC SCH (20:00)
[2021-08-28] MEDS: ipratropium/albuterol 3ml nebule NEB SCH (21:20)
[2021-08-28 22:00] VITALS: BP 122/55
[2021-08-29] VITALS (7 sets, daily range): BP systolic 117–140; BP diastolic 59–74
[2021-08-29] MEDS: ipratropium/albuterol 3ml nebule NEB SCH ×4 (03:23→20:32)
[2021-08-29] MEDS: morphine 2 MG/ML inj. syringe IV PRN ×5 (03:45→21:06)
--- NOTE | 2021-08-29 06:23 | NUR ---
Problems reprioritized. Patient report given, questions answered & plan of care reviewed with TED Zepeda.
[2021-08-29 06:54] LABS: BASOPHILS % (AUTO) 0.4 % (0-1); EOSINOPHILS % (AUTO) 1.4 % (0-6); HEMATOCRIT 23.7 % (35.0-45.0); HEMOGLOBIN 7.7 g/dl (12.0-16.0); LYMPHOCYTES # (AUTO) 0.2 X10'3 (1.1-4.8); MEAN CORPUSCULAR HEMOGLOBIN 30.9 PG (27.0-31.0); MEAN CORPUSCULAR HGB CONC 32.6 g/dL (33.0-36.5); MEAN CORPUSCULAR VOLUME 94.9 FL (78-98); MEAN PLATELET VOLUME 7.7 FL (7.4-10.4); MONOCYTES # (AUTO) 0.5 X10'3 (0-0.9); MONOCYTES % (AUTO) 29.9 % (2-12); NEUTROPHILS # (AUTO) 0.8 X10'3 (1.8-7.7); NEUTROPHILS % (AUTO) 53.3 % (42-75); RED BLOOD COUNT 2.49 X10'6 (4.20-5.60); RED CELL DISTRIBUTION WIDTH 17.8 % (11.5-14.5); WHITE BLOOD COUNT 1.6 X10'3 (4.5-11.0)
[2021-08-29 07:01] LABS: ALBUMIN 2.4 G/DL (3.4-5.0); ANION GAP 9 (8-16); BLOOD UREA NITROGEN 37 MG/DL (7-18); BUN/CREATININE RATIO 21.1 (6.6-38.0); CALCIUM 7.4 MG/DL (8.5-10.1); CHLORIDE 106 MMOL/L (99-107); CREATININE 1.75 MG/DL (0.40-0.90); MAGNESIUM 1.8 MG/DL (1.5-2.4); POTASSIUM 4.2 MMOL/L (3.5-5.1); SODIUM 137 MMOL/L (135-145); eGFR 29 ML/MIN
[2021-08-29 07:02] LABS: GLUCOSE 155 MG/DL (70-104)
[2021-08-29 07:21] LABS: PLATELET COUNT 31 X10'3 (140-440)
[2021-08-29 07:50] LABS: ANISOCYTOSIS 1+; PLATELET ESTIMATE DECREASED; POIKILOCYTOSIS 1+; TOTAL CELLS COUNTED 50
--- NOTE | 2021-08-29 07:57 | NUR ---
Paged Dr England PAGER ID: [phone] MESSAGE: [id number]. Marjan Bryan. Critical Platelet 31. Thcarmita, Vicki [phone]
[2021-08-29] MEDS: K and/or MAG REPLACEMENT MC SCH ×2 (08:00→20:02)
[2021-08-29] MEDS: lactulose 20gm/30ml cup PO SCH ×3 (08:09→20:04)
[2021-08-29] MEDS ORDERED: LIDOcaine 1%/PF 5ML 10 MG/ML VIAL ONE ×2 (09:56→10:31)
--- NOTE | 2021-08-29 11:21 | NUR ---
Checked on patient dressing - it is no longer leaking from para site on left side. Pressure dressing CDI. Will continue to monitor. Post of VS started at this time.
--- NOTE | 2021-08-29 12:00 | NUR ---
Checked on pt dressing post para. No additional leaking. Pt doing well.
--- NOTE | 2021-08-29 16:32 | NUR ---
Hourly roundings have been completed. Call light and personal belongings within reach. Will continue to monitor.
[2021-08-29] MEDS: methylPREDNISolone sod succ 125mg/2ml vial IV SCH (20:05)
[2021-08-30 02:00] VITALS: BP 134/70
[2021-08-30] MEDS: lactulose 20gm/30ml cup PO SCH ×4 (02:00→20:00)
[2021-08-30] MEDS: morphine 2 MG/ML inj. syringe IV PRN ×6 (02:02→22:46)
[2021-08-30] MEDS: ipratropium/albuterol 3ml nebule NEB SCH ×4 (03:08→19:47)
--- NOTE | 2021-08-30 06:15 | NUR ---
Pt refused 0600 Vitals. Will try again later.
[2021-08-30 06:31] LABS: BASOPHILS % (AUTO) 0.1 % (0-1); EOSINOPHILS % (AUTO) 0 % (0-6); HEMATOCRIT 26.4 % (35.0-45.0); HEMOGLOBIN 8.6 g/dl (12.0-16.0); LYMPHOCYTES # (AUTO) 0.1 X10'3 (1.1-4.8); MEAN CORPUSCULAR HEMOGLOBIN 30.5 PG (27.0-31.0); MEAN CORPUSCULAR HGB CONC 32.6 g/dL (33.0-36.5); MEAN CORPUSCULAR VOLUME 93.5 FL (78-98); MEAN PLATELET VOLUME 7.7 FL (7.4-10.4); MONOCYTES # (AUTO) 0.1 X10'3 (0-0.9); MONOCYTES % (AUTO) 9.7 % (2-12); NEUTROPHILS # (AUTO) 0.9 X10'3 (1.8-7.7); NEUTROPHILS % (AUTO) 82.2 % (42-75); RED BLOOD COUNT 2.82 X10'6 (4.20-5.60); RED CELL DISTRIBUTION WIDTH 17.3 % (11.5-14.5); WHITE BLOOD COUNT 1.1 X10'3 (4.5-11.0)
[2021-08-30 06:48] LABS: PLATELET COUNT 28 X10'3 (140-440)
[2021-08-30 07:00] VITALS: BP 136/70
--- NOTE | 2021-08-30 07:07 | NUR ---
Paged Dr England PAGER ID: [phone] MESSAGE: [id number]. Marjan Bryan. Critical Plt 28, WBC 1.1. Vicki [phone]
[2021-08-30 07:15] LABS: LARGE PLATELETS FEW; LYMPHOCYTES % (MANUAL) 4 % (21-51); MONOCYTES % (MANUAL) 6 % (2-12); NEUTROPHILS % (MANUAL) 86 % (42-75); PLATELET ESTIMATE DECREASED; POIKILOCYTOSIS 1+; TOTAL CELLS COUNTED 100
[2021-08-30 07:16] LABS: ANISOCYTOSIS 1+
[2021-08-30 07:22] LABS: ALBUMIN 2.4 G/DL (3.4-5.0); ANION GAP 11 (8-16); BLOOD UREA NITROGEN 30 MG/DL (7-18); BUN/CREATININE RATIO 20.8 (6.6-38.0); CALCIUM 7.6 MG/DL (8.5-10.1); CHLORIDE 107 MMOL/L (99-107); CREATININE 1.44 MG/DL (0.40-0.90); MAGNESIUM 1.7 MG/DL (1.5-2.4); POTASSIUM 4.5 MMOL/L (3.5-5.1); SODIUM 139 MMOL/L (135-145); TOTAL CARBON DIOXIDE 21.3 MMOL/L (24-32); eGFR 36 ML/MIN
[2021-08-30 07:24] LABS: GLUCOSE 212 MG/DL (70-104)
[2021-08-30] MEDS: K and/or MAG REPLACEMENT MC SCH ×2 (08:00→18:57)
[2021-08-30] MEDS: methylPREDNISolone sod succ 125mg/2ml vial IV SCH ×2 (09:05→20:08)
[2021-08-30] MEDS: metoprolol tartrate 12.5mg (1/2 tablet) PO SCH ×2 (09:07→20:19)
[2021-08-30 11:00] VITALS: BP 158/78
--- NOTE | 2021-08-30 11:54 | NUR ---
Attempted PIV placement x 3. No luck. Will page PICC nurse for assistance.
[2021-08-30] MEDS: traMADol 50MG tablet PO SCH ×2 (13:21→20:19)
[2021-08-30 15:00] VITALS: BP 164/77
--- NOTE | 2021-08-30 15:26 | NUR ---
paged Dr England PAGER ID: [phone] MESSAGE: [id number]. Marjan Bryan. BP 164/77. PRN BP med? Huma, Vicki [phone]
--- NOTE | 2021-08-30 16:16 | NUR ---
Paged Dr England PAGER ID: [phone] MESSAGE: [id number]. Marjan Bryan. Per pt, takes po morphine BID and Percocet QID reg. Constant 8-10/10 pain. More pain meds? Vicki Finn [phone]
[2021-08-30 18:00] VITALS: BP 159/84
--- NOTE | 2021-08-30 20:08 | NUR ---
Patient refused lactulose the evening, stated she has had multiple loose stools today, will let RN know if she wants dose at 0200 when the time comes.
--- NOTE | 2021-08-30 20:15 | NUR ---
After breathing treatment patient becoming very SOB. O2 Sat was 93-96% on 2-3L, patient tachypneic and breathing out of her mouth. RN repeatedly reminded patient to take slow deep breaths in through her nose and out through her mouth, patient sounded very moist and like she has phlegm in back of her throat. RN instructed and encouraged patient to take several deep breaths and then cough, patient did several times and coughed up medium amounts white thick sputum. After coughing this up and sitting up straight in bed, as well as giving scheduled pain meds, patient breathing slowed and she appeared to be more comfortable. Patient left to rest with call light next to her incase she started having any other issues. When RN checked on patient half hour later she was resting quietly with her eyes closed. Continuing to monitor.
[2021-08-30] MEDS: furosemide 40mg tablet PO SCH (20:18)
[2021-08-30] MEDS: oxyCODONE/APAP 5-325mg tablet PO SCH (20:19)
[2021-08-30] MEDS: calcium carbonate 500mg chew tablet PO SCH (20:19)
[2021-08-30] MEDS: rifaximin 550mg tablet PO SCH (20:20)
[2021-08-30] MEDS: Melatonin 3mg tablet PO SCH (21:25)
[2021-08-30 22:00] VITALS: BP 158/78
[2021-08-31] VITALS (10 sets, daily range): BP systolic 144–211; BP diastolic 65–117
[2021-08-31] MEDS: lactulose 20gm/30ml cup PO SCH ×5 (02:00→20:56)
[2021-08-31] MEDS: traMADol 50MG tablet PO SCH ×4 (02:02→20:58)
[2021-08-31] MEDS: ipratropium/albuterol 3ml nebule NEB SCH ×4 (02:43→20:19)
[2021-08-31] MEDS: morphine 2 MG/ML inj. syringe IV PRN ×4 (03:55→22:12)
--- NOTE | 2021-08-31 04:15 | NUR ---
Morning labs obtained
[2021-08-31] MEDS: temazepam 15mg capsule PO PRN ×2 (05:39→20:56)
--- NOTE | 2021-08-31 05:41 | NUR ---
Dr Milner contacted d/t patient reports feeling anxious, sweaty and SOB. Patient oxygen saturation 93-95% on 2-3L NC. Patient mouth breather and has hard time remembering to breath in through her nose with nasal canula. NC placed in patient mouth, patient still trying to cough. RN stayed with patient x7 min working on slow deep breathing and relaxation. Patient finally settled, RN asked if patient has issues with anxiety and if she ever takes anything for it since she has allergy to lorazepam. Patient denies allergy to lorazepam, will inform day nurse, but patient states she does have anxiety. Order received for Restoril TID PRN for anxiety. RN informed patient in provided instruction on purpose, side effects and scheduled availability of med. Patient verbalizes understanding. Continues to lay in bed, O2 in mouth and working on slow deep breathing. Will continue to monitor and endorse to day nurse.
[2021-08-31 06:58] LABS: BASOPHILS % (AUTO) 0.1 % (0-1); EOSINOPHILS % (AUTO) 0 % (0-6); HEMATOCRIT 30.4 % (35.0-45.0); LYMPHOCYTES # (AUTO) 0.1 X10'3 (1.1-4.8); MEAN CORPUSCULAR HEMOGLOBIN 31.1 PG (27.0-31.0); MEAN CORPUSCULAR HGB CONC 32.9 g/dL (33.0-36.5); MEAN CORPUSCULAR VOLUME 94.5 FL (78-98); MEAN PLATELET VOLUME 7.1 FL (7.4-10.4); MONOCYTES # (AUTO) 0.6 X10'3 (0-0.9); MONOCYTES % (AUTO) 9.5 % (2-12); NEUTROPHILS # (AUTO) 5.6 X10'3 (1.8-7.7); NEUTROPHILS % (AUTO) 88.4 % (42-75); RED BLOOD COUNT 3.21 X10'6 (4.20-5.60); RED CELL DISTRIBUTION WIDTH 17.9 % (11.5-14.5); WHITE BLOOD COUNT 6.3 X10'3 (4.5-11.0)
[2021-08-31 07:12] LABS: PLATELET COUNT 51 X10'3 (140-440)
[2021-08-31 07:19] LABS: ALBUMIN 2.9 G/DL (3.4-5.0); ANION GAP 6 (8-16); BLOOD UREA NITROGEN 33 MG/DL (7-18); BUN/CREATININE RATIO 22.4 (6.6-38.0); CALCIUM 8.1 MG/DL (8.5-10.1); CHLORIDE 107 MMOL/L (99-107); CREATININE 1.47 MG/DL (0.40-0.90); MAGNESIUM 1.8 MG/DL (1.5-2.4); POTASSIUM 4.8 MMOL/L (3.5-5.1); SODIUM 136 MMOL/L (135-145); TOTAL CARBON DIOXIDE 22.7 MMOL/L (24-32); eGFR 35 ML/MIN
[2021-08-31 07:24] LABS: GLUCOSE 168 MG/DL (70-104)
--- NOTE | 2021-08-31 07:26 | NUR ---
Patient in room PCU 3012. I have received report from TED GONZALEZ, and had the opportunity to ask questions and assume patient care.
[2021-08-31] MEDS: K and/or MAG REPLACEMENT MC SCH ×2 (07:30→20:00)
[2021-08-31] MEDS: methylPREDNISolone sod succ 125mg/2ml vial IV SCH ×2 (08:03→20:57)
[2021-08-31] MEDS: metoprolol tartrate 12.5mg (1/2 tablet) PO SCH ×2 (08:04→20:57)
[2021-08-31] MEDS: oxyCODONE/APAP 5-325mg tablet PO SCH ×2 (08:04→20:58)
[2021-08-31] MEDS: rifaximin 550mg tablet PO SCH ×2 (08:05→20:57)
[2021-08-31] MEDS: calcium carbonate 500mg chew tablet PO SCH ×2 (08:05→20:58)
[2021-08-31] MEDS: multivitamins, therapeutics tablet PO SCH (08:05)
[2021-08-31] MEDS: furosemide 40mg tablet PO SCH ×2 (08:05→20:58)
[2021-08-31] MEDS ORDERED: furosemide 40mg/4ml inj IV ONE (08:55)
[2021-08-31 10:15] LABS: ABG BASE EXCESS -5.7 mmol/L (-2.0-2.0); ABG HCO3 18.8 mmol/L (22.0-26.0); ABG OXYGEN SATURATION 95.7 % (94-97); ABG PCO2 (T) 33.1 mmHg (32.0-45.0); ABG PO2 (T) 81.2 mmHg (75.0-100.0); ALLEN'S TEST POSITIVE; FCOHb 0.3 % (0.0-3.9); FLOW 3 L/min; FMetHb 0.3 % (0.0-1.5); FO2Hb 95.1 % (94-97); TOTAL HEMOGLOBIN 10.5 G/dl (12.0-16.0)
--- NOTE | 2021-08-31 12:33 | NUR ---
PAGE SENT PAGER ID: [phone] MESSAGE: [id number] FINA ARCHER, PT'S BP 176/86, HR 81. THERE ARE NO PRNS. THANK YOU, RICHIE [phone]
--- NOTE | 2021-08-31 14:29 | NUR ---
PAGE SENT PAGER ID: [phone] MESSAGE: [id number] FINA ARCHER, BP 204/110, HR 88. THE PT DOESN'T HAVE ANY PRNS FOR HIGH BLOOD PRESSURE. THANK YOU, RICHIE [phone]
[2021-08-31] MEDS: hydrALAZINE 20mg/ml inj. IV PRN (14:44)
--- NOTE | 2021-08-31 15:16 | NUR ---
PAGE SENT 3734R, FINA ARCHER, EFFORT TO BREATH IS INCREASING. PLEASE COME AND ASSESS. THANK YOU, RICHIE Lakhani [phone]
--- NOTE | 2021-08-31 15:22 | NUR ---
PAGE SENT [id number], FINA ARCHER, DR. SINGER HAS ORDERED A BIPAP FOR THE PT. THANK YOU, RICHIE [phone]
[2021-08-31] MEDS ORDERED: hydrALAZINE 20mg/ml inj. IV ONE (15:30)
[2021-08-31 16:27] LABS: BFSOURCE RIGHT PLEURAL FLD; PLEURAL FLUID PH 7.377 (7.63-7.65)
[2021-08-31 16:58] LABS: GLUCOSE,BODY FLUID 178 MG/DL; LDH,BODY FLUID 85 U/L
[2021-08-31 17:09] LABS: TOTAL PROTEIN,BODY FLUID < 2.0 G/DL
[2021-08-31 17:16] LABS: ABG BASE EXCESS -6.2 mmol/L (-2.0-2.0); ABG OXYGEN SATURATION 99.6 % (94-97); ABG PCO2 (T) 31.4 mmHg (32.0-45.0); ABG PO2 (T) 404.8 mmHg (75.0-100.0); ALLEN'S TEST POSITIVE; FCOHb 0.3 % (0.0-3.9); FMetHb 0.5 % (0.0-1.5); FO2Hb 98.8 % (94-97); RESPIRATORY RATE 8 b/min; TOTAL HEMOGLOBIN 10.7 G/dl (12.0-16.0)
--- NOTE | 2021-08-31 17:27 | NUR ---
PAGER ID: [phone] MESSAGE: Room: 3012B: Marjan Bryan: Their latest ABG has resulted: pH: 7.377, PCO2: 31.4, PO2: 404.8, HCO3: 18. TED Frazier [phone]
--- NOTE | 2021-08-31 18:32 | NUR ---
Problems reprioritized. Patient report given, questions answered & plan of care reviewed with TED GILL.
[2021-08-31] MEDS: Melatonin 3mg tablet PO SCH (20:57)
[2021-09-01] MEDS: lactulose 20gm/30ml cup PO SCH ×5 (01:13→20:00)
[2021-09-01] MEDS: traMADol 50MG tablet PO SCH ×4 (01:13→19:20)
[2021-09-01 02:00] VITALS: BP 133/81
[2021-09-01] MEDS: ipratropium/albuterol 3ml nebule NEB SCH ×4 (02:26→20:21)
[2021-09-01] MEDS: morphine 2 MG/ML inj. syringe IV PRN ×4 (02:30→22:09)
[2021-09-01 06:00] VITALS: BP 109/94
[2021-09-01 06:55] LABS: ALBUMIN 2.6 G/DL (3.4-5.0); ANION GAP 11 (8-16); BLOOD UREA NITROGEN 41 MG/DL (7-18); BUN/CREATININE RATIO 27.7 (6.6-38.0); CHLORIDE 107 MMOL/L (99-107); CREATININE 1.48 MG/DL (0.40-0.90); MAGNESIUM 1.8 MG/DL (1.5-2.4); POTASSIUM 4.5 MMOL/L (3.5-5.1); SODIUM 141 MMOL/L (135-145); TOTAL CARBON DIOXIDE 23.3 MMOL/L (24-32); eGFR 35 ML/MIN
[2021-09-01 06:58] LABS: GLUCOSE 167 MG/DL (70-104)
[2021-09-01 07:03] LABS: BASOPHILS % (AUTO) 0 % (0-1); EOSINOPHILS % (AUTO) 0.1 % (0-6); HEMATOCRIT 25.7 % (35.0-45.0); HEMOGLOBIN 8.3 g/dl (12.0-16.0); LYMPHOCYTES # (AUTO) 0.1 X10'3 (1.1-4.8); LYMPHOCYTES % (AUTO) 3.5 % (21-51); MEAN CORPUSCULAR HEMOGLOBIN 30.3 PG (27.0-31.0); MEAN CORPUSCULAR HGB CONC 32.3 g/dL (33.0-36.5); MEAN CORPUSCULAR VOLUME 93.8 FL (78-98); MEAN PLATELET VOLUME 7.4 FL (7.4-10.4); MONOCYTES # (AUTO) 0.3 X10'3 (0-0.9); NEUTROPHILS # (AUTO) 2.5 X10'3 (1.8-7.7); NEUTROPHILS % (AUTO) 87.4 % (42-75); RED BLOOD COUNT 2.74 X10'6 (4.20-5.60); RED CELL DISTRIBUTION WIDTH 17.2 % (11.5-14.5); WHITE BLOOD COUNT 2.9 X10'3 (4.5-11.0)
[2021-09-01] MEDS: methylPREDNISolone sod succ 125mg/2ml vial IV SCH ×2 (07:16→19:18)
[2021-09-01] MEDS: metoprolol tartrate 12.5mg (1/2 tablet) PO SCH ×2 (07:18→19:18)
[2021-09-01] MEDS: oxyCODONE/APAP 5-325mg tablet PO SCH ×2 (07:20→19:19)
[2021-09-01] MEDS: furosemide 40mg tablet PO SCH ×2 (07:20→19:19)
[2021-09-01] MEDS: multivitamins, therapeutics tablet PO SCH (07:20)
[2021-09-01] MEDS: rifaximin 550mg tablet PO SCH ×2 (07:27→22:09)
[2021-09-01 07:52] LABS: PLATELET COUNT 33 X10'3 (140-440)
[2021-09-01] MEDS: K and/or MAG REPLACEMENT MC SCH ×2 (08:00→18:53)
[2021-09-01] MEDS: calcium carbonate 500mg chew tablet PO SCH ×2 (08:00→19:20)
--- NOTE | 2021-09-01 08:19 | NUR ---
Paged Dr. England U Tamir RN ext [phone] RE: Marjan Bryan. Platelet today was 33 from 51 yesterday. No signs of active bleeding at this time
--- NOTE | 2021-09-01 08:22 | NUR ---
Initial: Pt admitted w/ acute respiratory failure, COPD w/ exacerbation, and cirrhosis per EMR. Currently on Heart Healthy diet w/ mostly 0-25% intake of meals not meeting needs. Noted pt was placed on BiPAP yesterday 08/31 as well as had thoracentesis w/ 1.6L out per documentation. Hopeful that this may improve PO intake, though pt may do better w/ liquids given respiratory status. Recommend Ensure Enlive TID to assist w/ meeting needs. Also recommend liberalizing to Regular diet given no significant cardiac hx in EMR. LBM 08/31 receiving routine lactulose. Will continue to monitor. Recs: 1. Liberalize to Regular diet 2. Ensure Enlive TID; pending MD verification 3. Bowel care per rx 4. Weekly wts Addendum: 09/01/21 at [address] Amended: Links added.
[2021-09-01 11:00] VITALS: BP 171/88
--- NOTE | 2021-09-01 13:41 | NUR ---
Paged Dr. England PCU Tamir RN ext [phone] RE: Marjan Bryan. Patient requesting to increase the dose of her Morphine, she is on Morphine 1 mg IV q4hrs PRN. She wants to talk to you about this
[2021-09-01 15:00] VITALS: BP 167/83
[2021-09-01] MEDS: hydrALAZINE 20mg/ml inj. IV PRN (16:45)
--- NOTE | 2021-09-01 17:02 | NUR ---
I spoke to Dr. England regarding this patient requesting to increase her Morphine as well as patient being inappropriate today - yelling at the ASSET PROTECTION AGENT, and to me. I also told Dr. England about patient throwing food.
[2021-09-01 18:00] VITALS: BP 153/75
[2021-09-01] MEDS: lactose-reduced food (Ensure Enlive) - 237ml bottle PO SCH (18:00)
[2021-09-01] MEDS: Melatonin 3mg tablet PO SCH (19:18)
[2021-09-01 22:00] VITALS: BP 174/95
[2021-09-01] MEDS: temazepam 15mg capsule PO PRN (22:09)
[2021-09-02 02:00] VITALS: BP 167/83
[2021-09-02] MEDS: ipratropium/albuterol 3ml nebule NEB SCH ×4 (02:00→20:09)
[2021-09-02] MEDS: lactulose 20gm/30ml cup PO SCH ×4 (02:54→20:32)
[2021-09-02] MEDS: traMADol 50MG tablet PO SCH ×4 (02:55→20:34)
[2021-09-02] MEDS: morphine 2 MG/ML inj. syringe IV PRN ×5 (04:43→21:58)
[2021-09-02 06:00] VITALS: BP 173/81
[2021-09-02 06:25] LABS: BASOPHILS % (AUTO) 0 % (0-1); EOSINOPHILS % (AUTO) 0 % (0-6); HEMATOCRIT 26.9 % (35.0-45.0); HEMOGLOBIN 8.8 g/dl (12.0-16.0); LYMPHOCYTES # (AUTO) 0.1 X10'3 (1.1-4.8); LYMPHOCYTES % (AUTO) 1.7 % (21-51); MEAN CORPUSCULAR HEMOGLOBIN 30.5 PG (27.0-31.0); MEAN CORPUSCULAR HGB CONC 32.8 g/dL (33.0-36.5); MEAN PLATELET VOLUME 7.2 FL (7.4-10.4); MONOCYTES # (AUTO) 0.4 X10'3 (0-0.9); MONOCYTES % (AUTO) 10.2 % (2-12); NEUTROPHILS # (AUTO) 3.8 X10'3 (1.8-7.7); NEUTROPHILS % (AUTO) 88.1 % (42-75); RED BLOOD COUNT 2.89 X10'6 (4.20-5.60); RED CELL DISTRIBUTION WIDTH 17.7 % (11.5-14.5); WHITE BLOOD COUNT 4.3 X10'3 (4.5-11.0)
--- NOTE | 2021-09-02 06:30 | NUR ---
Patient in room PCU 3011. I have received report from Hayde JEAN and had the opportunity to ask questions and assume patient care.
[2021-09-02 06:39] LABS: PLATELET COUNT 35 X10'3 (140-440)
[2021-09-02 06:46] LABS: ALBUMIN 2.8 G/DL (3.4-5.0); ANION GAP 10 (8-16); BLOOD UREA NITROGEN 50 MG/DL (7-18); BUN/CREATININE RATIO 29.9 (6.6-38.0); CALCIUM 8.2 MG/DL (8.5-10.1); CHLORIDE 105 MMOL/L (99-107); CREATININE 1.67 MG/DL (0.40-0.90); POTASSIUM 4.7 MMOL/L (3.5-5.1); SODIUM 138 MMOL/L (135-145); TOTAL CARBON DIOXIDE 22.6 MMOL/L (24-32); eGFR 30 ML/MIN
[2021-09-02 06:47] LABS: GLUCOSE 202 MG/DL (70-104)
[2021-09-02] MEDS: K and/or MAG REPLACEMENT MC SCH ×2 (07:32→20:00)
[2021-09-02] MEDS: lactose-reduced food (Ensure Enlive) - 237ml bottle PO SCH ×4 (08:00→20:35)
[2021-09-02] MEDS: calcium carbonate 500mg chew tablet PO SCH ×2 (08:14→20:33)
[2021-09-02] MEDS: methylPREDNISolone sod succ 125mg/2ml vial IV SCH ×2 (08:14→20:33)
[2021-09-02] MEDS: multivitamins, therapeutics tablet PO SCH (08:15)
[2021-09-02] MEDS: furosemide 40mg tablet PO SCH ×2 (08:15→20:34)
[2021-09-02] MEDS: oxyCODONE/APAP 5-325mg tablet PO SCH ×2 (08:16→20:33)
[2021-09-02] MEDS: metoprolol tartrate 12.5mg (1/2 tablet) PO SCH ×2 (08:17→20:34)
[2021-09-02] MEDS: rifaximin 550mg tablet PO SCH ×2 (10:03→20:33)
[2021-09-02 11:00] VITALS: BP 164/85
[2021-09-02] MEDS: hydrALAZINE 20mg/ml inj. IV PRN (12:57)
[2021-09-02] MEDS: ondansetron/PF 4mg/2ml inj IV PRN (12:58)
[2021-09-02] MEDS ORDERED: cefepime 1GM/NS ADD-VANTAGE 100 ML IV SCH (13:30)
[2021-09-02 15:00] VITALS: BP_SYST 146; BP_SYST 164; BP_DIAS 72; BP_DIAS 83
--- NOTE | 2021-09-02 17:19 | NUR ---
A dose of 1mg MS IV as given at 1300. The scan did not complete and transaction was manually entered later at 15:24.
--- NOTE | 2021-09-02 19:51 | NUR ---
patient refused 1800 vitals
[2021-09-02] MEDS: Melatonin 3mg tablet PO SCH (20:34)
[2021-09-02] MEDS: temazepam 15mg capsule PO PRN (20:34)
[2021-09-02 20:36] VITALS: BP 169/85
[2021-09-02 22:00] VITALS: BP 169/85
[2021-09-03] MEDS: traMADol 50MG tablet PO SCH ×4 (01:04→19:13)
[2021-09-03] MEDS: lactulose 20gm/30ml cup PO SCH ×4 (01:04→19:17)
[2021-09-03 02:00] VITALS: BP 165/90
[2021-09-03] MEDS: morphine 2 MG/ML inj. syringe IV PRN ×4 (02:46→21:29)
[2021-09-03] MEDS: hydrALAZINE 20mg/ml inj. IV PRN ×2 (02:49→15:34)
[2021-09-03] MEDS: ipratropium/albuterol 3ml nebule NEB SCH ×4 (03:06→20:52)
[2021-09-03 06:00] VITALS: BP 142/79
--- NOTE | 2021-09-03 07:06 | NUR ---
Patient in room PCU 3011. I have received report from TED GILL, and had the opportunity to ask questions and assume patient care.
[2021-09-03] MEDS: lactose-reduced food (Ensure Enlive) - 237ml bottle PO SCH ×3 (08:00→20:00)
[2021-09-03] MEDS: K and/or MAG REPLACEMENT MC SCH ×2 (08:00→20:00)
[2021-09-03] MEDS: methylPREDNISolone sod succ 125mg/2ml vial IV SCH ×2 (08:19→19:16)
[2021-09-03] MEDS: metoprolol tartrate 12.5mg (1/2 tablet) PO SCH ×2 (08:25→19:12)
[2021-09-03] MEDS: furosemide 40mg tablet PO SCH ×2 (08:26→13:39)
[2021-09-03] MEDS: calcium carbonate 500mg chew tablet PO SCH ×2 (08:26→19:15)
[2021-09-03] MEDS: oxyCODONE/APAP 5-325mg tablet PO SCH ×2 (08:26→19:15)
[2021-09-03] MEDS: rifaximin 550mg tablet PO SCH ×2 (08:26→19:13)
[2021-09-03] MEDS: multivitamins, therapeutics tablet PO SCH (08:26)
[2021-09-03 11:00] VITALS: BP 150/84
[2021-09-03] MEDS ORDERED: cefepime 1GM/NS ADD-VANTAGE 100 ML IV SCH (12:15)
[2021-09-03 18:00] VITALS: BP 177/80
[2021-09-03 18:47] VITALS: BP 189/95
--- NOTE | 2021-09-03 18:50 | NUR ---
Problems reprioritized. Patient report given, questions answered & plan of care reviewed with TED COX.
[2021-09-03] MEDS: Melatonin 3mg tablet PO SCH (21:28)
[2021-09-03 22:00] VITALS: BP 164/95
[2021-09-03] MEDS ORDERED: cefepime 1GM/NS ADD-VANTAGE 100 ML IV ONE (23:00)
[2021-09-03] MEDS: temazepam 15mg capsule PO PRN (23:09)
[2021-09-04 02:00] VITALS: BP 161/78
[2021-09-04] MEDS: lactulose 20gm/30ml cup PO SCH ×4 (02:00→19:42)
[2021-09-04] MEDS: traMADol 50MG tablet PO SCH ×4 (02:00→19:38)
[2021-09-04] MEDS: ipratropium/albuterol 3ml nebule NEB SCH ×4 (03:11→21:36)
[2021-09-04 06:00] VITALS: BP 168/76
--- NOTE | 2021-09-04 06:00 | NUR ---
Patient in room PCU 3011. I have received report from Keira JEAN and had the opportunity to ask questions and assume patient care.
[2021-09-04] MEDS: K and/or MAG REPLACEMENT MC SCH ×2 (08:00→20:00)
--- NOTE | 2021-09-04 08:24 | NUR ---
Reassessment: Pt continues on Heart Healthy diet w/ similar PO intake, mostly 0-25% of meals though has had 100% of first 2 ONS. Pt remains on BiPAP per documentation. Recommend Liberalizing to Regular diet given poor PO intake. LBM 09/03 receiving routine lactulose. No change to recommendations at this time, will continue to monitor. Recs: 1. Liberalize to Regular diet 2. Ensure Enlive TID 3. Bowel care per rx 4. Weekly wts Addendum: 09/04/21 at [address] Amended: Links added.
[2021-09-04] MEDS: multivitamins, therapeutics tablet PO SCH (08:41)
[2021-09-04] MEDS: metoprolol tartrate 12.5mg (1/2 tablet) PO SCH ×2 (08:41→19:39)
[2021-09-04] MEDS: methylPREDNISolone sod succ 125mg/2ml vial IV SCH ×2 (08:41→19:41)
[2021-09-04] MEDS: rifaximin 550mg tablet PO SCH ×2 (08:43→19:40)
[2021-09-04] MEDS: furosemide 40mg tablet PO SCH (08:43)
[2021-09-04] MEDS: oxyCODONE/APAP 5-325mg tablet PO SCH ×2 (08:43→19:40)
[2021-09-04] MEDS: ondansetron/PF 4mg/2ml inj IV PRN (08:47)
[2021-09-04] MEDS: calcium carbonate 500mg chew tablet PO SCH ×2 (08:58→19:40)
[2021-09-04 11:00] VITALS: BP 166/103
[2021-09-04] MEDS: morphine 2 MG/ML inj. syringe IV PRN ×2 (12:14→17:00)
[2021-09-04] MEDS: lactose-reduced food (Ensure Enlive) - 237ml bottle PO SCH ×3 (13:00→20:00)
[2021-09-04 15:00] VITALS: BP 178/85
[2021-09-04 18:00] VITALS: BP 115/87
--- NOTE | 2021-09-04 18:56 | NUR ---
Problems reprioritized. Patient report given, questions answered & plan of care reviewed with Keira JEAN, patient stable at transfer of care.
[2021-09-04] MEDS: temazepam 15mg capsule PO PRN (19:40)
[2021-09-04] MEDS: Melatonin 3mg tablet PO SCH (21:00)
[2021-09-04 22:00] VITALS: BP 169/81
[2021-09-04] MEDS ORDERED: cefepime inj. 0.5 GM in normal saline 100ml IV soln 100 ML IV SCH (23:00)
[2021-09-05 02:00] VITALS: BP 179/91
[2021-09-05] MEDS: traMADol 50MG tablet PO SCH ×4 (02:00→19:06)
[2021-09-05] MEDS: lactulose 20gm/30ml cup PO SCH ×5 (02:23→19:50)
[2021-09-05] MEDS: morphine 2 MG/ML inj. syringe IV PRN ×3 (02:34→14:01)
[2021-09-05] MEDS: temazepam 15mg capsule PO PRN ×3 (02:34→19:05)
[2021-09-05] MEDS: hydrALAZINE 20mg/ml inj. IV PRN ×2 (02:43→19:08)
--- NOTE | 2021-09-05 02:54 | NUR ---
pt's medication given without electronic scanning due to system was down. All other pt identification was used.
[2021-09-05] MEDS: ipratropium/albuterol 3ml nebule NEB SCH ×4 (03:01→21:39)
[2021-09-05 06:00] VITALS: BP 171/82
--- NOTE | 2021-09-05 06:12 | NUR ---
Patient in room PCU 3011. I have received report from Keira JEAN and had the opportunity to ask questions and assume patient care.
[2021-09-05] MEDS: lactose-reduced food (Ensure Enlive) - 237ml bottle PO SCH ×3 (08:00→18:00)
[2021-09-05] MEDS: K and/or MAG REPLACEMENT MC SCH ×2 (08:00→19:49)
[2021-09-05] MEDS: metoprolol tartrate 12.5mg (1/2 tablet) PO SCH ×2 (09:14→19:07)
[2021-09-05] MEDS: rifaximin 550mg tablet PO SCH ×2 (09:15→19:05)
[2021-09-05] MEDS: calcium carbonate 500mg chew tablet PO SCH ×2 (09:15→19:07)
[2021-09-05] MEDS: multivitamins, therapeutics tablet PO SCH (09:15)
[2021-09-05] MEDS: oxyCODONE/APAP 5-325mg tablet PO SCH (09:16)
[2021-09-05] MEDS: methylPREDNISolone sod succ 125mg/2ml vial IV SCH ×2 (09:17→19:07)
[2021-09-05 11:00] VITALS: BP 168/77
[2021-09-05 11:28] LABS: BASOPHILS % (AUTO) 0.1 % (0-1); EOSINOPHILS % (AUTO) 0 % (0-6); HEMATOCRIT 31.1 % (35.0-45.0); LYMPHOCYTES # (AUTO) 0.1 X10'3 (1.1-4.8); LYMPHOCYTES % (AUTO) 1.4 % (21-51); MEAN CORPUSCULAR HEMOGLOBIN 30.5 PG (27.0-31.0); MEAN CORPUSCULAR VOLUME 95.2 FL (78-98); MONOCYTES # (AUTO) 0.7 X10'3 (0-0.9); MONOCYTES % (AUTO) 9.4 % (2-12); NEUTROPHILS # (AUTO) 6.4 X10'3 (1.8-7.7); NEUTROPHILS % (AUTO) 89.1 % (42-75); RED BLOOD COUNT 3.27 X10'6 (4.20-5.60); RED CELL DISTRIBUTION WIDTH 17.9 % (11.5-14.5); WHITE BLOOD COUNT 7.2 X10'3 (4.5-11.0)
[2021-09-05 11:31] LABS: PLATELET COUNT 44 X10'3 (140-440)
[2021-09-05 11:42] LABS: ALBUMIN 2.6 G/DL (3.4-5.0); ANION GAP 9 (8-16); BLOOD UREA NITROGEN 64 MG/DL (7-18); BUN/CREATININE RATIO 44.4 (6.6-38.0); CALCIUM 8.1 MG/DL (8.5-10.1); CHLORIDE 102 MMOL/L (99-107); CREATININE 1.44 MG/DL (0.40-0.90); GLUCOSE 267 MG/DL (70-104); POTASSIUM 4.4 MMOL/L (3.5-5.1); SODIUM 136 MMOL/L (135-145); TOTAL CARBON DIOXIDE 25.5 MMOL/L (24-32); eGFR 36 ML/MIN
--- NOTE | 2021-09-05 14:14 | NUR ---
Paged Dr. England asking if we could order a regular diet for the patient. She has not been eating and wants better tasting food. PAGER ID: [phone] MESSAGE: [phone], Irvin Abbott. Patient has not been eating her food, she is very upset and asking for a regular diet? Can I order a reg diet? Berkley [facility] [phone].
--- NOTE | 2021-09-05 15:09 | NUR ---
Paged Dr. Eagle regarding patients pain and her asking for an increased dose of morphine. PAGER ID: [phone] MESSAGE: [phone], Irvin Abbott. Patient is also stating she is still in a lot of pain and is asking for her morphine dose to be increased. She is currently getting 1mg q4h PRN. Berkley [facility] [phone]
[2021-09-05 18:00] VITALS: BP 173/74
[2021-09-05 22:00] VITALS: BP 186/84
[2021-09-05] MEDS ORDERED: cefepime inj. 1 GM in normal saline 100ml IV soln 100 ML IV SCH (23:00)
[2021-09-05] MEDS ORDERED: hydrALAZINE 20mg/ml inj. IV PRN (23:10)
[2021-09-05] MEDS: Melatonin 3mg tablet PO SCH (23:39)
[2021-09-05] MEDS: oxyCODONE/APAP 5-325mg tablet PO PRN (23:45)
--- NOTE | 2021-09-06 00:04 | NUR ---
pt had a blood pressure of 185/83 md gibbons was notified with new order for hydralazine iv 10mg po 8hrly prn ,for blood pressure more than 170
[2021-09-06] MEDS: morphine 2 MG/ML inj. syringe IV PRN ×2 (00:20→10:07)
[2021-09-06 02:00] VITALS: BP 122/88
[2021-09-06] MEDS: lactulose 20gm/30ml cup PO SCH ×3 (02:00→14:00)
[2021-09-06] MEDS: traMADol 50MG tablet PO SCH ×4 (02:13→15:22)
[2021-09-06] MEDS: temazepam 15mg capsule PO PRN ×2 (02:13→15:11)
[2021-09-06] MEDS: ipratropium/albuterol 3ml nebule NEB SCH ×3 (03:06→14:48)
[2021-09-06 06:00] VITALS: BP 101/62
[2021-09-06 06:53] LABS: BASOPHILS % (AUTO) 0.4 % (0-1); EOSINOPHILS % (AUTO) 0 % (0-6); HEMATOCRIT 29.9 % (35.0-45.0); HEMOGLOBIN 9.7 g/dl (12.0-16.0); LYMPHOCYTES # (AUTO) 0.1 X10'3 (1.1-4.8); LYMPHOCYTES % (AUTO) 1.1 % (21-51); MEAN CORPUSCULAR HEMOGLOBIN 30.5 PG (27.0-31.0); MEAN CORPUSCULAR HGB CONC 32.4 g/dL (33.0-36.5); MEAN CORPUSCULAR VOLUME 94.3 FL (78-98); MEAN PLATELET VOLUME 7.5 FL (7.4-10.4); MONOCYTES # (AUTO) 0.9 X10'3 (0-0.9); NEUTROPHILS # (AUTO) 9.3 X10'3 (1.8-7.7); NEUTROPHILS % (AUTO) 89.5 % (42-75); PLATELET COUNT 60 X10'3 (140-440); RED BLOOD COUNT 3.17 X10'6 (4.20-5.60); RED CELL DISTRIBUTION WIDTH 18.3 % (11.5-14.5); WHITE BLOOD COUNT 10.4 X10'3 (4.5-11.0)
[2021-09-06 07:17] LABS: ALANINE AMINOTRANSFERASE 52 U/L (12-78); ALBUMIN 2.5 G/DL (3.4-5.0); ALBUMIN/GLOBULIN RATIO 0.5 (1.1-1.5); ALKALINE PHOSPHATASE 174 IU/L (46-116); ANION GAP 8 (8-16); ASPARTATE AMINO TRANSFERASE 52 U/L (10-37); BLOOD UREA NITROGEN 63 MG/DL (7-18); BUN/CREATININE RATIO 47.4 (6.6-38.0); CALCIUM 8.2 MG/DL (8.5-10.1); CHLORIDE 100 MMOL/L (99-107); CREATININE 1.33 MG/DL (0.40-0.90); POTASSIUM 4.8 MMOL/L (3.5-5.1); SODIUM 135 MMOL/L (135-145); TOTAL CARBON DIOXIDE 26.7 MMOL/L (24-32); TOTAL PROTEIN 7.6 G/DL (6.4-8.2); eGFR 39 ML/MIN
[2021-09-06 07:19] LABS: GLUCOSE 350 MG/DL (70-104)
[2021-09-06] MEDS ORDERED: cefepime 1GM/NS ADD-VANTAGE 100 ML IV SCH (08:45)
[2021-09-06] MEDS: methylPREDNISolone sod succ 125mg/2ml vial IV SCH (10:05)
[2021-09-06] MEDS: rifaximin 550mg tablet PO SCH (10:07)
[2021-09-06] MEDS: calcium carbonate 500mg chew tablet PO SCH (10:07)
[2021-09-06] MEDS: oxyCODONE/APAP 5-325mg tablet PO PRN (10:08)
[2021-09-06] MEDS: lactose-reduced food (Ensure Enlive) - 237ml bottle PO SCH (10:09)
[2021-09-06] MEDS: metoprolol tartrate 12.5mg (1/2 tablet) PO SCH (10:27)
[2021-09-06] MEDS: multivitamins, therapeutics tablet PO SCH (10:27)
[2021-09-06 11:00] VITALS: BP 143/65
[2021-09-06] MEDS ORDERED: FURO40TA4 PO (11:25)
[2021-09-06 14:10] LABS: MAGNESIUM 1.8 MG/DL (1.5-2.4)
[2021-09-06] MEDS ORDERED: insulin Lispro (HumaLOG) vial - multi-dose SQ SCH (14:10)
--- NOTE | 2021-09-06 15:00 | NUR ---
dR Colin NOTIFIED OF GLUCOSE GREATER THAN 300 WITH HUMALOG INSULIN ORDERS GIVEN. Addendum: 09/06/21 at 1739 by Sarahi Ruelas RN Amended: Links added.
[2021-09-06 15:37] VITALS: BP 161/69
== END 2021-09-06 16:10 | DRG 432 ==
LOC: ER 04:34 → ED HOLD 07:52 → PCU 3S 15:05
PROVIDERS: ADMIT Internal Medicine; ATTEND Internal Medicine
PROC: 5A09357 Assistance with Respiratory Ventilation, Less than 24 Consecutive Hours, Continuous Positive Airway Pressure (ICD-10-PCS; 2021-08-28)
PROC: 0W9G3ZZ Drainage of Peritoneal Cavity, Percutaneous Approach (ICD-10-PCS; principal; 2021-08-29)
PROC: 0W993ZX Drainage of Right Pleural Cavity, Percutaneous Approach, Diagnostic (ICD-10-PCS; 2021-08-31)
PROC: 5A09357 Assistance with Respiratory Ventilation, Less than 24 Consecutive Hours, Continuous Positive Airway Pressure (ICD-10-PCS; 2021-08-31)
PROC: 5A09357 Assistance with Respiratory Ventilation, Less than 24 Consecutive Hours, Continuous Positive Airway Pressure (ICD-10-PCS; 2021-09-01)
PROC: 5A09357 Assistance with Respiratory Ventilation, Less than 24 Consecutive Hours, Continuous Positive Airway Pressure (ICD-10-PCS; 2021-09-02)
PROC: 5A09357 Assistance with Respiratory Ventilation, Less than 24 Consecutive Hours, Continuous Positive Airway Pressure (ICD-10-PCS; 2021-09-04)
PROC: 5A09357 Assistance with Respiratory Ventilation, Less than 24 Consecutive Hours, Continuous Positive Airway Pressure (ICD-10-PCS; 2021-09-05)
PROC: 5A09357 Assistance with Respiratory Ventilation, Less than 24 Consecutive Hours, Continuous Positive Airway Pressure (ICD-10-PCS; 2021-09-06)
DX: K74.60 Unspecified cirrhosis of liver (principal); J96.00 Acute respiratory failure, unspecified whether with hypoxia or hypercapnia; I21.4 Non-ST elevation (NSTEMI) myocardial infarction; N17.0 Acute kidney failure with tubular necrosis; J18.9 Pneumonia, unspecified organism; J44.0 Chronic obstructive pulmonary disease with (acute) lower respiratory infection; D61.818 Other pancytopenia; I13.0 Hypertensive heart and chronic kidney disease with heart failure and stage 1 through stage 4 chronic kidney disease, or unspecified chronic kidney disease; R18.8 Other ascites; J91.8 Pleural effusion in other conditions classified elsewhere; J44.1 Chronic obstructive pulmonary disease with (acute) exacerbation; K76.6 Portal hypertension; K76.9 Liver disease, unspecified; F32.A Depression, unspecified; F41.9 Anxiety disorder, unspecified; G89.29 Other chronic pain; Z20.822 Contact with and (suspected) exposure to COVID-19; R14.0 Abdominal distension (gaseous); R16.1 Splenomegaly, not elsewhere classified; B18.2 Chronic viral hepatitis C; E11.22 Type 2 diabetes mellitus with diabetic chronic kidney disease; E86.0 Dehydration; I50.9 Heart failure, unspecified; F17.210 Nicotine dependence, cigarettes, uncomplicated; K72.10 Chronic hepatic failure without coma; N18.9 Chronic kidney disease, unspecified; Z79.84 Long term (current) use of oral hypoglycemic drugs; Z88.8 Allergy status to other drugs, medicaments and biological substances; Z90.49 Acquired absence of other specified parts of digestive tract; Z56.0 Unemployment, unspecified; Z79.899 Other long term (current) drug therapy; Y95 Nosocomial condition
CPT/HCPCS: 32555; 36410; 36415; 36600; 49083; 71045; 71250; 76937; 80048; 80053; 82140; 82803; 82945; 83036; 83615; 83735; 83880; 83986; 84132; 84157; 84484; 85007; 85018; 85025; 85610; 87081; 94640; 94660; 94760; 99285; A4333; A6258; A6449; C1751; G0378; J0360; J0692; J1815; J1940; J2270; J2405; J2930; J3490; J7040